=== PATIENT | male | born 1935 | race Caucasian/White ===

== ENCOUNTER 2016-08-17 05:06 | Observation (INO) | payer MEDICARE ==
[~2016-08-17] VITALS: Ht 177.8 cm; Wt 95.5 kg
[2016-08-17] VITALS (8 sets, daily range): BP systolic 146–195; BP diastolic 88–102; PULSE 71–84; RESP 15–20; TEMP 97.8–98.4; O2SAT 95–100
[~2016-08-17 05:06] MED LIST: ALPR0.5T99 PO; ASPI81 PO; ATOR40TA PO; AVOD0.5C PO; BRIM.2%O OU; IMDU60TA PO; LASI20TA PO; METO50TA PO; MINO50TA PO; PRIM50TA PO; PROT40TA PO; TAMS0.4C4 PO; TIMO0.255 OU
[2016-08-17] MEDS ORDERED: ATOR40TA16 PO (05:32)
[2016-08-17] MEDS ORDERED: ALPH0.1S EACH EYE (05:32)
[2016-08-17] MEDS ORDERED: ASPI81CH37 CHEW (05:32)
[2016-08-17] MEDS ORDERED: ALPR0.5T3 PO (05:32)
[2016-08-17] MEDS ORDERED: AVOD0.5C PO (05:32)
[2016-08-17] MEDS ORDERED: FURO1TAB62 PO (05:41)
[2016-08-17] MEDS ORDERED: METO50TA PO (05:41)
[2016-08-17] MEDS ORDERED: ISOS30TA3 PO (05:41)
[2016-08-17] MEDS ORDERED: MINO50CA PO (05:43)
[2016-08-17] MEDS ORDERED: TIMO5SOL EACH EYE (05:43)
[2016-08-17] MEDS ORDERED: PRIM250T5 PO (05:43)
[2016-08-17] MEDS ORDERED: PANT40TA3 PO (05:43)
[2016-08-17] MEDS ORDERED: SODIUM CHLORIDE 0.9% FLUSH 5 ML FLUSH IVF PRN ×2 (05:45→07:00)
--- NOTE | 2016-08-17 05:56 | PD ---
HPI Chief Complaint: Numbness/Tingling Time Seen by Provider: 05:19 Travel History International Travel<30 days: No Contact w/Intl Traveler<30days: No Traveled to known affect area: No History of Present Illness HPI Is a 81 year-old man who presents to the emergency department complaining of numbness tingling in his right side as well as lightheadedness dizziness. He reports some dizziness intermittently for the past month or so. Is especially bad today to the point that he couldn't walk without holding on the covarrubias. Yesterday evening about 5 or 6:00 he started to notice numbness tingling paresthesias in the right arm. He didn't notice any overt weakness or clumsiness in the arm. He went to bed thinking it would go away and then woke up with prominent persisting symptoms. He's never had these type of symptoms before. He notices that some of the leg as well. He called family who helped him get to the emergency department with a pretty much at a care and because of his unsteadiness and generalized weakness although no focal weakness on the right side. History Past Medical History Narrative Medical CAD, history of stents, remote CABG Glaucoma Hypertension hyperlipidemia CHF Tetanus Vaccination: Unknown Influenza Vaccination: Yes Social History Alcohol Use: No Tobacco Use: No Allergies-Medications (Allergen,Severity, Reaction): Coded Allergies: No Known Allergies (Verified , 08/17/16) Reported Meds & Prescriptions Reported Meds & Active Scripts Active Reported Timolol Opth Drops 0.25 % Soln 1 Drop EACH EYE BID Primidone 250 Mg Tab 250 Mg PO TID Pantoprazole (Pantoprazole Sodium) 40 Mg Tab 40 Mg PO DAILY Minocycline (Minocycline HCl) 50 Mg Cap 50 Mg PO BID Metoprolol Tartrate 50 Mg Tab 50 Mg PO BID Isosorbide Mononitrate ER (Isosorbide Mononitrate) 30 Mg Jackeline 30 Mg PO DAILY Lasix (Furosemide) 20 Mg Tab 20 Mg PO DAILY Avodart (Dutasteride) 0.5 Mg Cap 0.5 Mg PO DAILY Alphagan P Opth Drops (Brimonidine Tartrate) 0.1% Soln 1 Drop EACH EYE Q8HR Atorvastatin (Atorvastatin Calcium) 40 Mg Tab 40 Mg PO HS Aspirin Low Dose (Aspirin) 81 Mg Chew 81 Mg CHEW DAILY Alprazolam 0.5 Mg Tab 0.5 Mg PO Q8H PRN Review of Systems Except as stated in HPI: all other systems reviewed are Neg Physical Exam Narrative GENERAL: 81 year-old man, no acute distress. SKIN: Warm and dry. HEAD: Atraumatic. Normocephalic. EYES: Pupils equal and round. No scleral icterus. No injection or drainage. ENT: No nasal bleeding or discharge. Mucous membranes pink and moist. NECK: Trachea midline. No JVD. CARDIOVASCULAR: Regular rate and rhythm. No murmur appreciated. RESPIRATORY: No accessory muscle use. Clear to auscultation. Breath sounds equal bilaterally. GASTROINTESTINAL: Abdomen soft, non-tender, nondistended. Hepatic and splenic margins not palpable. MUSCULOSKELETAL: No obvious deformities. No clubbing. No cyanosis. No edema. NEUROLOGICAL: Awake and alert. Cranial nerves II through XII are intact. He has left beating nystagmus on leftward gaze. EOMs are otherwise intact. Normal finger to nose. Strength full and equal upper and lower extremities. Sensation to light touch intact and symmetric upper and lower extremities. PSYCHIATRIC: Appropriate mood and affect; insight and judgment normal. Data Data Last Documented VS Vital Signs Date Time Temp Pulse Resp B/P Pulse Ox O2 Delivery O2 Flow Rate FiO2 08/17/16 06:00 18 99 08/17/16 06:00 Room Air 08/17/16 05:14 98.1 84 184/91 Orders Electrocardiogram (08/17/16 05:38) Prothrombin Time / Inr (Pt) (08/17/16 05:38) Act Partial Throm Time (Ptt) (08/17/16 05:38) Complete Blood Count With Diff (08/17/16 05:38) Comprehensive Metabolic Panel (08/17/16 05:38) Urinalysis - C+S If Indicated (08/17/16 05:38) Ct Brain W/O Iv Contrast(Rout) (08/17/16 05:38) Chest, Single Ap (08/17/16 05:38) Ecg Monitoring (08/17/16 05:38) Iv Access Insert/Monitor (08/17/16 05:38) Oximetry (08/17/16 05:38) Sodium Chloride 0.9% Flush (Ns Flush) (08/17/16 05:45) Admit Order (Ed Use Only) (08/17/16 ) Labs Laboratory Tests Test 08/17/16 06:05 White Blood Count 6.4 TH/MM3 Red Blood Count 4.35 MIL/MM3 Hemoglobin 13.5 GM/DL Hematocrit 40.1 % Mean Corpuscular Volume 92.3 FL Mean Corpuscular Hemoglobin 31.1 PG Mean Corpuscular Hemoglobin 33.7 % Concent Red Cell Distribution Width 12.3 % Platelet Count 155 TH/MM3 Mean Platelet Volume 8.3 FL Neutrophils (%) (Auto) 70.9 % Lymphocytes (%) (Auto) 15.5 % Monocytes (%) (Auto) 8.8 % Eosinophils (%) (Auto) 4.4 % Basophils (%) (Auto) 0.4 % Neutrophils # (Auto) 4.5 TH/MM3 Lymphocytes # (Auto) 1.0 TH/MM3 Monocytes # (Auto) 0.6 TH/MM3 Eosinophils # (Auto) 0.3 TH/MM3 Basophils # (Auto) 0.0 TH/MM3 CBC Comment DIFF FINAL Differential Comment Prothrombin Time 10.8 SEC Prothromb Time International 1.0 RATIO Ratio Activated Partial 27.3 SEC Thromboplast Time Sodium Level 141 MEQ/L Potassium Level 4.5 MEQ/L Chloride Level 106 MEQ/L Carbon Dioxide Level 29.5 MEQ/L Anion Gap 6 MEQ/L Blood Urea Nitrogen 21 MG/DL Creatinine 1.50 MG/DL Estimat Glomerular Filtration 45 ML/MIN Rate Random Glucose 143 MG/DL Calcium Level 8.4 MG/DL Total Bilirubin 0.3 MG/DL Aspartate Amino Transf 17 U/L (AST/SGOT) Alanine Aminotransferase 28 U/L (ALT/SGPT) Alkaline Phosphatase 84 U/L Total Protein 7.2 GM/DL Albumin 3.5 GM/DL [facility] Medical Decision Making Medical Screen Exam Complete: Yes Emergency Medical Condition: Yes Interpretation(s) My review of EKG: Normal sinus rhythm at a rate of 68, normal axis, normal intervals, some lateral T-wave flattening is nonspecific. LABS: CBC is unremarkable. CMP remarkable for mildly elevated BUN and creatinine. Coags pending CT head: Mild central cortical atrophy. No acute findings. Chest x-ray: Lungs are clear. Differential Diagnosis CVA, paresthesias, radiculopathy, other Narrative Course Medical decision making INITIAL: 81-year-old male presents of right sided paresthesias and numbness. She has some dizziness as well as left beating nystagmus. No dysmetric or or focal weakness. Exam is otherwise intact. We'll check labs, x-ray, CT head, reassess. FINAL: Initial studies are unremarkable. We'll plan admission for observation, MRI, TIA/CVA workup. Admitting Information Admitting Physician Requests: Observation Chase Ventura MD Aug 17, 2016 05:56
--- NOTE | 2016-08-17 06:13 | RADHPO ---
EXAM DATE/TIME: 08/17/2016 05:46 [facility] COMPARISON: CHEST SINGLE AP, December 07, 2015, 19:09. INDICATIONS : Short of breath with dizziness. MEDICAL HISTORY : Cardiovascular disease. SURGICAL HISTORY : 6 cardiac stents. ENCOUNTER: Initial ACUITY: 1 day PAIN SCORE: 5/10 LOCATION: Right chest FINDINGS: A single view of the chest demonstrates the lungs to be symmetrically aerated without evidence of mas s, infiltrate or effusion. The cardiomediastinal contours are unremarkable. Osseous structures are intact. Prior median sternotomy. CONCLUSION: The lungs are clear. Fritz Corral MD on August 17, 2016 at 6:11 Board Certified Radiologist. This report was verified electronically.
[2016-08-17 06:22] LABS: AUTOMATED NEUTROPHIL # 4.5 TH/MM3 (1.8-7.7); BASOPHIL % 0.4 % (0.0-2.0); EOSINOPHIL # 0.3 TH/MM3 (0-0.4); EOSINOPHIL % 4.4 % (0.0-4.0); HEMATOCRIT 40.1 % (39.0-51.0); HEMO FLAGS DIFF FINAL; LYMPH % 15.5 % (9.0-44.0); MEAN CELL VOLUME 92.3 FL (80.0-100.0); MEAN CORPUSCULAR HEMOGLOBIN 31.1 PG (27.0-34.0); MEAN CORPUSCULAR HGB CONC 33.7 % (32.0-36.0); MONO % 8.8 % (0.0-8.0); NEUT % 70.9 % (16.0-70.0); PLATELET COUNT 155 TH/MM3 (150-450); RED BLOOD COUNT 4.35 MIL/MM3 (4.50-5.90); RED CELL DISTRIBUTION WIDTH 12.3 % (11.6-17.2); WHITE BLOOD COUNT 6.4 TH/MM3 (4.0-11.0)
--- NOTE | 2016-08-17 06:23 | RADHPO ---
EXAM DATE/TIME: 08/17/2016 06:12 [facility] COMPARISON: No previous studies available for comparison. INDICATIONS : Right sided facial numbness and tingling. RADIATION DOSE: 58.94 CTDIvol (mGy) MEDICAL HISTORY : Myocardial infarction. Hypertension. SURGICAL HISTORY : Coronary artery stent. ENCOUNTER: Initial ACUITY: 1 day PAIN SCALE: 0/10 LOCATION: cranial TECHNIQUE: Multiple contiguous axial images were obtained of the head. Using automated exposure control and adj ustment of the mA and/or kV according to patient size, radiation dose was kept as low as reasonably a chievable to obtain optimal diagnostic quality images. FINDINGS: CEREBRUM: The ventricles, sulci, and basal cisterns are prominent, characteristic of moderate central and corti gemma atrophy.. There is good huang/white matter differentiation. No evidence of midline shift, mass l esion, hemorrhage or acute infarction. No extra-axial fluid collections are seen. POSTERIOR FOSSA: The cerebellum and brainstem are intact. The 4th ventricle is midline. The cerebellopontine angle i s unremarkable. EXTRACRANIAL: The visualized portion of the orbits is intact. SKULL: The calvaria is intact. No evidence of skull fracture. CONCLUSION: Moderate central and cortical atrophy. No acute findings. Fritz Corral MD on August 17, 2016 at 6:20 Board Certified Radiologist. This report was verified electronically.
[2016-08-17 06:29] LABS: CHLORIDE 106 MEQ/L (98-107); POTASSIUM 4.5 MEQ/L (3.5-5.1); SODIUM (NA) 141 MEQ/L (136-145)
[2016-08-17 06:33] LABS: ANION GAP 6 MEQ/L (5-15); BICARBONATE 29.5 MEQ/L (21.0-32.0); BLOOD UREA NITROGEN 21 MG/DL (7-18)
[2016-08-17 06:36] LABS: ALT (GPT) 28 U/L (12-78); AST (GOT) 17 U/L (15-37); GLOMERULAR FILTRATION RATE 45 ML/MIN (>89)
[2016-08-17 06:38] LABS: TOTAL BILIRUBIN ADULT 0.3 MG/DL (0.2-1.0)
[2016-08-17 06:39] LABS: ALKALINE PHOSPHATASE 84 U/L (45-117)
[2016-08-17 06:54] LABS: APTT (PATIENT) 27.3 SEC (24.3-30.1); PROTHROMBIN TIME - PATIENT 10.8 SEC (9.8-11.6)
[2016-08-17] MEDS ORDERED: PANTOPRAZOLE SOD 20 MG DELAYED RELEASE TAB PO ONE ×2 (07:15→10:00)
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
[2016-08-17] MEDS ORDERED: ALPRAZolam 0.5 MG TAB PO PRN (08:45)
[2016-08-17] MEDS: ASPIRIN 325 MG TAB PO SCH (09:56)
[2016-08-17] MEDS: METOPROLOL TARTRATE 50 MG TAB PO SCH ×2 (09:56→20:01)
[2016-08-17] MEDS: TIMOLOL MALEATE 0.25% OPHT SOLN 5 ML BTL EACH EYE SCH ×2 (09:57→20:01)
[2016-08-17] MEDS: MINOCYCLINE HCL 50 MG CAP PO SCH ×2 (10:00→20:01)
[2016-08-17] MEDS: SODIUM CHLORIDE 0.9% FLUSH 5 ML FLUSH IVF SCH ×2 (10:01→20:01)
[2016-08-17] MEDS: ISOSORBIDE MONONITRATE 30 MG TAB PO SCH (10:01)
[2016-08-17] MEDS: KETOCONAZOLE 2% CREAM 15 GM TOPICAL SCH ×2 (10:08→20:01)
[2016-08-17] MEDS: PRIMIDONE 250 MG TAB PO SCH ×3 (10:08→17:12)
[2016-08-17] MEDS: FINASTERIDE 5 MG TAB PO SCH (10:08)
--- NOTE | 2016-08-17 11:13 | EC ---
Study Study Date:08/17/2016 STUDY CONCLUSIONS SUMMARY - Left ventricle: The cavity size was normal. Wall thickness was normal. Systolic function was normal. The estimated ejection fraction was in the range of 50% to 55%. Wall motion was normal; there were no regional wall motion abnormalities. Doppler parameters are consistent with abnormal left ventricular relaxation (grade 1 diastolic dysfunction). - Aortic valve: Trace regurgitation. - Pulmonic valve: Mild regurgitation. If LV function is below 40, please consider prescribing an ACEI or ARB or document rationale for non-use. PROCEDURE DATA STUDY STATUS: Elective. Procedure: Transthoracic echocardiography. Image quality was good. Scanning was performed from the parasternal, apical, and subcostal acoustic windows. Study completion: The patient tolerated the procedure well. Transthoracic echocardiography. M-mode, complete 2D, complete spectral Doppler, and color Doppler. Patient status: Inpatient. CARDIAC ANATOMY LEFT VENTRICLE: The cavity size was normal. Wall thickness was normal. Systolic function was normal. The estimated ejection fraction was in the range of 50% to 55%. Wall motion was normal; there were no regional wall motion abnormalities. Doppler parameters are consistent with abnormal left ventricular relaxation (grade 1 diastolic dysfunction). AORTIC VALVE: Trileaflet; mildly thickened, mildly calcified leaflets. Doppler: Transvalvular velocity was within the normal range. There was no stenosis. Trace regurgitation. Mean gradient: 5mm Hg (S). AORTA: Aortic root: The aortic root was normal in size. MITRAL VALVE: Structurally normal valve. Doppler: Transvalvular velocity was within the normal range. There was no evidence for stenosis. No regurgitation. LEFT ATRIUM: The atrium was normal in size. RIGHT VENTRICLE: The cavity size was normal. Wall thickness was normal. PULMONIC VALVE: Doppler: Transvalvular velocity was within the normal range. There was no evidence for stenosis. Mild regurgitation. TRICUSPID VALVE: Structurally normal valve. Doppler: Transvalvular velocity was within the normal range. No regurgitation. PULMONARY ARTERY: The main pulmonary artery was normal-sized. Systolic pressure was within the normal range. RIGHT ATRIUM: The atrium was normal in size. PERICARDIUM: There was no pericardial effusion. SYSTEMIC VEINS: Inferior vena cava: The vessel was normal in size. BASIC MEASUREMENTS ADULT Normal Left ventricle LV internal dimension, ED, chordal level, *40.7 mm 43-52 PLAX LV internal dimension, ES, chordal level, 32.2 mm 23-38 PLAX Fractional shortening, chordal level, PLAX *21 % >29 LV posterior wall thickness, ED 8.15 mm IVS/LVPW ratio, ED 1.03 <1.3 Ventricular septum Septal thickness, ED 8.41 mm Left atrium Anterior-posterior dimension 33 mm Right ventricle RV internal dimension, ED, PLAX 21.7 mm 19-38 DOPPLER MEASUREMENTS ADULT Normal Main pulmonary artery Pressure, S 13 mm Hg =30 Aortic valve Peak velocity, S 143 cm/s Mean velocity, S 100 cm/s VTI, S 35.2 cm Mean gradient, S 5 mm Hg Mitral valve Peak E-wave velocity 50.3 cm/s Peak A-wave velocity 81.9 cm/s Peak E/A ratio 0.6 Tricuspid valve Regurgitant peak velocity 144 cm/s Peak RV-RA gradient, S 8 mm Hg Maximal regurgitant velocity 144 cm/s Systemic veins Estimated CVP 5 mm Hg Right ventricle RV pressure, S 13 mm Hg <30 LEGEND: Mean values are shown as u=mean value. Asterisk (*) martinez values outside specified normal range. Prepared and signed by Jamie Devries [id number]
[2016-08-17] MEDS: LEVOTHYROXINE SODIUM 25 MCG TAB PO SCH (12:00)
[2016-08-17] MEDS: BRIMONIDINE OPTH EACH EYE SCH ×2 (12:59→20:02)
--- NOTE | 2016-08-17 14:41 | EKG ---
Date Performed: 08/17/2016 Time Performed: 05:48:14 PTAGE: 81 years EKG: Sinus rhythm . Within normal limits Compared to prior tracing no significant change PREVIOUS TRACING : 12/07/15 DOCTOR: Alvin Wynn Interpretating Date/Time 08/17/2016 14:39:23
--- NOTE | 2016-08-17 15:52 | RADHPO ---
EXAM DATE/TIME: 08/17/2016 14:35 [facility] COMPARISON: No previous studies available for comparison. INDICATIONS : Paresthesia. MEDICAL HISTORY : Myocardial infarction. Hypercholesterolemia. Gastroesophageal reflux disease. Glaucoma. Cerebrovascul ar accident. Coronary artery disease. Peripheral neuropathy. Hypertension. SURGICAL HISTORY : Coronary stent x 6. Right knee surgery. ENCOUNTER: Initial ACUITY: 1 day PAIN SCORE: 0/10 LOCATION: Bilateral neck PEAK SYSTOLIC VELOCITIES (cm/sec): ICA/CCA RATIO: Right: 1.2 Left: 0.8 ICA: Right: 77 Left: 83 CCA: Right: 63 Left: 105 ECA: Right: 76 Left: 124 VERTEBRAL: Right: 35 antegrade Left: 43 antegrade Elevated flow velocities and ICA/CCA ratios have been found to correlate with increased degrees of vessel stenosis, calculated as percentage of diameter relative to a normal segment of distal ICA/CCA FINDINGS: RIGHT CAROTID: Trace plaque of the bulb and proximal internal carotid artery. LEFT CAROTID: Trace plaque in the bulb and proximal internal carotid artery. VERTEBRAL ARTERIES: Antegrade flow is seen in both vertebral arteries. MISCELLANEOUS: None. CONCLUSION: Minimal atherosclerotic plaque of both carotid bifurcations. No hemodynamically significant narrowing . Harley Greene MD on August 17, 2016 at 15:49 Board Certified Radiologist. This report was verified electronically.
[2016-08-17] MEDS ORDERED: ATORVASTATIN 40 MG TAB PO SCH (21:00)
[2016-08-18 01:05] VITALS: BP 140/65; PULSE 65; RESP 16; TEMP 98.2; O2SAT 97
[2016-08-18 04:28] VITALS: BP 133/70; PULSE 66; RESP 18; TEMP 98; O2SAT 98
[2016-08-18 05:07] VITALS: BP 133/72; PULSE 66
[2016-08-18] MEDS: BRIMONIDINE OPTH EACH EYE SCH (05:55)
[2016-08-18] MEDS: LEVOTHYROXINE SODIUM 25 MCG TAB PO SCH (06:00)
[2016-08-18] MEDS: ISOSORBIDE MONONITRATE 30 MG TAB PO SCH (06:15)
--- NOTE | 2016-08-18 07:18 | HHI.PR ---
Subjective Remarks Feeling much better this morning. Numbness in right leg is resolved completely. He has slight numbness into his fingers on his right hand but no more numbness in right upper extremity. This has improved and he was able to walk to the restroom several times during the night without any difficulty although he did feel safer using the walker. Objective Vitals Vital Signs Date Time Temp Pulse Resp B/P Pulse Ox O2 Delivery O2 Flow Rate FiO2 08/18/16 05:07 66 133/72 08/18/16 04:28 98.0 66 18 133/70 98 08/18/16 01:05 98.2 65 16 140/65 97 08/17/16 20:23 97.8 78 20 195/88 97 08/17/16 19:49 98 21 08/17/16 16:00 98.4 74 18 153/89 98 08/17/16 12:00 97.8 78 18 146/88 95 08/17/16 08:30 97.9 71 20 176/102 100 08/17/16 08/17/16 08/18/16 15:00 23:00 07:00 Intake Total 570 ml Output Total 300 ml Balance 570 ml -300 ml Intake Oral 570 ml Output Urine Total 300 ml # Voids 2 1 GENERAL: Alert and oriented. Cooperative. No apparent distress. SKIN: Warm and dry. HEAD: Normocephalic. EYES: No scleral icterus. No injection or drainage. NECK: Supple, trachea midline. No JVD or lymphadenopathy. CARDIOVASCULAR: Regular rate and rhythm without murmurs, gallops, or rubs. RESPIRATORY: Breath sounds equal bilaterally. No accessory muscle use. GASTROINTESTINAL: Abdomen soft, non-tender, nondistended. Bowel sounds normoactive. MUSCULOSKELETAL: No cyanosis, or edema. Dupuytren's contracture noted bilaterally. BACK: Nontender without obvious deformity. No CVA tenderness. NEURO: Strength 5 out of 54 extremities. Moves all extremities to command. No gross focal neurologic deficits. Result Diagram: 08/17/1660408/17/16604 Urinary Catheter: No Vascular Central Line Catheter: No A/P Problem List: (1) Paresthesia Status: Acute Plan: Questionable etiology. No focal motor weakness on exam. Certainly has risk factors for cerebrovascular disease. I have increased his aspirin to full help dosing. May add back his previous Plavix dosing depending on workup. MRA, MRI pending. Echo and ultrasound okay. No significant abnormality noted on telemetry. (2) Vertigo Status: Acute Plan: Seems to be recurrent issue for the patient. Physical therapy has seen the patient. He reports that he feels much less dizzy today. Fall precautions urged at home. Provide walker and home health. (3) Coronary artery disease Status: Chronic Plan: Stable. Continue medications. Follow with outpatient commissioning editor. No chest pain. (4) Hypothyroidism Status: Chronic Plan: TSH above 8. Levothyroxine initiated. (5) Dyslipidemia Status: Chronic Plan: Continue medication. Check lipids. Discharge Planning Hopefully discharge home later today. Problem Qualifiers (1) Coronary artery disease: Ozzie Gil MD PhD Aug 18, 2016 07:18
--- NOTE | 2016-08-18 07:19 | HHI.FF ---
Face to Face Verification Diagnosis: (1) Paresthesia (2) Vertigo Physical Therapy Order: Evaluate and Treat, Improve ambulation, Strength and gait training Home Health Nursing Order: Signs/symptoms of disease process Nursing assessment with vital signs I have seen patient Moises CheemaJr pamela on 08/18/16. My clinical findings support the need for the requested home health care services because: Ltd mobility - disease progression High risk of falls I certify that my clinical findings support that this patient is homebound because: Unsteady gait/balance Ozzie Gil MD PhD Aug 18, 2016 07:19
[2016-08-18] MEDS ORDERED: WALKER/ADULT/FO1 MIS (07:22)
[2016-08-18 08:00] VITALS: BP 137/80; PULSE 69; RESP 16; TEMP 96.9; O2SAT 99
[2016-08-18] MEDS: MINOCYCLINE HCL 50 MG CAP PO SCH (08:00)
[2016-08-18] MEDS: FINASTERIDE 5 MG TAB PO SCH (08:01)
[2016-08-18] MEDS: METOPROLOL TARTRATE 50 MG TAB PO SCH (08:01)
[2016-08-18] MEDS: PRIMIDONE 250 MG TAB PO SCH (08:01)
[2016-08-18] MEDS: ASPIRIN 325 MG TAB PO SCH (08:02)
[2016-08-18] MEDS: TIMOLOL MALEATE 0.25% OPHT SOLN 5 ML BTL EACH EYE SCH (08:03)
[2016-08-18] MEDS: SODIUM CHLORIDE 0.9% FLUSH 5 ML FLUSH IVF SCH (08:04)
[2016-08-18] MEDS: KETOCONAZOLE 2% CREAM 15 GM TOPICAL SCH (08:06)
--- NOTE | 2016-08-18 08:52 | RADHPO ---
EXAM DATE/TIME: 08/18/2016 08:37 [facility] COMPARISON: No previous studies available for comparison. INDICATIONS : Cephalgia. Right hand numbness. MEDICAL HISTORY : Hypertension. Cardiovascular disease SURGICAL HISTORY : CABG Orthopedic. ENCOUNTER: Initial ACUITY: 2 day PAIN SCORE: 2/10 LOCATION: cranial TECHNIQUE: Multiplanar, multisequence MRI of the brain was performed without contrast. FINDINGS: CEREBRUM: The ventricles are normal for age. No evidence of midline shift, mass lesion, or hemorrhage. There i s moderate increased signal seen in the periventricular white matter. There is also focal 1 cm increa sed signal in the posterior left lateral aspect of the opal. This focal area at the opal demonstrates increased signal on the diffusion weighted images. No extraaxial fluid collections are seen. The pi tuitary gland and suprasellar cistern are normal in configuration. POSTERIOR FOSSA: The cerebellum and brainstem are intact. The 4th ventricle is midline. The cerebellopontine angle is unremarkable. The cerebellar tonsils are normal in position. DIFFUSION IMAGING: No focal areas of restricted diffusion are seen. No evidence of acute infarction. EXTRACRANIAL: The visualized portions of the orbits and paranasal sinuses are unremarkable. CONCLUSION: 1. Focal signal abnormality in the left opal on the diffusion-weighted images and flair images repres enting either a subacute area of infarction versus a prominent area of demyelination with T2 shine th rough phenomenon on the diffusion weighted images. 2. Increased signal throughout the periventricular white matter likely secondary to small vessel isch emic change. Harley Saeed MD on August 18, 2016 at 8:44 Board Certified Radiologist. This report was verified electronically.
--- NOTE | 2016-08-18 08:54 | RADHPO ---
EXAM DATE/TIME: 08/18/2016 08:37 [facility] COMPARISON: No previous studies available for comparison. INDICATIONS : Cephalgia. Right hand numbness. MEDICAL HISTORY : Hypertension. Cardiovascular disease SURGICAL HISTORY : CABG Orthopedic. ENCOUNTER: Initial ACUITY: 2 day PAIN SCORE: 2/10 LOCATION: cranial Please note a normal MRA of the brain does not entirely exclude the possibility of a small aneurysm, nor the possibility of distal intracranial vessel disease. TECHNIQUE: 3D time of flight MRA was performed. Source images, multiplanar STS MIP, and 3D volume MIP reconstru ctions were reviewed. FINDINGS: There is excellent visualization of the major intracranial arteries out to the second-order branch ve ssels. There is no evidence for aneurysm, vessel truncation or stenosis, and no evidence for vascula r malformation. The internal carotid arteries are patent bilaterally. The left internal carotid artery primarily ends as the left middle cerebral artery. The right and left anterior cerebral arteries arise from the rig ht internal carotid artery through a patent anterior communicating artery. The basilar is formed from the 2 vertebral arteries. The basilar artery is seen to normally bifurcated to the posterior cerebra l arteries. CONCLUSION: No acute disease. Normal variant anatomy as described above. Harley Saeed MD on August 18, 2016 at 8:51 Board Certified Radiologist. This report was verified electronically.
[2016-08-18] MEDS ORDERED: PANTOPRAZOLE SOD 40 MG DELAYED RELEASE TAB PO SCH (09:00)
[2016-08-18 09:59] LABS: CHLORIDE 106 MEQ/L (98-107); POTASSIUM 4.1 MEQ/L (3.5-5.1); SODIUM (NA) 141 MEQ/L (136-145)
[2016-08-18 10:03] LABS: ANION GAP 8 MEQ/L (5-15); BLOOD UREA NITROGEN 16 MG/DL (7-18)
[2016-08-18 10:06] LABS: ALT (GPT) 26 U/L (12-78); AST (GOT) 16 U/L (15-37); GLOMERULAR FILTRATION RATE 49 ML/MIN (>89)
[2016-08-18 10:08] LABS: TOTAL BILIRUBIN ADULT 0.5 MG/DL (0.2-1.0)
[2016-08-18 10:09] LABS: ALKALINE PHOSPHATASE 86 U/L (45-117)
[2016-08-18 10:30] LABS: BLOOD, URINE NEG (NEG); GLUCOSE,URINE NEG (NEG); KETONE, URINE NEG (NEG); NITRITE,URINE NEG (NEG)
[2016-08-18 10:35] LABS: METHOD OF COLLECTION CATH
[2016-08-18 10:36] LABS: COMMENT (UR) CULT NOT INDICATED; CULTURE IF INDICATED CULT NOT INDICATED; URINE COLOR YELLOW (YELLW/STRAW); WBC, URINE 0-2 /hpf (0-5)
[2016-08-18 10:53] LABS: HDL CHOLESTEROL 37.6 MG/DL (40.0-60.0)
[2016-08-18 12:00] VITALS: BP 127/71; PULSE 70; RESP 16; TEMP 97.1; O2SAT 98
[2016-08-18] MEDS ORDERED: ATOR1TAB18 PO (12:30)
[2016-08-18] MEDS ORDERED: CLOP75TA PO (12:30)
[2016-11-20] MEDS ORDERED: TIMO1SOL6 EACH EYE (09:59)
[2016-11-20] MEDS ORDERED: PRIM250 PO (09:59)
== END 2016-08-18 14:20 | disposition home health service (06) ==
LOC: PHED 05:06 → PHEDA 06:44 → PH3A 08:30
PROVIDERS: ADMIT Family Medicine; ATTEND Family Medicine
DX: R20.9 Unspecified disturbances of skin sensation (principal); R42 Dizziness and giddiness; I25.10 Atherosclerotic heart disease of native coronary artery without angina pectoris; H40.9 Unspecified glaucoma; I11.0 Hypertensive heart disease with heart failure; E03.9 Hypothyroidism, unspecified; E78.5 Hyperlipidemia, unspecified; K21.9 Gastro-esophageal reflux disease without esophagitis; Z95.5 Presence of coronary angioplasty implant and graft; Z95.1 Presence of aortocoronary bypass graft; Z79.82 Long term (current) use of aspirin
CPT/HCPCS: 70450; 70544; 70551; 71010; 80053; 80061; 81001; 82607; 84443; 85025; 85610; 85730; 92610; 93005; 93306; 93880; 97162; 97166; 99285; G0378; G8987; G8988; G8989; G8996; G8997; G8998

== ENCOUNTER 2016-11-20 09:21 | Emergency (ER) | payer MEDICARE ==
[~2016-11-20 09:21] MED LIST changes: +ALPH0.1S EACH EYE; +ALPR0.5T3 PO; -ALPR0.5T99 PO; -ASPI81 PO; +ASPI81CH37 CHEW; +ATOR1TAB18 PO; -ATOR40TA PO; +ATOR40TA16 PO; -BRIM.2%O OU; +CLOP75TA PO; +FURO1TAB62 PO; -IMDU60TA PO; +ISOS30TA3 PO; -LASI20TA PO; +MINO50CA PO; -MINO50TA PO; +PANT40TA3 PO; +PRIM250T5 PO; -PRIM50TA PO; -PROT40TA PO; -TAMS0.4C4 PO; -TIMO0.255 OU; +TIMO5SOL EACH EYE; +WALKER/ADULT/FO1 MIS
[2016-11-20 09:25] VITALS: BP 139/84; PULSE 96; RESP 20; TEMP 98.8; O2SAT 99
[2016-11-20 09:42] VITALS: O2SAT 97
--- NOTE | 2016-11-20 09:42 | PD ---
HPI Chief Complaint: Numbness/Tingling Time Seen by Provider: 09:35 Travel History International Travel<30 days: No Contact w/Intl Traveler<30days: No Traveled to known affect area: No History of Present Illness HPI 81-year-old male with history of stroke with a right sided weakness 3 months ago , presents to the ER today because he states that he has noticed that over the last month, he has had increased weakness in the right arm, difficulty controlling the right arm, having intermittent spasming of the right arm. He states that it is intermittent and then goes away. He denies any difficulty talking, walking, or any other new neurological processes. Modifying Factors: None Associated Signs & Symptoms: Right arm spasming, weakness Risk Factors: History of a stroke with a right sided weakness PFSH Past Medical History Asthma: No Autoimmune Disease: No Blood Disorders: No Anxiety: Yes Depression: Yes (CURRENTLY ON XANAX) Heart Rhythm Problems: No Cancer: No Cardiovascular Problems: Yes (TRIPLE CARDIAC BYPASS 15 YRSAGO, STENTS) High Cholesterol: Yes Chest Pain: No Congestive Heart Failure: No COPD: No Cerebrovascular Accident: Yes (05/03/09) Coronary Artery Disease: Yes Diabetes: No Diminished Hearing: No Endocrine: No GERD: Yes Glaucoma: Yes Genitourinary: No Hepatitis: No Hiatal Hernia: No Hypertension: Yes Immune Disorder: No Kidney Stones: No Musculoskeletal: Yes (LEFT HUMERUS FX, RIGHT WRIST FX) Neurologic: Yes (TREMORS) Psychiatric: Yes Reproductive: No Respiratory: No Immunizations Current: Yes Migraines: No Myocardial Infarction: Yes (1986) Renal Failure: No Seizures: No Sickle Cell Disease: No Sleep Apnea: No Ulcer: No Past Surgical History Abdominal Surgery: Yes (APPY AROUND 1957) Appendectomy: Yes Arteriovenous Shunt: No Cardiac Surgery: Yes (TRIPLE BYPASS 1995) Coronary Stent: Yes (X6 2005) Ear Surgery: No Endocrine Surgery: No Eye Surgery: Yes (CATARACT BILAT) Genitourinary Surgery: No Gynecologic Surgery: No Insulin Pump: No Joint Replacement: Yes (RIGHT KNEE REPLACEMENT) Oral Surgery: No Pacemaker: No Thoracic Surgery: No Other Surgery: Yes Social History Alcohol Use: No Tobacco Use: No Substance Use: No Allergies-Medications (Allergen,Severity, Reaction): Coded Allergies: No Known Allergies (Verified , 11/20/16) Reported Meds & Prescriptions Reported Meds & Active Scripts Active Clopidogrel (Clopidogrel Bisulfate) 75 Mg Tab 75 Mg PO DAILY Walker/Adult/Folding (Device) 1 Mis Mis 1 Ea .ROUTE DIRECTED Reported Betimol Opth Drops (Timolol Opth Drops) 0.25 % Soln 1 Drop EACH EYE BID Mysoline (Primidone) 250 Mg Tab 250 Mg PO TID Pantoprazole (Pantoprazole Sodium) 40 Mg Tab 40 Mg PO DAILY Minocycline (Minocycline HCl) 50 Mg Cap 50 Mg PO BID Metoprolol Tartrate 50 Mg Tab 50 Mg PO BID Isosorbide Mononitrate ER (Isosorbide Mononitrate) 30 Mg Jackeline 30 Mg PO DAILY Lasix (Furosemide) 20 Mg Tab 20 Mg PO DAILY Alphagan P Opth Drops (Brimonidine Tartrate) 0.1% Soln 1 Drop EACH EYE Q8HR Atorvastatin (Atorvastatin Calcium) 40 Mg Tab 40 Mg PO HS Aspirin Low Dose (Aspirin) 81 Mg Chew 81 Mg CHEW DAILY Alprazolam 0.5 Mg Tab 0.5 Mg PO Q8H PRN Review of Systems Except as stated in HPI: all other systems reviewed are Neg Physical Exam Narrative GENERAL: Well-developed elderly white male patient currently in mild distress. Awake and oriented 3. SKIN: Focused skin assessment warm/dry. HEAD: Atraumatic. Normocephalic. EYES: Pupils equal and round. No scleral icterus. No injection or drainage. ENT: No nasal bleeding or discharge. Mucous membranes pink and moist. NECK: Trachea midline. No JVD. CARDIOVASCULAR: Regular rate and rhythm. No murmur appreciated. RESPIRATORY: No accessory muscle use. Clear to auscultation. Breath sounds equal bilaterally. GASTROINTESTINAL: Abdomen soft, non-tender, nondistended. Hepatic and splenic margins not palpable. MUSCULOSKELETAL: No obvious deformities. No clubbing. No cyanosis. No edema. NEUROLOGICAL: Awake and alert. No obvious cranial nerve deficits. Normal speech. There is notable right arm pronator drift, weakness, and right wrist drop. He has notable increased tremor in the right arm. PSYCHIATRIC: Appropriate mood and affect; insight and judgment normal. Data Data Last Documented VS Vital Signs Date Time Temp Pulse Resp B/P Pulse Ox O2 Delivery O2 Flow Rate FiO2 11/20/16 09:42 97 Room Air 11/20/16 09:25 98.8 96 20 139/84 Orders Electrocardiogram (11/20/16 09:35) Prothrombin Time / Inr (Pt) (11/20/16 09:35) Act Partial Throm Time (Ptt) (11/20/16 09:35) Complete Blood Count With Diff (11/20/16 09:35) Comprehensive Metabolic Panel (11/20/16 09:35) Ct Brain W/O Iv Contrast(Rout) (11/20/16 09:35) Ecg Monitoring (11/20/16 09:35) Iv Access Insert/Monitor (11/20/16 09:35) Oximetry (11/20/16 09:35) Sodium Chloride 0.9% Flush (Ns Flush) (11/20/16 09:45) Labs Laboratory Tests Test 11/20/16 10:01 White Blood Count 6.0 TH/MM3 Red Blood Count 4.27 MIL/MM3 Hemoglobin 13.5 GM/DL Hematocrit 39.2 % Mean Corpuscular Volume 91.9 FL Mean Corpuscular Hemoglobin 31.6 PG Mean Corpuscular Hemoglobin 34.4 % Concent Red Cell Distribution Width 12.2 % Platelet Count 126 TH/MM3 Mean Platelet Volume 10.4 FL Neutrophils (%) (Auto) 75.5 % Lymphocytes (%) (Auto) 13.1 % Monocytes (%) (Auto) 8.1 % Eosinophils (%) (Auto) 3.0 % Basophils (%) (Auto) 0.3 % Neutrophils # (Auto) 4.5 TH/MM3 Lymphocytes # (Auto) 0.8 TH/MM3 Monocytes # (Auto) 0.5 TH/MM3 Eosinophils # (Auto) 0.2 TH/MM3 Basophils # (Auto) 0.0 TH/MM3 CBC Comment DIFF FINAL Differential Comment Prothrombin Time 11.1 SEC Prothromb Time International 1.0 RATIO Ratio Activated Partial 24.7 SEC Thromboplast Time Sodium Level 138 MEQ/L Potassium Level 4.9 MEQ/L Chloride Level 101 MEQ/L Carbon Dioxide Level 26.8 MEQ/L Anion Gap 10 MEQ/L Blood Urea Nitrogen 19 MG/DL Creatinine 1.70 MG/DL Estimat Glomerular Filtration 39 ML/MIN Rate Random Glucose 380 MG/DL Calcium Level 8.8 MG/DL Total Bilirubin 0.5 MG/DL Aspartate Amino Transf 13 U/L (AST/SGOT) Alanine Aminotransferase 24 U/L (ALT/SGPT) Alkaline Phosphatase 120 U/L Total Protein 7.6 GM/DL Albumin 3.6 GM/DL MDM Medical Decision Making Medical Screen Exam Complete: Yes Emergency Medical Condition: Yes Medical Record Reviewed: Yes Interpretation(s) Laboratory Tests Test 11/20/16 10:01 Red Blood Count 4.27 MIL/MM3 (4.50-5.90) Platelet Count 126 TH/MM3 (150-450) Neutrophils (%) (Auto) 75.5 % (16.0-70.0) Monocytes (%) (Auto) 8.1 % (0.0-8.0) Lymphocytes # (Auto) 0.8 TH/MM3 (1.0-4.8) Blood Urea Nitrogen 19 MG/DL (7-18) Creatinine 1.70 MG/DL (0.60-1.30) Estimat Glomerular Filtration 39 ML/MIN (>89) Rate Random Glucose 380 MG/DL (74-106) Aspartate Amino Transf 13 U/L (15-37) (AST/SGOT) Alkaline Phosphatase 120 U/L (45-117) Last [address] 11/20/16 0935 Signed Impressions: Service Date/Time: Friday, November 20, 2016 10:11 - CONCLUSION: Negative for acute process. Avtar Freed MD FACR Differential Diagnosis Right arm spasming and weaknessmuscle spasms versus acute CVA versus metabolic issues Narrative Course CAT scan did not show any signs of acute processes. Lab work did not show significant metabolic issues. At this point, this appears to be in the areas involved in previous stroke and I do not see any signs that there is an acute issue at this point. My plan would be to have him follow-up with primary care physician regarding this issue. We will give him symptomatic relief for muscle spasms. Return for any worsening in symptoms as needed. The plan has been discussed with him and he states understanding. Patient also states that he had seen Dr. Tomlin who did not state anything to him. At this point, he should follow-up further with primary care physician and neurology. Diagnosis Primary Impression: Muscle spasm Med/Other Pt SpecificInfo: Prescription(s) given Scripts Cyclobenzaprine (Flexeril)10 Mg Tab10 Mg PO TID #15 TAB Ref 0 Prov:Vaughn Skinner MD 11/20/16 Disposition: 01 DISCHARGE HOME Condition: Stable Vaughn Skinner MD Nov 20, 2016 09:41
[2016-11-20] MEDS ORDERED: SODIUM CHLORIDE 0.9% FLUSH 10 ML FLUSH IVF PRN (09:45)
[2016-11-20] MEDS ORDERED: TIMO1SOL6 EACH EYE ×2 (09:59)
[2016-11-20] MEDS ORDERED: PRIM250 PO ×2 (09:59)
[2016-11-20 10:20] LABS: CHLORIDE 101 MEQ/L (98-107); POTASSIUM 4.9 MEQ/L (3.5-5.1); SODIUM (NA) 138 MEQ/L (136-145)
[2016-11-20 10:24] LABS: ANION GAP 10 MEQ/L (5-15); BICARBONATE 26.8 MEQ/L (21.0-32.0); BLOOD UREA NITROGEN 19 MG/DL (7-18)
[2016-11-20 10:27] LABS: ALT (GPT) 24 U/L (12-78); AST (GOT) 13 U/L (15-37); GLOMERULAR FILTRATION RATE 39 ML/MIN (>89)
[2016-11-20 10:28] LABS: TOTAL BILIRUBIN ADULT 0.5 MG/DL (0.2-1.0)
[2016-11-20 10:30] LABS: ALKALINE PHOSPHATASE 120 U/L (45-117)
[2016-11-20 10:31] LABS: AUTOMATED NEUTROPHIL # 4.5 TH/MM3 (1.8-7.7); BASOPHIL % 0.3 % (0.0-2.0); EOSINOPHIL # 0.2 TH/MM3 (0-0.4); HEMATOCRIT 39.2 % (39.0-51.0); HEMO FLAGS DIFF FINAL; LYMPH % 13.1 % (9.0-44.0); LYMPHOCYTE # 0.8 TH/MM3 (1.0-4.8); MEAN CELL VOLUME 91.9 FL (80.0-100.0); MEAN CORPUSCULAR HEMOGLOBIN 31.6 PG (27.0-34.0); MEAN CORPUSCULAR HGB CONC 34.4 % (32.0-36.0); MONO % 8.1 % (0.0-8.0); NEUT % 75.5 % (16.0-70.0); PLATELET COUNT 126 TH/MM3 (150-450); RED BLOOD COUNT 4.27 MIL/MM3 (4.50-5.90); RED CELL DISTRIBUTION WIDTH 12.2 % (11.6-17.2)
--- NOTE | 2016-11-20 10:37 | RADHPO ---
EXAM DATE/TIME: 11/20/2016 10:11 [facility] COMPARISON: CT BRAIN W/O CONTRAST, August 17, 2016, 6:12. INDICATIONS : Right upper extremity weakness and uncontrollable movements. RADIATION DOSE: 63.39 CTDIvol (mGy) MEDICAL HISTORY : Cerebrovascular disease. Seizures. Myocardial infarction.Hypertension. SURGICAL HISTORY : Appendectomy. ENCOUNTER: Initial ACUITY: 3 weeks PAIN SCALE: 0/10 LOCATION: cranial TECHNIQUE: Multiple contiguous axial images were obtained of the head. Using automated exposure control and adjustment of the mA and/or kV according to patient size, radiation dose was kept as low as reasonably achievable to obtain optimal diagnostic quality images. FINDINGS: CEREBRUM: The ventricles are normal for age. No evidence of midline shift, mass lesion, hemorrha ge or acute infarction. No extra-axial fluid collections are seen. POSTERIOR FOSSA: The cerebellum and brainstem are intact. The 4th ventricle is midline. The cer ebellopontine angle is unremarkable. EXTRACRANIAL: The visualized portion of the orbits is intact. SKULL: The calvaria is intact. No evidence of skull fracture. CONCLUSION: Negative for acute process. Avtar Freed MD FACR on November 20, 2016 at 10:34 Board Certified Radiologist. This report was verified electronically.
[2016-11-20 10:41] LABS: APTT (PATIENT) 24.7 SEC (24.3-30.1); PROTHROMBIN TIME - PATIENT 11.1 SEC (9.8-11.6)
[2016-11-20] MEDS ORDERED: CYCL1TAB29 PO (11:27)
[2016-11-20 11:41] VITALS: BP 139/81; PULSE 84; RESP 16; O2SAT 100
[2016-11-20] MEDS ORDERED: CYCLOBENZAPRINE HCL 10 MG TAB PO ONE (11:45)
--- NOTE | 2016-11-20 14:19 | EKG ---
Date Performed: 11/20/2016 Time Performed: 09:45:24 PTAGE: 81 years EKG: Sinus rhythm Nonspecific ST-T wave changes COMPARED TO PRIOR ELECTROCARDIOGRAM, ST-T wave changes are present. PREVIOUS TRACING : 08/17/2016 05.48 DOCTOR: Mason Mckenzie Interpretating Date/Time 11/20/2016 14:18:44
== END 2016-11-20 11:57 | disposition home or self-care (01) ==
LOC: PHED 09:21
DX: M62.838 Other muscle spasm (principal); E78.00 Pure hypercholesterolemia, unspecified; I25.10 Atherosclerotic heart disease of native coronary artery without angina pectoris; K21.9 Gastro-esophageal reflux disease without esophagitis; I10 Essential (primary) hypertension; I25.2 Old myocardial infarction; G81.90 Hemiplegia, unspecified affecting unspecified side
CPT/HCPCS: 70450; 80053; 85025; 85610; 85730; 93005; 99285

== ENCOUNTER 2016-11-22 13:41 | Inpatient (IN) | payer MEDICARE ==
[~2016-11-22] VITALS: Ht 177.8 cm; Wt 91.9 kg
[~2016-11-22 13:41] MED LIST changes: +CYCL1TAB29 PO; +PRIM250 PO; +TIMO1SOL6 EACH EYE
[2016-11-22 13:57] VITALS: BP 187/93; PULSE 104; RESP 16; TEMP 98.8; O2SAT 97
[2016-11-22] MEDS ORDERED: SODIUM CHLORID 0.9% 500 ML INJ 500 ML IV ONE (14:00)
[2016-11-22] MEDS ORDERED: SODIUM CHLORIDE 0.9% FLUSH 10 ML FLUSH IVF PRN (14:00)
--- NOTE | 2016-11-22 14:47 | PD ---
HPI Chief Complaint: Fall Time Seen by Provider: 13:47 Travel History International Travel<30 days: No Contact w/Intl Traveler<30days: No Traveled to known affect area: No History of Present Illness HPI 81-year-old male came to the emergency room with history of fall last night at 8 PM. Patient was unable to get up from the floor after the fall. This morning his family found him and called EMS. As per EMS as they were pulling in they noticed that he started going into a generalized tonic-clonic seizure that started on his right upper extremity. Family did mention to the paramedics that he was seen at [facility] emergency room yesterday for his right arm "twitching". His blood sugar was high and he was eventually discharged. His blood sugar on route was 285 as per the paramedics. Currently patient is awake and talking. He has had previous stroke couple months ago. However no past history of seizures. He was tachycardic upon arrival. Patient is denying of some neck and upper back pain. He was put in a c-collar by the paramedics. [facility] Past Medical History Narrative Medical List of his past medical, surgical, social and family history as reviewed from the nursing note. Asthma: No Autoimmune Disease: No Blood Disorders: No Anxiety: Yes Depression: Yes (CURRENTLY ON XANAX) Heart Rhythm Problems: No Cancer: No Cardiovascular Problems: Yes (TRIPLE CARDIAC BYPASS 15 YRS, STENTS) High Cholesterol: Yes Chest Pain: No Congestive Heart Failure: No COPD: No Cerebrovascular Accident: Yes (RIGHT SIDED DEFICETS AND BLURRED VISION) Coronary Artery Disease: Yes Diabetes: No Diminished Hearing: No Endocrine: No Gastrointestinal Disorders: Yes (CHRONIC CONSTIPATION, TAKES PROTONICS) GERD: Yes Glaucoma: Yes Genitourinary: No Hepatitis: No Hiatal Hernia: No Hypertension: Yes Immune Disorder: No Kidney Stones: No Musculoskeletal: Yes (LEFT HUMERUS FX, RIGHT WRIST FX) Neurologic: Yes (TREMORS) Psychiatric: Yes Reproductive: No Respiratory: No Immunizations Current: Yes Migraines: No Myocardial Infarction: Yes (1986) Renal Failure: No Seizures: Yes Sickle Cell Disease: No Sleep Apnea: No Thyroid Disease: Yes Ulcer: No ?: Not Past Surgical History Abdominal Surgery: Yes (APPY AROUND 1957) Appendectomy: Yes Arteriovenous Shunt: No Cardiac Surgery: Yes (TRIPLE BYPASS 1995) Coronary Stent: Yes (2005) Ear Surgery: No Endocrine Surgery: No Eye Surgery: Yes (CATARACT BILAT) Genitourinary Surgery: No Gynecologic Surgery: No Insulin Pump: No Joint Replacement: Yes (RIGHT KNEE REPLACEMENT) Oral Surgery: No Pacemaker: No Thoracic Surgery: No Other Surgery: Yes Social History Alcohol Use: No Tobacco Use: No (QUIT 1974) Substance Use: No Allergies-Medications (Allergen,Severity, Reaction): Coded Allergies: No Known Allergies (Verified , 11/22/16) Comments No known drug allergies. Reported Meds & Prescriptions Reported Meds & Active Scripts Active Flexeril (Cyclobenzaprine HCl) 10 Mg Tab 10 Mg PO TID Clopidogrel (Clopidogrel Bisulfate) 75 Mg Tab 75 Mg PO DAILY Walker/Adult/Folding (Device) 1 Mis Mis 1 Ea .ROUTE DIRECTED Reported Betimol Opth Drops (Timolol Opth Drops) 0.25 % Soln 1 Drop EACH EYE BID Mysoline (Primidone) 250 Mg Tab 250 Mg PO TID Pantoprazole (Pantoprazole Sodium) 40 Mg Tab 40 Mg PO DAILY Minocycline (Minocycline HCl) 50 Mg Cap 50 Mg PO BID Metoprolol Tartrate 50 Mg Tab 50 Mg PO BID Isosorbide Mononitrate ER (Isosorbide Mononitrate) 30 Mg Jackeline 30 Mg PO DAILY Lasix (Furosemide) 20 Mg Tab 20 Mg PO DAILY Alphagan P Opth Drops (Brimonidine Tartrate) 0.1% Soln 1 Drop EACH EYE Q8HR Atorvastatin (Atorvastatin Calcium) 40 Mg Tab 40 Mg PO HS Aspirin Low Dose (Aspirin) 81 Mg Chew 81 Mg CHEW DAILY Alprazolam 0.5 Mg Tab 0.5 Mg PO Q8H PRN Narrative Medication List of his home medications reviewed from the nursing note. Review of Systems Except as stated in HPI: all other systems reviewed are Neg Physical Exam Narrative GENERAL: Awake, alert, elderly, moderate distress, disheveled SKIN: Focused skin assessment warm/dry. HEAD: Atraumatic. Normocephalic. EYES: Pupils equal and round. No scleral icterus. No injection or drainage. ENT: No nasal bleeding or discharge. Mucous membranes pink and moist. NECK: Trachea midline. No JVD. C-collar on CARDIOVASCULAR: Regular rate and rhythm. No murmur appreciated. RESPIRATORY: No accessory muscle use. Clear to auscultation. Breath sounds equal bilaterally. GASTROINTESTINAL: Abdomen soft, non-tender, nondistended. Hepatic and splenic margins not palpable. MUSCULOSKELETAL: No obvious deformities. No clubbing. No cyanosis. No edema. Tender over T4-T5 NEUROLOGICAL: Awake and alert. No obvious cranial nerve deficits. Motor grossly within normal limits. Normal speech. PSYCHIATRIC: Appropriate mood and affect; insight and judgment normal. Data Data Last Documented VS Vital Signs Date Time Temp Pulse Resp B/P Pulse Ox O2 Delivery O2 Flow Rate FiO2 11/22/16 17:00 90 20 182/84 97 Room Air 11/22/16 13:57 98.8 Orders Electrocardiogram (11/22/16 13:47) Prothrombin Time / Inr (Pt) (11/22/16 13:47) Complete Blood Count With Diff (11/22/16 13:47) Comprehensive Metabolic Panel (11/22/16 13:47) Creatine Kinase (Cpk) (11/22/16 13:47) Troponin I (11/22/16 13:47) Urinalysis - C+S If Indicated (11/22/16 13:47) Ct Brain W/O Iv Contrast(Rout) (11/22/16 13:47) Chest, Single Ap (11/22/16 13:47) Ecg Monitoring (11/22/16 13:47) Iv Access Insert/Monitor (11/22/16 13:47) Oximetry (11/22/16 13:47) Sodium Chloride 0.9% Flush (Ns Flush) (11/22/16 14:00) Sodium Chlorid 0.9% 500 Ml Inj (Ns 500 M (11/22/16 14:00) Ct Cerv Spine W/O Contrast (11/22/16 ) Ct Thor Spine W/O Contrast (11/22/16 ) Ct Lumb Spine W/O Contrast (11/22/16 ) Lorazepam Inj (Ativan Inj) (11/22/16 16:19) Levetiracetam 1000 Mg Inj (Keppra 1000 M (11/22/16 17:00) Admit Order (Ed Use Only) (11/22/16 17:10) CKMB (11/22/16 17:25) CKMB% (11/22/16 17:25) Labs Laboratory Tests Test 11/22/16 14:00 Prothrombin Time 11.4 SEC Prothromb Time International 1.0 RATIO Ratio MDM Medical Decision Making Medical Screen Exam Complete: Yes Emergency Medical Condition: Yes Medical Record Reviewed: Yes Interpretation(s) Twelve-lead EKG was reviewed by me. Normal sinus rhythm, normal axis, lateral T wave inversions, tachycardia. Heart rate of 107 bpm. Differential Diagnosis Rhabdomyolysis, thoracic spine fracture, cervical spine fracture, electrolyte abnormality, intracranial bleed Narrative Course 2:47 PM awaiting for the CAT scan's to be done and resulted. Awaiting for the blood test results. 4:56 PM awaiting for the blood test results. I was told by the nurse that patient had another episode of seizure where she had given 0.5 mg of IV Ativan. I was in a code at that point. CT head is within normal limit. I started him on a gram of Keppra. Patient has multiple rib fractures. No history of pneumothorax. However given his history and the new onset recurrent seizures I would prefer to admit him to the ICU. Awaiting for the mounter automatic to call back. He was also loaded with 1 g of Keppra. Critical Care Narrative Aggregate critical care time was 45 minutes. Time to perform other separately billable procedures was not included in the critical care time. My time did not include minutes spent treating any other patients simultaneously or on activities that did not directly contribute to the patient's treatment. The services I provided to this patient were to treat and/or prevent clinically significant deterioration that could result in: New-onset multiple seizures, altered mental status I provided critical care services requiring my management, as noted below: Chart data review, documentation time, medication orders and management, vital sign assessments/reviewing monitor data, ordering and reviewing lab tests, ordering and interpreting/reviewing x-rays and diagnostic studies, care of the patient and discussion of the patient with the admitting physicians. Procedures EKG Prior to Arrival: Yes Diagnosis Primary Impression: Altered mental status Qualified Code: R41.0 - Disorientation Additional Impressions: New onset seizure Hyperglycemia Metabolic acidosis Admitting Information Admitting Physician Requests: Mireille Alfonso MD Nov 22, 2016 14:47
[2016-11-22 15:12] LABS: PROTHROMBIN TIME - PATIENT 11.4 SEC (9.8-11.6)
--- NOTE | 2016-11-22 15:25 | RADRPT ---
EXAM DATE/TIME: 11/22/2016 15:02 [facility] COMPARISON: CT BRAIN W/O CONTRAST, November 20, 2016, 10:11. INDICATIONS : Trauma, fall. Seizures. RADIATION DOSE: 67.19 CTDIvol (mGy) MEDICAL HISTORY : Seizures. Cardiovascular disease Cerebrovascular disease. SURGICAL HISTORY : None. ENCOUNTER: Initial ACUITY: 1 day PAIN SCALE: 0/10 LOCATION: cranial TECHNIQUE: Multiple contiguous axial images were obtained of the head. Using automated exposure control and adj ustment of the mA and/or kV according to patient size, radiation dose was kept as low as reasonably a chievable to obtain optimal diagnostic quality images. FINDINGS: CEREBRUM: Mild cerebral atrophy is noted. No evidence of midline shift, mass lesion, hemorrhage or acute infarc tion. No extra-axial fluid collections are seen. Mild periventricular and subcortical white matter s mall vessel ischemic changes are noted bilaterally. POSTERIOR FOSSA: The cerebellum and brainstem are intact. The 4th ventricle is midline. The cerebellopontine angle i s unremarkable. EXTRACRANIAL: The visualized portion of the orbits is intact. SKULL: The calvaria is intact. No evidence of skull fracture. CONCLUSION: 1. Mild cerebral atrophy and periventricular/subcortical white matter small vessel ischemic changes b ilaterally. 2. No acute infarct, acute hemorrhage, mass effect or extra-axial fluid collections. Rojelio Smith MD on November 22, 2016 at 15:22 Board Certified Radiologist. This report was verified electronically.
--- NOTE | 2016-11-22 15:56 | RADRPT ---
EXAM DATE/TIME: 11/22/2016 14:35 CORRECTION Corrected on: November 22, 2016; [facility] COMPARISON: CHEST SINGLE AP, August 17, 2016, 5:46. INDICATIONS : Shortness of breath. MEDICAL HISTORY : Hypertension. Cardiovascular disease. SURGICAL HISTORY : Coronary artery stent. CABG. ENCOUNTER: Initial ACUITY: 1 day PAIN SCORE: 0/10 LOCATION: Bilateral chest FINDINGS: Post surgical features of prior median sternotomy. Low lung volumes with bibasilar airspace disease, likely atelectasis. Multiple right-sided minimally displaced posterior rib fractures involving the fi fth sixth and seventh ribs. No pneumothorax. Cardiomediastinal contours are stable. Remainder of exam is unchanged. CONCLUSION: 1. Multiple minimally displaced right-sided rib fractures without pneumothorax. Royal Martinez MD on November 22, 2016 at 16:38 Board Certified Radiologist. This report was verified electronically.
--- NOTE | 2016-11-22 16:06 | RADRPT ---
EXAM DATE/TIME: 11/22/2016 15:04 [facility] COMPARISON: No previous studies available for comparison. INDICATIONS : Seizures, fall. RADIATION DOSE: 42.04 CTDIvol (mGy) MEDICAL HISTORY : Seizures. Cardiovascular disease Cerebrovascular disease. SURGICAL HISTORY : None. ENCOUNTER: Initial ACUITY: 1 day PAIN SCALE: 0/10 LOCATION: Neck TECHNIQUE: Volumetric scanning of the cervical spine was performed. Multiplanar reconstructions i n the sagittal, coronal and oblique axial planes were performed. Using automated exposure control a nd adjustment of the mA and/or kV according to patient size, radiation dose was kept as low as reason ably achievable to obtain optimal diagnostic quality images. FINDINGS: There are degenerative changes present in the cervical spine. There is some ossificati on in the posterior spinous ligaments. C1 and C2 are intact. C2-C3: The bony spinal canal is normal in size. No evidence of disc bulge or herniation. The neura l foramina are bilaterally patent. C3-C4: There is uncinate ridging present with moderate bilateral neural foraminal encroachment. C4-C5: There is uncinate ridging present with moderate left-sided neural foraminal encroachment. C5-C6: The bony spinal canal is normal in size. No evidence of disc bulge or herniation. The neura l foramina are bilaterally patent. C6-C7: The bony spinal canal is normal in size. No evidence of disc bulge or herniation. The neura l foramina are bilaterally patent. C7-T1: The bony spinal canal is normal in size. No evidence of disc bulge or herniation. The neura l foramina are bilaterally patent. CONCLUSION: Degenerative changes, otherwise negative. Avtar Freed MD FACR on November 22, 2016 at 15:57 Board Certified Radiologist. This report was verified electronically.
[2016-11-22] MEDS ORDERED: LORazepam 2 MG/ML VIAL ONE (16:19)
--- NOTE | 2016-11-22 16:38 | RADRPT ---
EXAM DATE/TIME: 11/22/2016 15:09 [facility] COMPARISON: CT CERVICAL SPINE W/O CONTRAST, November 22, 2016, 15:04. INDICATIONS : Evaluate for fall due to seizures. RADIATION DOSE: CTDIvol (mGy) ; Reconstructed from previous dataset MEDICAL HISTORY : Seizures. Cardiovascular disease SURGICAL HISTORY : Appendectomy. Total knee replacement, right.[place] bypass ENCOUNTER: Initial ACUITY: 1 day PAIN SCALE: 3/10 LOCATION: Bilateral lower back. TECHNIQUE: Volumetric scanning of the lumbar spine was performed. Multiplanar reconstructions in the sagittal, coronal and oblique axial planes were performed. Using automated exposure control and adjustment of the mA and/or kV according to patient size, radiation dose was kept as low as reasonably achievable t o obtain optimal diagnostic quality images. FINDINGS: VERTEBRAE: Normal vertebral body height. ALIGNMENT: No evidence of subluxation. T12-L1: The thecal sac has a normal diameter. No evidence of disc bulge or protrusion. The neural foramina are patent bilaterally. L1-L2: The thecal sac has a normal diameter. No evidence of disc bulge or protrusion. The neural foramina are patent bilaterally. L2-L3: There is a small broad-based disc bulge. The thecal space and neural foramina are adequate. There is mild facet arthritis bilaterally. L3-L4: There is a degenerated disc with a broad-based disc bulge. This effaces the ventral thecal sac. The r esidual thecal space is adequate. There is moderate facet arthritis bilaterally. L4-L5: There is a degenerated disc. There is broad-based disc bulge. There is moderate facet arthritis with degenerative facet ligamentous hypertrophy. These combine and result in moderate to severe spinal hoa nosis and bilateral foraminal narrowing at this level. L5-S1: There is a degenerated disc with a small broad-based disc bulge. There is mild facet arthritis bilate rally. The thecal space and foramina are adequate. The infrarenal aorta is at the upper limits of normal in size measuring 3 cm. CONCLUSION: 1. Moderate to severe spinal stenosis at L4-5. 2. There are degenerative changes throughout the remainder of the lumbar spine. 3. The infrarenal aorta is at the upper limits of normal in size at 3 cm. 4. No acute fracture identified. Urbano Freed MD on November 22, 2016 at 16:33 Board Certified Radiologist. This report was verified electronically.
--- NOTE | 2016-11-22 16:39 | RADRPT ---
EXAM DATE/TIME: 11/22/2016 15:09 [facility] COMPARISON: CHEST SINGLE AP, November 22, 2016, 14:35. INDICATIONS : Evaluate for mid back pain due to fall. RADIATION DOSE: CTDIvol (mGy) ; Reconstructed from previous dataset MEDICAL HISTORY : Seizures. Cardiovascular disease SURGICAL HISTORY : Appendectomy. Total knee replacement, right. ENCOUNTER: Initial ACUITY: 1 day PAIN SCALE: 3/10 LOCATION: Bilateral mid back region. TECHNIQUE: Volumetric scanning of the thoracic spine was performed. Multiplanar reconstructions in the sagittal , coronal and oblique axial planes were performed. Using automated exposure control and adjustment o f the mA and/or kV according to patient size, radiation dose was kept as low as reasonably achievable to obtain optimal diagnostic quality images. FINDINGS: There are multiple posterior right-sided mildly displaced rib fractures. These include the right post erior fifth, sixth, eighth, and ninth ribs. Vertebral body heights are maintained. The remaining visu alized osseous structures are intact without evidence for acute bony fracture. Sagittal alignment is maintained There is mild multilevel degenerative spondylosis most prominently at the T3-4, T4-5, and T8-9 with disc space loss and primarily anterior osteophyte formation. The bony central canal is jaimes nt. Mild dependent posterior lower lobe airspace disease and subtle hemothorax. CONCLUSION: 1. Mildly displaced posterior right fifth, sixth, eighth, and ninth rib fractures. No definitive pneu mothorax an individual is portions of lung. Very subtle right-sided hemothorax. 2. No evidence for vertebral compression fracture or subluxation. Royal Martinez MD on November 22, 2016 at 16:10 Board Certified Radiologist. This report was verified electronically.
[2016-11-22 17:00] VITALS: BP 182/84; PULSE 90; RESP 20; O2SAT 97
[2016-11-22] MEDS ORDERED: levETIRAcetam 1000 MG INJ 100 ML IV ONE (17:00)
[2016-11-22 18:07] LABS: AUTOMATED NEUTROPHIL # 8.6 TH/MM3 (1.8-7.7); BASOPHIL % 0.2 % (0.0-2.0); HEMATOCRIT 41.5 % (39.0-51.0); HEMO FLAGS DIFF FINAL; LYMPH % 4.9 % (9.0-44.0); LYMPHOCYTE # 0.5 TH/MM3 (1.0-4.8); MEAN CELL VOLUME 94.7 FL (80.0-100.0); MEAN CORPUSCULAR HEMOGLOBIN 31.2 PG (27.0-34.0); MONO % 8.6 % (0.0-8.0); NEUT % 86.3 % (16.0-70.0); PLATELET COUNT 125 TH/MM3 (150-450); RED BLOOD COUNT 4.38 MIL/MM3 (4.50-5.90); RED CELL DISTRIBUTION WIDTH 13.2 % (11.6-17.2)
[2016-11-22 18:27] LABS: ANION GAP 17 MEQ/L (5-15); AST (GOT) 33 U/L (15-37); BLOOD UREA NITROGEN 18 MG/DL (7-18); CHLORIDE 103 MEQ/L (98-107); GLOMERULAR FILTRATION RATE 43 ML/MIN (>89); POTASSIUM 4.5 MEQ/L (3.5-5.1); SODIUM (NA) 137 MEQ/L (136-145)
[2016-11-22 18:28] LABS: ALT (GPT) 32 U/L (12-78)
[2016-11-22 18:33] LABS: ALKALINE PHOSPHATASE 115 U/L (45-117); CREATINE KINASE 541 U/L (39-308); TOTAL BILIRUBIN ADULT 0.6 MG/DL (0.2-1.0)
[2016-11-22 18:39] VITALS: O2SAT 98
[2016-11-22 18:45] LABS: CKMB 8.3 NG/ML (0.5-3.6)
[2016-11-22 19:04] LABS: BLOOD, URINE SMALL (NEG); GLUCOSE,URINE 1000 mg/dL (NEG); KETONE, URINE 150 mg/dL (NEG); NITRITE,URINE NEG (NEG); PH, URINE 5.5 (5.0-8.5); URINE COLOR YELLOW (YELLW/STRAW)
[2016-11-22 19:05] VITALS: BP 162/77; PULSE 95; RESP 18; O2SAT 99
[2016-11-22 19:11] LABS: COMMENT (UR) CATH-CULT NOT IND; CULTURE IF INDICATED CATH CULTURE NOT IND
[2016-11-22] MEDS ORDERED: MISCELLANEOUS NURSING INFORMATION XX SCH (20:00)
[2016-11-22] MEDS ORDERED: LACTULOSE SYRUP 20 GM/30 ML CUP PO PRN (20:00)
[2016-11-22] MEDS ORDERED: SENNOSIDES 8.6 MG TAB PO PRN (20:00)
[2016-11-22] MEDS ORDERED: SODIUM CHLORIDE 0.9% FLUSH 10 ML FLUSH IV FLUSH PRN (20:00)
[2016-11-22] MEDS ORDERED: MAGNESIUM HYDROXIDE SUSP 30 ML CUP PO PRN (20:00)
[2016-11-22] MEDS ORDERED: CHLORHEXIDINE GLUCONATE 2 % 1 PACK (2 CLOTHS) TOP PRN (20:00)
--- NOTE | 2016-11-22 22:14 | HHI.HP ---
[facility] Service Critical Care Medicine Primary Care Physician Cayden Tavarez M.D. Admission Diagnosis new onset seizure, fall, dehydration Diagnosis: Travel History International Travel<30 Days: No Contact w/Intl Traveler <30 Da: No Traveled to Known Affected Are: No History of Present Illness 81-year-old male presents with history of fall last night at 8 PM. Patient was unable to get up from the floor after the fall. This morning his family found him and called EMS. As per EMS as they were pulling in they noticed that he started going into a generalized tonic-clonic seizure that started on his right upper extremity. Family did mention to the paramedics that he was seen at [facility] emergency room yesterday for his right arm "twitching". His blood sugar was high and he was eventually discharged. His blood sugar on route was 285 as per the paramedics. Currently patient is awake and talking. He has had previous stroke couple months ago. He was tachycardic upon arrival. Review of Systems Constitutional: DENIES: Diaphoretic episodes, Fatigue, Fever, Weight gain, Weight loss, Chills, Dizziness, Change in appetite, Night Sweats Endocrine: DENIES: Heat/cold intolerance, Polydipsia, Polyuria, Polyphagia Eyes: DENIES: Blurred vision, Diplopia, Eye inflammation, Eye pain, Vision loss , Photosensitivity, Double Vision Ears, nose, mouth, throat: DENIES: Tinnitus, Hearing loss, Vertigo, Nasal discharge, Oral lesions, Throat pain, Hoarseness, Ear Pain, Running Nose, Epistaxis, Sinus Pain, Toothache, Odynophagia Respiratory: DENIES: Apneas, Cough, Snoring, Wheezing, Hemoptysis, Sputum production, Shortness of breath Cardiovascular: DENIES: Chest pain, Palpitations, Syncope, Dyspnea on Exertion , PND, Lower Extremity Edema, Orthopnea, Claudication Gastrointestinal: DENIES: Abdominal pain, Black stools, Bloody stools, Constipation, Diarrhea, Nausea, Vomiting, Difficulty Swallowing, Anorexia Genitourinary: DENIES: Sexual dysfunction, Urinary frequency, Urinary incontinence, Urgency, Hematuria, Dysuria, Nocturia, Penile Discharge, Testicular Pain, Testicular Swelling Musculoskeletal: DENIES: Joint pain, Muscle aches, Stiffness, Joint Swelling, Back pain, Neck pain Integumentary: DENIES: Abnormal pigmentation, Nail changes, Pruritus, Rash Past Family Social History Allergies: Coded Allergies: No Known Allergies (Verified , 11/22/16) Past Medical History Familial essential tremor Glaucoma 9 prosthetic V Coronary artery disease status post CABG and 6 stents per patient Hypothyroidism Dyslipidemia GERD Hypertension Questionable history of prior CVA in March 2009 per chart review however patient denies ever having a stroke or CVA or TIA. Past Surgical History Coronary artery bypass graft 3 vessels in 1995 Multiple stents Appendectomy Right cataract surgery Left humerus fracture repair Reported Medications Reported Meds & Active Scripts Active Flexeril (Cyclobenzaprine HCl) 10 Mg Tab 10 Mg PO TID Clopidogrel (Clopidogrel Bisulfate) 75 Mg Tab 75 Mg PO DAILY Walker/Adult/Folding (Device) 1 Mis Mis 1 Ea .ROUTE DIRECTED Reported Betimol Opth Drops (Timolol Opth Drops) 0.25 % Soln 1 Drop EACH EYE BID Mysoline (Primidone) 250 Mg Tab 250 Mg PO TID Pantoprazole (Pantoprazole Sodium) 40 Mg Tab 40 Mg PO DAILY Minocycline (Minocycline HCl) 50 Mg Cap 50 Mg PO BID Metoprolol Tartrate 50 Mg Tab 50 Mg PO BID Isosorbide Mononitrate ER (Isosorbide Mononitrate) 30 Mg Jackeline 30 Mg PO DAILY Lasix (Furosemide) 20 Mg Tab 20 Mg PO DAILY Alphagan P Opth Drops (Brimonidine Tartrate) 0.1% Soln 1 Drop EACH EYE Q8HR Atorvastatin (Atorvastatin Calcium) 40 Mg Tab 40 Mg PO HS Aspirin Low Dose (Aspirin) 81 Mg Chew 81 Mg CHEW DAILY Alprazolam 0.5 Mg Tab 0.5 Mg PO Q8H PRN Active Ordered Medications Reported Meds & Active Scripts Active Flexeril (Cyclobenzaprine HCl) 10 Mg Tab 10 Mg PO TID Clopidogrel (Clopidogrel Bisulfate) 75 Mg Tab 75 Mg PO DAILY Walker/Adult/Folding (Device) 1 Mis Mis 1 Ea .ROUTE DIRECTED Reported Betimol Opth Drops (Timolol Opth Drops) 0.25 % Soln 1 Drop EACH EYE BID Mysoline (Primidone) 250 Mg Tab 250 Mg PO TID Pantoprazole (Pantoprazole Sodium) 40 Mg Tab 40 Mg PO DAILY Minocycline (Minocycline HCl) 50 Mg Cap 50 Mg PO BID Metoprolol Tartrate 50 Mg Tab 50 Mg PO BID Isosorbide Mononitrate ER (Isosorbide Mononitrate) 30 Mg Jackeline 30 Mg PO DAILY Lasix (Furosemide) 20 Mg Tab 20 Mg PO DAILY Alphagan P Opth Drops (Brimonidine Tartrate) 0.1% Soln 1 Drop EACH EYE Q8HR Atorvastatin (Atorvastatin Calcium) 40 Mg Tab 40 Mg PO HS Aspirin Low Dose (Aspirin) 81 Mg Chew 81 Mg CHEW DAILY Alprazolam 0.5 Mg Tab 0.5 Mg PO Q8H PRN Family History Noncontributory Social History Negative for tobacco alcohol or illicit drug abuse Physical Exam Vital Signs Vital Signs Date Time Temp Pulse Resp B/P Pulse Ox O2 Delivery O2 Flow Rate FiO2 11/22/16 19:05 95 18 162/77 99 Room Air 11/22/16 18:39 98 Room Air 11/22/16 17:00 90 20 182/84 97 Room Air 11/22/16 14:03 104 20 97 Room Air 11/22/16 13:57 98.8 104 16 187/93 97 Physical Exam GENERAL: Well-nourished, well-developed patient. SKIN: Warm and dry. HEAD: Normocephalic. EYES: No scleral icterus. No injection or drainage. NECK: Supple, trachea midline. No JVD or lymphadenopathy. CARDIOVASCULAR: Regular rate and rhythm without murmurs, gallops, or rubs. RESPIRATORY: Breath sounds equal bilaterally. No accessory muscle use. GASTROINTESTINAL: Abdomen soft, non-tender, nondistended. MUSCULOSKELETAL: No cyanosis, or edema. BACK: Nontender without obvious deformity. No CVA tenderness. EXTREMITIES: No clubbing, cyanosis Laboratory Laboratory Tests Test 11/22/16 11/22/16 11/22/16 11/22/16 14:00 17:25 17:26 18:00 Prothrombin Time 11.4 Prothromb Time International 1.0 Ratio Sodium Level 137 Potassium Level 4.5 Chloride Level 103 Carbon Dioxide Level 17.0 Anion Gap 17 Blood Urea Nitrogen 18 Creatinine 1.58 Estimat Glomerular Filtration 43 Rate Random Glucose 321 Calcium Level 8.8 Total Bilirubin 0.6 Aspartate Amino Transf 33 (AST/SGOT) Alanine Aminotransferase 32 (ALT/SGPT) Alkaline Phosphatase 115 Total Creatine Kinase 541 Creatine Kinase MB 8.3 Creatine Kinase MB % 1.5 Troponin I 0.04 Total Protein 7.6 Albumin 3.5 White Blood Count 10.0 Red Blood Count 4.38 Hemoglobin 13.7 Hematocrit 41.5 Mean Corpuscular Volume 94.7 Mean Corpuscular Hemoglobin 31.2 Mean Corpuscular Hemoglobin 33.0 Concent Red Cell Distribution Width 13.2 Platelet Count 125 Mean Platelet Volume 10.0 Neutrophils (%) (Auto) 86.3 Lymphocytes (%) (Auto) 4.9 Monocytes (%) (Auto) 8.6 Eosinophils (%) (Auto) 0.0 Basophils (%) (Auto) 0.2 Neutrophils # (Auto) 8.6 Lymphocytes # (Auto) 0.5 Monocytes # (Auto) 0.9 Eosinophils # (Auto) 0.0 Basophils # (Auto) 0.0 CBC Comment DIFF FINAL Differential Comment Urine Color YELLOW Urine Turbidity CLEAR Urine pH 5.5 Urine Specific [place] 1.030 Urine Protein 30 Urine Glucose (UA) 1000 Urine Ketones 150 Urine Occult Blood SMALL Urine Nitrite NEG Urine Bilirubin NEG Urine Urobilinogen LESS THAN 2.0 Urine Leukocyte Esterase NEG Urine RBC 1 Urine WBC LESS THAN 1 Urine Amorphous Sediment RARE Microscopic Urinalysis Comment CATH-CULT NOT IND Result Diagram: 11/22/16 1726 11/22/16 1725 Assessment and Plan Assessment and Plan Seizure disorder - Most likely due to old stroke - She - Neurology, - MRI Coronary artery disease - status post CABG and 6 stents - No acute event - Supportive care - Aspirin Plavix statin beta john Hypothyroidism - Levothyroxine Dyslipidemia - Atorvastatin GERD - Pantoprazole Hypertension - Metoprolol - Isosorbide DVT GI prophylaxis - Teds SCDs subcutaneous heparin and, pantoprazole Critical Care: The total critical care time was 35 minutes. Time to perform other separately billable procedures was not included in the critical care time. Jong Lockett MD Nov 22, 2016 22:14
[2016-11-22 23:00] VITALS: BP 136/73; PULSE 98; RESP 24; TEMP 98.9; O2SAT 91
[2016-11-22] MEDS: METOPROLOL TARTRATE 50 MG TAB PO SCH (23:01)
[2016-11-22] MEDS: ATORVASTATIN 40 MG TAB PO SCH (23:01)
[2016-11-22] MEDS: DOCUSATE SODIUM 50 MG/SENNA 8.6 MG TAB PO SCH (23:01)
[2016-11-22] MEDS: ALPRAZolam 0.5 MG TAB PO PRN (23:01)
[2016-11-22] MEDS: SODIUM CHLORIDE 0.9% FLUSH 10 ML FLUSH IV FLUSH SCH (23:02)
[2016-11-22] MEDS: TIMOLOL MALEATE 0.25% OPHT SOLN 5 ML BTL EACH EYE SCH (23:30)
[2016-11-22] MEDS: BRIMONIDINE TARTRATE 0.15% OPHT SOLN 5 ML BTL EACH EYE SCH (23:30)
[2016-11-22] MEDS: CHLORHEXIDINE GLUCONATE 2 % 1 PACK (2 CLOTHS) TOP SCH (23:31)
[2016-11-22] MEDS: MINOCYCLINE HCL 50 MG CAP PO SCH (23:31)
[2016-11-23] VITALS (23 sets, daily range): BP systolic 98–149; BP diastolic 53–72; PULSE 70–98; RESP 20–27; TEMP 98.2–99.1; O2SAT 94–100
[2016-11-23] MEDS: PANTOPRAZOLE SOD 40 MG DELAYED RELEASE TAB PO SCH (05:07)
[2016-11-23] MEDS: BRIMONIDINE TARTRATE 0.15% OPHT SOLN 5 ML BTL EACH EYE SCH ×3 (05:07→20:51)
[2016-11-23] MEDS: CYCLOBENZAPRINE HCL 10 MG TAB PO SCH ×3 (08:03→18:00)
[2016-11-23] MEDS: CLOPIDOGREL 75 MG TAB PO SCH (08:03)
[2016-11-23] MEDS: MINOCYCLINE HCL 50 MG CAP PO SCH ×2 (08:03→20:50)
[2016-11-23] MEDS: ISOSORBIDE MONONITRATE 30 MG TAB PO SCH (08:03)
[2016-11-23] MEDS: PRIMIDONE 250 MG TAB PO SCH ×3 (08:03→18:00)
[2016-11-23] MEDS: DOCUSATE SODIUM 50 MG/SENNA 8.6 MG TAB PO SCH ×2 (08:03→20:50)
[2016-11-23] MEDS: METOPROLOL TARTRATE 50 MG TAB PO SCH ×2 (08:04→20:50)
[2016-11-23] MEDS: ALPRAZolam 0.5 MG TAB PO PRN (08:04)
[2016-11-23] MEDS: ASPIRIN 81 MG CHEW TAB CHEW SCH (08:04)
[2016-11-23] MEDS: TIMOLOL MALEATE 0.25% OPHT SOLN 5 ML BTL EACH EYE SCH ×2 (08:05→21:03)
[2016-11-23] MEDS: SODIUM CHLORIDE 0.9% FLUSH 10 ML FLUSH IV FLUSH SCH ×2 (08:05→20:51)
[2016-11-23] MEDS ORDERED: GLUCAGON 1 MG/ML VIAL IM PRN (08:45)
[2016-11-23] MEDS ORDERED: GLUCAGON 1 MG/ML VIAL OTHER PRN (08:45)
[2016-11-23] MEDS ORDERED: DEXTROSE 50% IN WATER 50 ML VIAL(D50) IV PRN (08:45)
--- NOTE | 2016-11-23 09:46 | HHI.CCPN ---
Subjective Remarks/Hospital Course 81-year-old male presents with history of fall last night at 8 PM. Patient was unable to get up from the floor after the fall. This morning his family found him and called EMS. As per EMS as they were pulling in they noticed that he started going into a generalized tonic-clonic seizure that started on his right upper extremity. Family did mention to the paramedics that he was seen at [place] emergency room yesterday for his right arm "twitching". His blood sugar was high and he was eventually discharged. His blood sugar on route was 285 as per the paramedics. Currently patient is awake and talking. He has had previous stroke couple months ago. He was tachycardic upon arrival. Subjective: 11/23: No seizure activity overnight. The patient is noted to be hyperglycemic , moderate dose sliding scale insulin instituted. Patient tolerating diet with difficulty secondary to not having his dentures will change to mechanical soft diet. Patient's pain scale described as 6/10 secondary to rib fractures. Incentive spirometry planned while awake. Objective Vital Signs Date Time Temp Pulse Resp B/P Pulse Ox O2 Delivery O2 Flow Rate FiO2 11/23/16 07:57 99.1 11/23/16 06:00 70 11/23/16 04:00 20 141/67 99 11/22/16 19:05 Room Air Result Diagram: 11/22/16 1726 11/22/16 1725 Objective Remarks GENERAL: Well-nourished, well-developed patient. SKIN: Warm and dry. HEAD: Normocephalic. EYES: No scleral icterus. No injection or drainage. NECK: Supple, trachea midline. No JVD or lymphadenopathy. CARDIOVASCULAR: Regular rate and rhythm without murmurs, gallops, or rubs. RESPIRATORY: Breath sounds equal bilaterally. No accessory muscle use. GASTROINTESTINAL: Abdomen soft, non-tender, nondistended. MUSCULOSKELETAL: No cyanosis, or edema. BACK: Nontender without obvious deformity. No CVA tenderness. Tenderness noted left posterior region, in the area rib fractures. EXTREMITIES: No clubbing, cyanosis Urinary Catheter: Yes [place] insert reason: Measure Accurate Output Date of Insertion: Nov 22, 2016 A/P Assessment and Plan Seizure disorder - Most likely due to old stroke - Keppra x 1 dose - Neurology consulted, follow-up recommendations - [id number] result - CT brain acute infarct mild cerebral atrophy Coronary artery disease - status post CABG and 6 stents - No acute event - Supportive care - Continue Aspirin, Plavix, atorvastatin and beta john Hypothyroidism - Levothyroxine continue Dyslipidemia - Atorvastatin GERD - Pantoprazole Hypertension - Metoprolol - Isosorbide DVT GI prophylaxis - Teds SCDs subcutaneous heparin and, pantoprazole Critical Care: Level 3 Discussed with SOLE MOLDER and patient at bedside. Physician Elise Brambila MD Nov 23, 2016 09:46
[2016-11-23] MEDS ORDERED: INSULIN NovoLIN REGULAR SUPPLEMENTAL SCALE SQ SCH ×2 (11:00)
[2016-11-23 11:50] LABS: CREATINE KINASE 272 U/L (39-308)
--- NOTE | 2016-11-23 13:32 | EKG ---
Date Performed: 11/22/2016 Time Performed: 14:10:40 PTAGE: 81 years EKG: SINUS TACHYCARDIA ST DEVIATION AND MODERATE T-WAVE ABNORMALITY, CONSIDER ANTEROLATERAL ISCH EMIA ABNORMAL ECG PREVIOUS TRACING : 11/20/2016 09.45 COMPARED TO PREVIOUS EKG SINUS TACHYCARDIA IS NEW DOCTOR: Ravin Knox Interpretating Date/Time 11/23/2016 13:30:17
--- NOTE | 2016-11-23 16:07 | MB ---
cc: KRISHNA RUSHING M.D. DATE OF CONSULTATION: 11/23/2016. REASON FOR CONSULTATION: Possible seizure. HISTORY OF PRESENT ILLNESS: The patient is a pleasant 81-year-old man who has a history of what looks like a left pontine stroke back in August who comes in to the hospital for what is described as flailing and twitching of the right arm. His daughter tried stopping the arm and the muscles become very tight and spastic. He was seen in [place] as well for the same issue and found to have at that point a high glucose level. En route here, he was 285 glucose-carbajal. The patient states that he is awake during these events and his arms just start shaking and moving and flailing and he cannot stop it. It does not occur in the legs. He has no loss of awareness as far as we can tell. He has fallen and that is how his daughter found him one time. PAST MEDICAL HISTORY: He has a significant history of: 1. Stroke as stated. 2. bypass surgery with six stents 15 years ago. 3. Essential tremor. 4. Glaucoma. 5. Hypothyroidism. 6. Hyperlipidemia. 7. Reflux. 8. Hypertension. 9. Stents. 10. Cataract surgery. MEDICATIONS: His medicines at home are: 1. Primidone 250 milligrams three times a day. 2. Flexeril was given in the emergency department. 3. Plavix 75 milligrams a day. 4. Timolol. 5. Pantoprazole. 6. Minocycline. 7. Metoprolol. 8. Imdur. 9. Lasix. 10. Alphagan. 11. Atorvastatin. 12. A baby aspirin. 13. Alprazolam PRN. SOCIAL HISTORY: Quit smoking in 1974. Lives alone. No tobacco. No substance abuse. PHYSICAL EXAMINATION: VITAL SIGNS: Temperature 99.1, pulse 70, respiratory rate 20, blood pressure 141/67. NECK: His neck is supple. No bruits. HEART: Regular. NEUROLOGICAL EXAMINATION: He is awake, alert. He is oriented. His speech is normal. Pupils reactive. Face symmetrical. Tongue is midline. Motor-carbajal, he does exhibit contractures of the fifth digits bilaterally. There maybe somewhat of a Dupuytren's contracture on the right. He does not complain of any pain in the antecubital region. His tone is otherwise normal at the elbows and wrists. There is no cogwheeling. No rigidity. No spasticity. He does not exhibit a drift or leg lag but on [id number], there is some mild incoordination but not an essential type tremor. Left ofikqc-orsc-huwhfi is normal. Gait is withheld at this time. DTRs are 1+. LABORATORY DATA: His CBC is reviewed. His platelet count is 125,000. Coagulation panel is normal. Chemistries: BUN 18 yesterday. Creatinine 1.58. GFR 43. Glucose 309 today. CK 541 down to 272. CK 2 is 8.3. Percentage 1.5. Urinalysis with 1000 glucose, 150 ketones, small blood, 30 protein. IMAGING STUDIES: Chest x-ray: Multiple displays of right-sided rib fractures without pneumothorax minimally displaced. CT head shows mild cerebral atrophy, white matter changes, no acute infarct. Did go back to his MRI from August of 2016 that shows a left pontine DWI abnormality subacute infarct. His MRA was unremarkable. His carotid ultrasound at the same time showed minimal plaquing. His 2-D echocardiogram at that time shows an ejection fraction of 50% to 55%, grade 1 diastolic dysfunction, trace aortic regurgitation and mild pulmonic valve regurgitation. IMPRESSION: 81-year-old man with what sounds like a seizure-like event likely due to his stroke. He already is on high-dose Mysoline, which is also an antiepileptic. Keppra was started. We can certainly continue it at 500 milligrams twice a day. I will get an MRI and an EEG. Maintain seizure precautions. His sugar is probably elevated as he states he has been drinking three Boost daily for increasing his muscle mass and I think that maybe a consult to dietary with a taping foreman if possible should be initiated. Continue his other medications, his aspirin and Plavix and will make further recommendations accordingly. MD JESUS Cortes/JADA /1:29 PM /3:51 PM
--- NOTE | 2016-11-23 16:15 | RADRPT ---
EXAM DATE/TIME: 11/23/2016 15:07 [facility] COMPARISON: CT BRAIN W/O CONTRAST, November 22, 2016, 15:02. MRI BRAIN W/O CONTRAST, August 18, 2016, 8:37. INDICATIONS : Seizures. MEDICAL HISTORY : Cardiovascular disease Hypertension. SURGICAL HISTORY : CABG Coronary artery stent. ENCOUNTER: Initial ACUITY: 1 day PAIN SCORE: 0/10 LOCATION: cranial TECHNIQUE: Multiplanar, multisequence MRI of the brain was performed without contrast. FINDINGS: CEREBRUM: The ventricles are normal for age. No evidence of midline shift, mass lesion, hemorrhage or acute in farction. No extraaxial fluid collections are seen. The pituitary gland and suprasellar cistern are normal in configuration. Scattered small foci of old hemosiderin deposition seen, especially the sub cortical regions of the right parietal, temporal and occipital lobes. WHITE MATTER: Mild chronic flair signal abnormality seen in the periventricular white matter of both cerebral hemis pheres. POSTERIOR FOSSA: The cerebellum and brainstem are intact. The 4th ventricle is midline. The cerebellopontine angle is unremarkable. The cerebellar tonsils are normal in position. DIFFUSION IMAGING: No focal areas of restricted diffusion are seen. No evidence of acute infarction. EXTRACRANIAL: The visualized portions of the orbits and paranasal sinuses are unremarkable. CONCLUSION: 1. No acute infarct or other acute intracranial abnormality. 2. Chronic white matter changes. 3. Numerous small scattered foci of old hemosiderin deposition as above, could be related to remote t rauma or chronic microvascular hemorrhage. Harley Greene MD on November 23, 2016 at 16:08 Board Certified Radiologist. This report was verified electronically.
[2016-11-23] MEDS ORDERED: INSULIN REGULAR (IV INFUSION) 100 UNITS in SODIUM CHLORIDE 0.9% INJ 99 ML IV SCH (18:00)
[2016-11-23] MEDS: ACETAMINOPHEN 1000 MG/100 ML VIAL IV SCH (18:00)
[2016-11-23] MEDS ORDERED: MISC INFORMATION OTHER ONE (18:00)
[2016-11-23] MEDS ORDERED: DEXTROSE 50% IN WATER 50 ML VIAL(D50) IV PUSH PRN (18:00)
[2016-11-23] MEDS: levETIRAcetam 500 MG TAB PO SCH (20:50)
[2016-11-23] MEDS: ATORVASTATIN 40 MG TAB PO SCH (20:50)
[2016-11-24] VITALS (16 sets, daily range): BP systolic 103–150; BP diastolic 58–79; PULSE 62–92; RESP 14–27; TEMP 98.2–98.7; O2SAT 93–100
[2016-11-24] MEDS: ACETAMINOPHEN 1000 MG/100 ML VIAL IV SCH ×5 (02:19→23:32)
[2016-11-24] MEDS: SODIUM CHLOR 0.9% 1000 ML INJ 1,000 ML IV SCH ×4 (03:41→20:49)
[2016-11-24] MEDS ORDERED: SODIUM CHLOR 0.9% 1000 ML INJ 1,000 ML IV SCH (03:41)
[2016-11-24] MEDS ORDERED: CHLORHEXIDINE GLUCONATE 2 % 1 PACK (2 CLOTHS) TOP PRN (03:45)
[2016-11-24] MEDS ORDERED: MISCELLANEOUS NURSING INFORMATION XX SCH (03:45)
[2016-11-24] MEDS ORDERED: SODIUM PHOSPHATE INJ 15 MMOL in SODIUM CHLORIDE 0.9% INJ 100 ML IV PRN (03:45)
[2016-11-24] MEDS ORDERED: INSULIN REGULAR (IV INFUSION) 100 UNITS in SODIUM CHLORIDE 0.9% INJ 99 ML IV SCH (03:45)
[2016-11-24] MEDS ORDERED: POTASSIUM CHLOR 40 MEQ PREMIX 100 ML IV PRN ×2 (03:45)
[2016-11-24] MEDS ORDERED: SODIUM BICARBONATE 8.4% SOLN 50 MEQ/50 ML VIAL IV PRN ×2 (03:45)
[2016-11-24] MEDS ORDERED: POTASSIUM CHLOR 20 MEQ PREMIX 100 ML IV PRN ×6 (03:45)
[2016-11-24] MEDS: CHLORHEXIDINE GLUCONATE 2 % 1 PACK (2 CLOTHS) TOP SCH ×2 (04:00)
[2016-11-24 04:13] LABS: BASOPHIL % 0.5 % (0.0-2.0); EOSINOPHIL # 0.2 TH/MM3 (0-0.4); HEMATOCRIT 35.7 % (39.0-51.0); HEMO FLAGS DIFF FINAL; LYMPH % 10.5 % (9.0-44.0); LYMPHOCYTE # 0.8 TH/MM3 (1.0-4.8); MEAN CELL VOLUME 91.7 FL (80.0-100.0); MEAN CORPUSCULAR HEMOGLOBIN 31.9 PG (27.0-34.0); MEAN CORPUSCULAR HGB CONC 34.8 % (32.0-36.0); MONO % 10.6 % (0.0-8.0); NEUT % 76.4 % (16.0-70.0); PLATELET COUNT 119 TH/MM3 (150-450); RED BLOOD COUNT 3.89 MIL/MM3 (4.50-5.90); RED CELL DISTRIBUTION WIDTH 12.9 % (11.6-17.2); WHITE BLOOD COUNT 7.8 TH/MM3 (4.0-11.0)
[2016-11-24] MEDS: DEXT 5%-NACL 0.9% 1000 ML INJ 1,000 ML IV SCH ×2 (04:15→09:26)
[2016-11-24] MEDS: BRIMONIDINE TARTRATE 0.15% OPHT SOLN 5 ML BTL EACH EYE SCH ×3 (04:16→20:58)
[2016-11-24 04:39] LABS: ALT (GPT) 27 U/L (12-78); ANION GAP 8 MEQ/L (5-15); AST (GOT) 19 U/L (15-37); BICARBONATE 24.7 MEQ/L (21.0-32.0); BLOOD UREA NITROGEN 34 MG/DL (7-18); CHLORIDE 106 MEQ/L (98-107); GLOMERULAR FILTRATION RATE 40 ML/MIN (>89); MAGNESIUM 2.2 MG/DL (1.5-2.5); POTASSIUM 3.5 MEQ/L (3.5-5.1); SODIUM (NA) 139 MEQ/L (136-145)
[2016-11-24 04:42] LABS: ALKALINE PHOSPHATASE 87 U/L (45-117); BETA-HYDROXYBUTYRATE 0.59 MMOL/L (0.00-0.39); TOTAL BILIRUBIN ADULT 0.5 MG/DL (0.2-1.0)
--- NOTE | 2016-11-24 04:45 | RADRPT ---
EXAM DATE/TIME: 11/24/2016 02:46 [facility] COMPARISON: CHEST SINGLE AP, November 22, 2016, 14:35. INDICATIONS : Evaluate right side rib fractures. MEDICAL HISTORY : Hypertension. Cardiovascular disease. SURGICAL HISTORY : CABG. Coronary artery stent ENCOUNTER: Subsequent ACUITY: 3 days PAIN SCORE: 7/10 LOCATION: Bilateral chest INDINGS: Single AP view of the chest. Median sternotomy wires again seen. Decrease in left lung base opacity. Cardiomediastinal silhouette within normal limits. No evidence of pleural effusion or pneumothorax. CONCLUSION: Decreased left lung base atelectasis. No other acute cardiopulmonary disease iden tified. Miguel Angel Arizmendi MD on November 24, 2016 at 4:41 Board Certified Radiologist. This report was verified electronically.
[2016-11-24] MEDS: SODIUM CHLORIDE 0.9% FLUSH 10 ML FLUSH IV FLUSH SCH ×2 (09:00→20:49)
[2016-11-24] MEDS: ASPIRIN 81 MG CHEW TAB CHEW SCH (09:00)
[2016-11-24] MEDS: CYCLOBENZAPRINE HCL 10 MG TAB PO SCH ×3 (09:15→18:00)
[2016-11-24] MEDS: ISOSORBIDE MONONITRATE 30 MG TAB PO SCH (09:15)
[2016-11-24] MEDS: levETIRAcetam 500 MG TAB PO SCH ×2 (09:15→20:48)
[2016-11-24] MEDS: MINOCYCLINE HCL 50 MG CAP PO SCH ×2 (09:15→20:45)
[2016-11-24] MEDS: DOCUSATE SODIUM 50 MG/SENNA 8.6 MG TAB PO SCH ×2 (09:15→20:45)
[2016-11-24] MEDS: METOPROLOL TARTRATE 50 MG TAB PO SCH ×2 (09:16→20:45)
[2016-11-24] MEDS: PRIMIDONE 250 MG TAB PO SCH ×3 (09:16→18:00)
[2016-11-24] MEDS: PANTOPRAZOLE SOD 40 MG DELAYED RELEASE TAB PO SCH (09:16)
[2016-11-24] MEDS: CLOPIDOGREL 75 MG TAB PO SCH (09:16)
[2016-11-24] MEDS: TIMOLOL MALEATE 0.25% OPHT SOLN 5 ML BTL EACH EYE SCH ×2 (09:17→20:58)
[2016-11-24] MEDS ORDERED: GLUCAGON 1 MG/ML VIAL OTHER PRN (10:45)
[2016-11-24] MEDS ORDERED: DC previous DKA orders (HMC 1917) ONE (10:45)
[2016-11-24] MEDS ORDERED: DEXTROSE 50% IN WATER 50 ML VIAL(D50) IV PRN (10:45)
[2016-11-24] MEDS ORDERED: DC Insulin drip 2 hrs post basal insulin dose ONE (10:45)
--- NOTE | 2016-11-24 11:00 | HHI.CCPN ---
Subjective Remarks/Hospital Course 81-year-old male presents with history of fall last night at 8 PM. Patient was unable to get up from the floor after the fall. This morning his family found him and called EMS. As per EMS as they were pulling in they noticed that he started going into a generalized tonic-clonic seizure that started on his right upper extremity. Family did mention to the paramedics that he was seen at [facility] emergency room yesterday for his right arm "twitching". His blood sugar was high and he was eventually discharged. His blood sugar on route was 285 as per the paramedics. Currently patient is awake and talking. He has had previous stroke couple months ago. He was tachycardic upon arrival. Subjective: 11/23: No seizure activity overnight. The patient is noted to be hyperglycemic , moderate dose sliding scale insulin instituted. Patient tolerating diet with difficulty secondary to not having his dentures will change to mechanical soft diet. Patient's pain scale described as 6/10 secondary to rib fractures. Incentive spirometry planned while awake. 11/24: Patient was placed on insulin infusion yesterday secondary to persistent hyperglycemia. Anion gap close this morning, patient transitioned to subcutaneous Levemir. supervisor fine grading consultation initiated. Objective Vital Signs Date Time Temp Pulse Resp B/P Pulse Ox O2 Delivery O2 Flow Rate FiO2 11/24/16 06:00 69 11/24/16 04:00 98.2 19 121/65 94 11/22/16 19:05 Room Air Intake and Output 11/23/16 11/23/16 11/24/16 08:00 16:00 00:00 Intake Total 300 ml 240 ml 100 ml Output Total 200 ml 300 ml 250 ml Balance 100 ml -60 ml -150 ml Result Diagram: 11/24/16 0402 11/24/16 0402 Objective Remarks GENERAL: Well-nourished, well-developed patient. SKIN: Warm and dry. HEAD: Normocephalic. EYES: No scleral icterus. No injection or drainage. NECK: Supple, trachea midline. No JVD or lymphadenopathy. CARDIOVASCULAR: Regular rate and rhythm without murmurs, gallops, or rubs. RESPIRATORY: Breath sounds equal bilaterally. No accessory muscle use. GASTROINTESTINAL: Abdomen soft, non-tender, nondistended. MUSCULOSKELETAL: No cyanosis, or edema. BACK: Nontender without obvious deformity. No CVA tenderness. Tenderness noted left posterior region, in the area rib fractures. EXTREMITIES: No clubbing, cyanosis Date of Insertion: Nov 22, 2016 A/P Assessment and Plan Seizure disorder - Most likely due to old stroke - Keppra x 1 dose - Neurology consulted, follow-up recommendations - [id number] result - 11/22 CT brain acute infarct mild cerebral atrophy Coronary artery disease - status post CABG and 6 stents - No acute event - Supportive care - Continue Aspirin, Plavix, atorvastatin and beta john Hypothyroidism - Levothyroxine continue Dyslipidemia - Atorvastatin Diabetes mellitus -Discontinue insulin infusion, begin subcutaneous Levemir -Glucose monitoring per unit protocol GERD - Pantoprazole Hypertension - Metoprolol - Isosorbide DVT GI prophylaxis - Teds SCDs subcutaneous heparin and, pantoprazole Critical Care: Level 2 Discussed with SENIOR WEB DESIGNER and patient at bedside. Plan transfer to [facility] in a.m.. Physician Elise Brambila MD Nov 24, 2016 11:00
[2016-11-24 11:24] LABS: MEAN CELL VOLUME 92.6 FL (80.0-100.0); MEAN CORPUSCULAR HEMOGLOBIN 31.4 PG (27.0-34.0); MEAN CORPUSCULAR HGB CONC 33.9 % (32.0-36.0); PLATELET COUNT 117 TH/MM3 (150-450); RED BLOOD COUNT 3.89 MIL/MM3 (4.50-5.90); RED CELL DISTRIBUTION WIDTH 13.2 % (11.6-17.2); REVIEW FLAG FINAL; WHITE BLOOD COUNT 5.9 TH/MM3 (4.0-11.0)
[2016-11-24 11:57] LABS: BICARBONATE 23.4 MEQ/L (21.0-32.0); MAGNESIUM 2.1 MG/DL (1.5-2.5); POTASSIUM 3.5 MEQ/L (3.5-5.1)
[2016-11-24 12:01] LABS: BACTERIA, URINE RARE /hpf; BLOOD, URINE MOD (NEG); GLUCOSE,URINE 1000 mg/dL (NEG); KETONE, URINE NEG (NEG); MUCUS URINE FEW /lpf (OCC); NITRITE,URINE NEG (NEG); PH, URINE 5.5 (5.0-8.5); SQUAMOUS EPITHELIAL CELL URINE <1 /hpf (0-5); URINE COLOR YELLOW (YELLW/STRAW)
[2016-11-24 12:02] LABS: COMMENT (UR) CATH-CULTURE IND; CULTURE IF INDICATED CATH CULTURE IND
[2016-11-24] MEDS: INSULIN DETEMIR 100 UNITS/ML VIAL SQ SCH (12:52)
[2016-11-24 16:06] LABS: ANION GAP 10 MEQ/L (5-15); BICARBONATE 21.9 MEQ/L (21.0-32.0); BLOOD UREA NITROGEN 28 MG/DL (7-18); CHLORIDE 105 MEQ/L (98-107); GLOMERULAR FILTRATION RATE 48 ML/MIN (>89); MAGNESIUM 2.1 MG/DL (1.5-2.5); POTASSIUM 3.7 MEQ/L (3.5-5.1); SODIUM (NA) 137 MEQ/L (136-145)
[2016-11-24 16:07] LABS: BETA-HYDROXYBUTYRATE 0.52 MMOL/L (0.00-0.39)
--- NOTE | 2016-11-24 18:07 | MG ---
cc: KRISHNA RUSHING M.D. Lab No: [id number] Date: Age: 81 Sex: M Race: ROOM: 503. Awake, drowsy asleep study with photic stimulation. MRI with chronic white matter changes. This is 81-year-old man had a fall and could not get up. Family witnessed at a generalized tonic clonic seizure. Found to have elevated blood glucose. He has a history of stroke, I believe pontine in the past, a few months past, a myocardial infarction history in the '80s, thyroid disease. Medications: Currently on insulin, aspirin, Plavix, Flexeril, Imdur, Mysoline and I believe he is now on Keppra. DESCRIPTION OF RECORD: The patient has some mild slowing 6-7 Hz. He is noted to be asleep and snoring per associate technician but there is some mild slowing noted. EKG looks sinus. He awakens. There is a little artifact but more reactive background. No epileptic activity seen. Photic stimulation does elicit a mild driving response. IMPRESSION: Mild slowing may be due to somnolent state versus a very mild encephalopathic process but no evidence of epileptic activity. Clinical correlation. MD JESUS Cortes/JADA /5:39 PM /6:09 PM
[2016-11-24] MEDS: ALPRAZolam 0.5 MG TAB PO PRN (20:45)
[2016-11-24] MEDS: ATORVASTATIN 40 MG TAB PO SCH (20:45)
[2016-11-24 21:34] LABS: BICARBONATE 21.2 MEQ/L (21.0-32.0); POTASSIUM 3.7 MEQ/L (3.5-5.1)
[2016-11-25] VITALS (14 sets, daily range): BP systolic 104–152; BP diastolic 58–76; PULSE 66–85; RESP 17–23; TEMP 97.2–98.4; O2SAT 88–100
[2016-11-25] MEDS: LOW DOSE INSULIN NOVOLIN REGULAR SUPPLEMENTAL SCALE SQ SCH ×5 (03:00→21:12)
[2016-11-25] MEDS: CHLORHEXIDINE GLUCONATE 2 % 1 PACK (2 CLOTHS) TOP SCH (04:00)
[2016-11-25 04:17] LABS: BETA-HYDROXYBUTYRATE 0.3 MMOL/L (0.00-0.39); BICARBONATE 26.4 MEQ/L (21.0-32.0); MAGNESIUM 1.8 MG/DL (1.5-2.5); POTASSIUM 3.4 MEQ/L (3.5-5.1)
[2016-11-25 04:31] LABS: CALCIUM-PROTEIN CORRECTED 7.9 MG/DL (8.5-10.1)
[2016-11-25] MEDS: PANTOPRAZOLE SOD 40 MG DELAYED RELEASE TAB PO SCH (05:55)
[2016-11-25] MEDS: ACETAMINOPHEN 1000 MG/100 ML VIAL IV SCH (05:55)
[2016-11-25] MEDS: BRIMONIDINE TARTRATE 0.15% OPHT SOLN 5 ML BTL EACH EYE SCH ×3 (05:55→21:05)
[2016-11-25] MEDS: SODIUM CHLOR 0.9% 1000 ML INJ 1,000 ML IV SCH ×3 (06:00→17:47)
[2016-11-25 06:55] LABS: BICARBONATE 22.2 MEQ/L (21.0-32.0); MAGNESIUM 1.9 MG/DL (1.5-2.5); POTASSIUM 3.3 MEQ/L (3.5-5.1)
[2016-11-25] MEDS ORDERED: traMADol HCL 50 MG TAB PO PRN (09:15)
[2016-11-25] MEDS: levETIRAcetam 500 MG TAB PO SCH ×2 (09:31→21:04)
[2016-11-25] MEDS: PRIMIDONE 250 MG TAB PO SCH ×3 (09:31→17:47)
[2016-11-25] MEDS: MINOCYCLINE HCL 50 MG CAP PO SCH ×2 (09:31→21:04)
[2016-11-25] MEDS: ASPIRIN 81 MG CHEW TAB CHEW SCH (09:31)
[2016-11-25] MEDS: ALPRAZolam 0.5 MG TAB PO PRN (09:32)
[2016-11-25] MEDS: CLOPIDOGREL 75 MG TAB PO SCH (09:32)
[2016-11-25] MEDS: DOCUSATE SODIUM 50 MG/SENNA 8.6 MG TAB PO SCH ×2 (09:32→21:04)
[2016-11-25] MEDS: ISOSORBIDE MONONITRATE 30 MG TAB PO SCH (09:32)
[2016-11-25] MEDS: CYCLOBENZAPRINE HCL 10 MG TAB PO SCH ×3 (09:32→17:47)
--- NOTE | 2016-11-25 09:33 | HHI.PR ---
Subjective Remarks Pt complains of significant right sided rib pain. He is noted to have multiple rib fractures from his fall. He reports issues with dysphagia which he has had problems with in the past. Pts last EGD with dilation was in 2010 Objective Vitals Vital Signs Date Time Temp Pulse Resp B/P Pulse Ox O2 Delivery O2 Flow Rate FiO2 11/25/16 06:00 68 11/25/16 04:00 98.4 72 21 152/71 99 11/25/16 04:00 72 11/25/16 02:00 71 11/25/16 00:00 75 11/25/16 00:00 98.4 75 22 140/73 88 11/24/16 22:00 71 11/24/16 20:00 92 11/24/16 20:00 98.2 92 24 133/73 100 11/24/16 16:00 75 27 135/66 99 11/24/16 15:00 79 24 136/76 99 11/24/16 14:25 19 11/24/16 14:00 74 22 131/73 100 11/24/16 13:00 72 21 148/79 100 11/24/16 12:00 98.7 64 19 144/70 99 11/24/16 11:00 62 21 144/76 100 11/24/16 10:00 68 19 150/77 98 11/24/16 11/24/16 11/25/16 15:00 23:00 07:00 Intake Total 1973 ml 711 ml 1030 ml Output Total 500 ml 550 ml 450 ml Balance 1473 ml 161 ml 580 ml Intake Oral 180 ml IV Total 1793 ml 711 ml 1030 ml Output Urine Total 500 ml 550 ml 450 ml # Bowel Movements 0 Result Diagram: 11/24/16 1045 11/25/16 0610 Other Results Laboratory Tests Test 11/23/16 11/23/16 11/24/16 11/24/16 10:21 18:33 04:02 10:15 Random Glucose 309 MG/DL 171 MG/DL Total Creatine Kinase 272 U/L B-Hydroxybutyrate 2.61 MMOL/L 0.59 MMOL/L White Blood Count 7.8 TH/MM3 Red Blood Count 3.89 MIL/MM3 Hemoglobin 12.4 GM/DL Hematocrit 35.7 % Mean Corpuscular Volume 91.7 FL Mean Corpuscular Hemoglobin 31.9 PG Mean Corpuscular Hemoglobin 34.8 % Concent Red Cell Distribution Width 12.9 % Platelet Count 119 TH/MM3 Mean Platelet Volume 9.6 FL Neutrophils (%) (Auto) 76.4 % Lymphocytes (%) (Auto) 10.5 % Monocytes (%) (Auto) 10.6 % Eosinophils (%) (Auto) 2.0 % Basophils (%) (Auto) 0.5 % Neutrophils # (Auto) 6.0 TH/MM3 Lymphocytes # (Auto) 0.8 TH/MM3 Monocytes # (Auto) 0.8 TH/MM3 Eosinophils # (Auto) 0.2 TH/MM3 Basophils # (Auto) 0.0 TH/MM3 CBC Comment DIFF FINAL Differential Comment Sodium Level 139 MEQ/L Potassium Level 3.5 MEQ/L Chloride Level 106 MEQ/L Carbon Dioxide Level 24.7 MEQ/L Anion Gap 8 MEQ/L Blood Urea Nitrogen 34 MG/DL Creatinine 1.66 MG/DL Estimat Glomerular Filtration 40 ML/MIN Rate Calcium Level 8.2 MG/DL Phosphorus Level 2.2 MG/DL Magnesium Level 2.2 MG/DL Total Bilirubin 0.5 MG/DL Aspartate Amino Transf 19 U/L (AST/SGOT) Alanine Aminotransferase 27 U/L (ALT/SGPT) Alkaline Phosphatase 87 U/L Troponin I 0.02 NG/ML Total Protein 6.6 GM/DL Albumin 2.9 GM/DL Lipase 270 U/L Urine Color YELLOW Urine Turbidity CLEAR Urine pH 5.5 Urine Specific [place] 1.029 Urine Protein TRACE mg/dL Urine Glucose (UA) 1000 mg/dL Urine Ketones NEG mg/dL Urine Occult Blood MOD Urine Nitrite NEG Urine Bilirubin NEG Urine Urobilinogen LESS THAN 2.0 MG/DL Urine Leukocyte Esterase MOD Urine RBC 14 /hpf Urine WBC 30 /hpf Urine Squamous Epithelial <1 /hpf Cells Urine Bacteria RARE /hpf Urine Mucus FEW /lpf Microscopic Urinalysis Comment CATH-CULTURE IND Test 11/24/16 11/24/16 11/24/16 11/25/16 10:45 15:26 21:06 03:26 White Blood Count 5.9 TH/MM3 Red Blood Count 3.89 MIL/MM3 Hemoglobin 12.2 GM/DL Hematocrit 36.0 % Mean Corpuscular Volume 92.6 FL Mean Corpuscular Hemoglobin 31.4 PG Mean Corpuscular Hemoglobin 33.9 % Concent Red Cell Distribution Width 13.2 % Platelet Count 117 TH/MM3 Mean Platelet Volume 10.1 FL Sodium Level 139 MEQ/L 137 MEQ/L 136 MEQ/L 140 MEQ/L Potassium Level 3.5 MEQ/L 3.7 MEQ/L 3.7 MEQ/L 3.4 MEQ/L Chloride Level 105 MEQ/L 105 MEQ/L 105 MEQ/L 108 MEQ/L Carbon Dioxide Level 23.4 MEQ/L 21.9 MEQ/L 21.2 MEQ/L 26.4 MEQ/L Anion Gap 11 MEQ/L 10 MEQ/L 10 MEQ/L 6 MEQ/L Blood Urea Nitrogen 31 MG/DL 28 MG/DL 26 MG/DL 24 MG/DL Creatinine 1.60 MG/DL 1.42 MG/DL 1.49 MG/DL 1.35 MG/DL Estimat Glomerular Filtration 42 ML/MIN 48 ML/MIN 45 ML/MIN 51 ML/MIN Rate Random Glucose 334 MG/DL 272 MG/DL 294 MG/DL 204 MG/DL Calcium Level 7.8 MG/DL 7.7 MG/DL 7.8 MG/DL 7.4 MG/DL Phosphorus Level 2.2 MG/DL 2.3 MG/DL 2.3 MG/DL 2.4 MG/DL Magnesium Level 2.1 MG/DL 2.1 MG/DL 2.0 MG/DL 1.8 MG/DL B-Hydroxybutyrate 0.52 MMOL/L 0.30 MMOL/L Protein Corrected Calcium 7.9 MG/DL Total Protein 6.1 GM/DL Test 11/25/16 06:10 Sodium Level 141 MEQ/L Potassium Level 3.3 MEQ/L Chloride Level 108 MEQ/L Carbon Dioxide Level 22.2 MEQ/L Anion Gap 11 MEQ/L Blood Urea Nitrogen 22 MG/DL Creatinine 1.26 MG/DL Estimat Glomerular Filtration 55 ML/MIN Rate Random Glucose 165 MG/DL Calcium Level 7.5 MG/DL Phosphorus Level 2.4 MG/DL Magnesium Level 1.9 MG/DL Imaging Last Impressions Chest X-Ray 11/24/16 0600 Signed Impressions: Service Date/Time: Thursday, November 24, 2016 02:46 - CONCLUSION: Decreased left lung base atelectasis. No other acute cardiopulmonary disease identified. Miguel Angel Arizmendi MD Head CT 11/22/16 1347 Signed Impressions: Service Date/Time: Tuesday, November 22, 2016 15:02 - CONCLUSION: 1. Mild cerebral atrophy and periventricular/subcortical white matter small vessel ischemic changes bilaterally. 2. No acute infarct, acute hemorrhage, mass effect or extra-axial fluid collections. Rojelio Smith MD Thoracic Spine CT 11/22/16 0000 Signed Impressions: Service Date/Time: Tuesday, November 22, 2016 15:09 - CONCLUSION: 1. Mildly displaced posterior right fifth, sixth, eighth, and ninth rib fractures. No definitive pneumothorax an individual is portions of lung. Very subtle right-sided hemothorax. 2. No evidence for vertebral compression fracture or subluxation. Royal Martinez MD Lumbar Spine CT 11/22/16 0000 Signed Impressions: Service Date/Time: Tuesday, November 22, 2016 15:09 - CONCLUSION: 1. Moderate to severe spinal stenosis at L4-5. 2. There are degenerative changes throughout the remainder of the lumbar spine. 3. The infrarenal aorta is at the upper limits of normal in size at 3 cm. 4. No acute fracture identified. Urbano Freed MD Cervical Spine CT 11/22/16 0000 Signed Impressions: Service Date/Time: Tuesday, November 22, 2016 15:04 - CONCLUSION: Degenerative changes, otherwise negative. Avtar Freed MD FACR Brain MRI 11/22/16 0000 Signed Impressions: Service Date/Time: Wednesday, November 23, 2016 15:07 - CONCLUSION: 1. No acute infarct or other acute intracranial abnormality. 2. Chronic white matter changes. 3. Numerous small scattered foci of old hemosiderin deposition as above, could be related to remote trauma or chronic microvascular hemorrhage. Harley Greene MD Objective Remarks General: Appears painful, AAOx3 Chest: CTA, poor inspiratory effort Cardiac: Regular Abd: +BS, soft ND/NT Ext: No edema Neuro: RUE weakness, decreased human resources compensation analyst strength, RLE mild weakness compared to LLE Date of Insertion: Nov 22, 2016 A/P Problem List: (1) Seizure as late effect of cerebrovascular accident (CVA) Status: Acute Plan: - Pt is a 81 y/o male with hx of recent hx of a CVA in the left opal who was admitted after a fall at home and noted seizure like activity in the right upper extremity. His blood sugar on route was 285 per the ED notes. - Pt was admitted to the ICU under the care of the intensivists. - Neurology was consulted - Head CT (11/22/16) --> Mild cerebral atrophy and periventricular/subcortical white matter small vessel ischemic changes bilaterally. No acute infarct, acute hemorrhage, mass effect or extra- axial fluid collections. - MRI (11/23/16) --> No acute infarct or other acute intracranial abnormality. Chronic white matter changes. Numerous small scattered foci of old hemosiderin deposition as above, could be related to remote trauma or chronic microvascular hemorrhage. - Pt started on Mysolin 250mg TID and Keppra 500mg Q12H - Pt was noted to have mildly displaced posterior right fifth, sixth, eighth, and ninth rib fractures. No definitive pneumothorax - EEG (11/24/16) --> Mild slowing may be due to somnolent state versus a very mild encephalopathic process but no evidence of epileptic activity. Clinical correlation. - Pt still having paresthesia in the right hand and some weakness which has been going on since his previous CVA. - PT/OT - Cont. BB/ASA/Plavix/Statin - Flexeril TID - Tramadol PRN for pain - Pt will likely need SNF placement at the end of this hospitalization and may need LTC placement after that. - Supportive care - DVT prophylaxis (2) Hyperglycemia Status: Acute Plan: - Patient was placed on insulin infusion on 11/23 secondary to persistent hyperglycemia. Anion gap closed on 11/24 and he was transitioned to subcutaneous Levemir and NovoLog SSI. - tong hooker consultation initiated. - Hgb A1C pending. (3) Paresthesia Status: Chronic Plan: - See above. (4) Dysphagia Status: Chronic Plan: - Pt reports issues with dysphagia which has been a problem in the past and he has hx of esophageal ring. - Last EGD with dilation was on 06/06/2011 --> an esophageal ring was found in the proximal esophagus s/p dilation to 15-16mm, esophagitis at the GE junction. (5) Hypothyroidism Status: Chronic (6) GERD (gastroesophageal reflux disease) Status: Chronic Plan: - PPI (7) Dyslipidemia Status: Chronic Plan: - Cont. Lipitor (8) Anxiety Status: Acute Assessment and Plan Patient examined. Assessment and plan formulated with Cynthia Uribe PA-C. I agree with the above. Pt continues to c/o pain from rib fractures despite ultram. Will start Celebrex 100mg BID x 4-6 weeks. Start norco prn pain. transfer to general medical floor. anticipate discharge to SNF in 2-3 days. Await GI consult. Cynthia Uribe Nov 25, 2016 09:33 Papo Rojas DO Nov 25, 2016 11:26
[2016-11-25] MEDS: METOPROLOL TARTRATE 50 MG TAB PO SCH ×2 (09:34→21:04)
[2016-11-25] MEDS: INSULIN DETEMIR 100 UNITS/ML VIAL SQ SCH (09:34)
[2016-11-25] MEDS: SODIUM CHLORIDE 0.9% FLUSH 10 ML FLUSH IV FLUSH SCH ×2 (09:35→21:00)
[2016-11-25] MEDS: TIMOLOL MALEATE 0.25% OPHT SOLN 5 ML BTL EACH EYE SCH ×2 (09:36→21:05)
[2016-11-25] MEDS: BISACODYL 10 MG SUPP RECTAL PRN (11:38)
[2016-11-25] MEDS: POTASSIUM CHLORIDE 10 MEQ CAP PO SCH ×2 (11:39→15:35)
[2016-11-25] MEDS: ACETAMINOPHEN/HYDROcodone 325 MG/5 MG TAB PO PRN (11:47)
[2016-11-25] MEDS: CELECOXIB 100 MG CAP PO SCH ×2 (14:47→21:04)
--- NOTE | 2016-11-25 14:53 | MB ---
cc: BEENA PALAFOX,ERIBERTO SANCHEZ,ROMULO BACA M.D. DATE OF CONSULTATION: 11/25/[address] Romulo Alvares. PRIMARY CARE PROVIDER Dr. Cayden Sanchez. REASON FOR CONSULTATION: Dysphagia. HISTORY OF PRESENT ILLNESS The patient is a 81-year-old male who has undergone esophageal dilations in the past by Dr. Sun. His last esophageal dilatation he reports has been 2 or 3 years ago. Since then he has had progressive increase in his difficulty swallowing during the past six months or so. He senses the food sticking in the upper part of his esophagus and lower throat. Sometimes he will push on the suprasternal notch and allow food to pass down farther. He denies any hematemesis or melena. He has been limiting his diet to liquids for several months now. He states that he is in the hospital because he developed a stroke a few months ago. His right arm was affected, it is still weak. A few days ago he began having twitching motions of his right arm and then he developed localized and then grand mal seizures. He states that his stroke a few months ago was located in the opal. He does take Plavix. PAST MEDICAL HISTORY Positive for: 1. Coronary artery disease for which he underwent coronary artery bypass grafting and placement of several stents. 2. He has GERD and 3. Hypertension. PAST SURGICAL HISTORY Otherwise positive for: 1. Appendectomy. 2. Cataract surgery. 3. Left humerus fracture. SOCIAL HISTORY He does not drink alcoholic beverages. FAMILY HISTORY Noncontributory. MEDICATION Current medications, list was reviewed and includes: 1. Aspirin 81 mg per day. 2. Pantoprazole 40 mg per day. 3. Plavix which he has been taking for five days. Prior to that he had discontinued it for a period of time. REVIEW OF SYSTEMS He denies any abdominal pain, nausea, vomiting. Denies headache, sore throat, earache. He does have constipation for which he uses stool softeners. Otherwise, complete review of systems is negative. PHYSICAL EXAMINATION GENERAL: He is a chronically ill-appearing elderly white male, in no apparent distress. He is alert and oriented and gives good history. His daughter is in the exam room with him. He appears well-nourished. SKIN: His skin is normal and dry. HEENT: Shows no jaundice. He does appear somewhat pale. Mucous membranes are moist. NECK: Supple. HEART: Heart sounds are normal. LUNGS: Lung sounds are clear to auscultation. ABDOMEN: Soft. There is no tenderness. No distension. EXTREMITIES: Without cyanosis. His right upper extremity is weak and appears mildly swollen. LAB AND X-RAY DATA INR is 1.0. Electrolytes are normal. Creatinine 1.5, glucose is 321. AST 33, ALT 32. White blood cell count 10,000, hematocrit 41%, platelet count 125,000. IMPRESSION 1. Dysphagia, probably due to a proximal esophageal stricture. He also suffers from GERD. I had a discussion with him about the risk of doing esophageal dilatation while he is taking Plavix. We will try to hold his Plavix for a few days and then perform EGD with dilatation, so he can have a more balanced diet. 2. Apparent new onset of hyperglycemia, probably diabetes. 3. Seizure disorder, most likely due to his stroke. 4. GERD. PLAN We will perform EGD with esophageal dilatation, probably in 2-3 days to allow him a few days off Plavix. Beena Palafox MD [facility]/TLL /2:04 PM /2:30 PM
[2016-11-25 16:56] LABS: HEMOGLOBIN A1a 1.3 %; HEMOGLOBIN Ao 75.2 %; HEMOGLOBIN F 1.9 %; HEMOGLOBIN LA1C 2.7 %; HEMOGLOBIN P3 5.9 %
[2016-11-25] MEDS: ATORVASTATIN 40 MG TAB PO SCH (21:04)
[2016-11-26] VITALS (7 sets, daily range): BP systolic 101–138; BP diastolic 61–80; PULSE 70–93; RESP 18–22; TEMP 96.7–100.1; O2SAT 96–100
[2016-11-26] MEDS: LOW DOSE INSULIN NOVOLIN REGULAR SUPPLEMENTAL SCALE SQ SCH ×5 (03:00→21:00)
[2016-11-26] MEDS: CHLORHEXIDINE GLUCONATE 2 % 1 PACK (2 CLOTHS) TOP SCH (03:25)
[2016-11-26] MEDS: SODIUM CHLOR 0.9% 1000 ML INJ 1,000 ML IV SCH ×2 (03:25→15:44)
[2016-11-26] MEDS: BRIMONIDINE TARTRATE 0.15% OPHT SOLN 5 ML BTL EACH EYE SCH ×2 (06:00→14:00)
[2016-11-26] MEDS: PANTOPRAZOLE SOD 40 MG DELAYED RELEASE TAB PO SCH (06:00)
[2016-11-26 07:44] LABS: POTASSIUM 4.1 MEQ/L (3.5-5.1)
[2016-11-26] MEDS: ISOSORBIDE MONONITRATE 30 MG TAB PO SCH (07:52)
[2016-11-26] MEDS: CYCLOBENZAPRINE HCL 10 MG TAB PO SCH ×3 (07:53→16:38)
[2016-11-26] MEDS: DOCUSATE SODIUM 50 MG/SENNA 8.6 MG TAB PO SCH ×2 (07:53→22:06)
[2016-11-26] MEDS: levETIRAcetam 500 MG TAB PO SCH ×2 (07:53→22:06)
[2016-11-26] MEDS: CELECOXIB 100 MG CAP PO SCH ×2 (07:53→22:06)
[2016-11-26] MEDS: METOPROLOL TARTRATE 50 MG TAB PO SCH ×2 (07:53→22:06)
[2016-11-26] MEDS: ASPIRIN 81 MG CHEW TAB CHEW SCH (07:53)
[2016-11-26] MEDS: PRIMIDONE 250 MG TAB PO SCH ×3 (07:53→16:38)
[2016-11-26] MEDS: MINOCYCLINE HCL 50 MG CAP PO SCH ×2 (07:53→22:06)
[2016-11-26] MEDS: INSULIN DETEMIR 100 UNITS/ML VIAL SQ SCH (07:54)
[2016-11-26] MEDS: SODIUM CHLORIDE 0.9% FLUSH 10 ML FLUSH IV FLUSH SCH ×2 (07:54→21:00)
[2016-11-26] MEDS: TIMOLOL MALEATE 0.25% OPHT SOLN 5 ML BTL EACH EYE SCH (07:55)
[2016-11-26 08:13] LABS: CALCIUM-PROTEIN CORRECTED 8.1 MG/DL (8.5-10.1)
--- NOTE | 2016-11-26 11:20 | HHI.PR ---
Subjective Remarks Pt with low grade fever today Pain is about the same today per the pt He has currently 400cc of urine in the [facility] cath and had recorded about 500cc overnight. Objective Vitals Vital Signs Date Time Temp Pulse Resp B/P Pulse Ox O2 Delivery O2 Flow Rate FiO2 11/26/16 08:09 100.1 93 22 129/64 97 11/26/16 04:33 98.2 78 18 131/67 99 11/26/16 00:08 97.8 70 21 101/61 96 11/25/16 20:00 97.7 85 20 107/63 97 11/25/16 17:17 97.2 75 20 106/58 97 11/25/16 14:00 68 104/59 100 11/25/16 14:00 68 11/25/16 13:00 68 22 135/64 100 11/25/16 12:00 98.1 71 22 138/76 100 11/25/16 12:00 71 11/25/16 11/25/16 11/26/16 15:00 23:00 07:00 Intake Total 927 ml 1343 ml Output Total 175 ml 500 ml Balance 752 ml 843 ml Intake Oral 260 ml IV Total 667 ml 1343 ml Output Urine Total 175 ml 500 ml # Bowel Movements 1 0 Result Diagram: 11/24/16 1045 11/26/16 0631 Other Results Laboratory Tests Test 11/24/16 11/24/16 11/25/16 11/25/16 15:26 21:06 03:26 06:10 Sodium Level 137 MEQ/L 136 MEQ/L 140 MEQ/L 141 MEQ/L Potassium Level 3.7 MEQ/L 3.7 MEQ/L 3.4 MEQ/L 3.3 MEQ/L Chloride Level 105 MEQ/L 105 MEQ/L 108 MEQ/L 108 MEQ/L Carbon Dioxide Level 21.9 MEQ/L 21.2 MEQ/L 26.4 MEQ/L 22.2 MEQ/L Anion Gap 10 MEQ/L 10 MEQ/L 6 MEQ/L 11 MEQ/L Blood Urea Nitrogen 28 MG/DL 26 MG/DL 24 MG/DL 22 MG/DL Creatinine 1.42 MG/DL 1.49 MG/DL 1.35 MG/DL 1.26 MG/DL Estimat Glomerular Filtration 48 ML/MIN 45 ML/MIN 51 ML/MIN 55 ML/MIN Rate Random Glucose 272 MG/DL 294 MG/DL 204 MG/DL 165 MG/DL Hemoglobin A1c 12.1 % Calcium Level 7.7 MG/DL 7.8 MG/DL 7.4 MG/DL 7.5 MG/DL Phosphorus Level 2.3 MG/DL 2.3 MG/DL 2.4 MG/DL 2.4 MG/DL Magnesium Level 2.1 MG/DL 2.0 MG/DL 1.8 MG/DL 1.9 MG/DL B-Hydroxybutyrate 0.52 MMOL/L 0.30 MMOL/L Protein Corrected Calcium 7.9 MG/DL Total Protein 6.1 GM/DL Test 11/26/16 06:31 Sodium Level 139 MEQ/L Potassium Level 4.1 MEQ/L Chloride Level 111 MEQ/L Carbon Dioxide Level 17.0 MEQ/L Anion Gap 11 MEQ/L Blood Urea Nitrogen 17 MG/DL Creatinine 0.98 MG/DL Estimat Glomerular Filtration 74 ML/MIN Rate Random Glucose 132 MG/DL Calcium Level 7.3 MG/DL Protein Corrected Calcium 8.1 MG/DL Total Protein 5.7 GM/DL Imaging Last Impressions Chest X-Ray 11/24/16 0600 Signed Impressions: Service Date/Time: Thursday, November 24, 2016 02:46 - CONCLUSION: Decreased left lung base atelectasis. No other acute cardiopulmonary disease identified. Miguel Angel Arizmendi MD Head CT 11/22/16 1347 Signed Impressions: Service Date/Time: Tuesday, November 22, 2016 15:02 - CONCLUSION: 1. Mild cerebral atrophy and periventricular/subcortical white matter small vessel ischemic changes bilaterally. 2. No acute infarct, acute hemorrhage, mass effect or extra-axial fluid collections. Rojelio Smith MD Thoracic Spine CT 11/22/16 0000 Signed Impressions: Service Date/Time: Tuesday, November 22, 2016 15:09 - CONCLUSION: 1. Mildly displaced posterior right fifth, sixth, eighth, and ninth rib fractures. No definitive pneumothorax an individual is portions of lung. Very subtle right-sided hemothorax. 2. No evidence for vertebral compression fracture or subluxation. Royal Martinez MD Lumbar Spine CT 11/22/16 0000 Signed Impressions: Service Date/Time: Tuesday, November 22, 2016 15:09 - CONCLUSION: 1. Moderate to severe spinal stenosis at L4-5. 2. There are degenerative changes throughout the remainder of the lumbar spine. 3. The infrarenal aorta is at the upper limits of normal in size at 3 cm. 4. No acute fracture identified. Urbano Freed MD Cervical Spine CT 11/22/16 0000 Signed Impressions: Service Date/Time: Tuesday, November 22, 2016 15:04 - CONCLUSION: Degenerative changes, otherwise negative. Avtar Freed MD FACR Brain MRI 11/22/16 0000 Signed Impressions: Service Date/Time: Wednesday, November 23, 2016 15:07 - CONCLUSION: 1. No acute infarct or other acute intracranial abnormality. 2. Chronic white matter changes. 3. Numerous small scattered foci of old hemosiderin deposition as above, could be related to remote trauma or chronic microvascular hemorrhage. Harley Greene MD Objective Remarks General: Appears less painful today, AAOx3 Chest: CTA, poor inspiratory effort Cardiac: Regular Abd: +BS, soft ND/NT Ext: No edema Neuro: RUE weakness, decreased podiatrist assistant strength, RLE mild weakness compared to LLE Date of Insertion: Nov 22, 2016 A/P Problem List: (1) Seizure as late effect of cerebrovascular accident (CVA) Status: Acute Plan: - Pt is a 81 y/o male with hx of recent hx of a CVA in the left opal who was admitted after a fall at home and noted seizure like activity in the right upper extremity. His blood sugar on route was 285 per the ED notes. - Pt was admitted to the ICU under the care of the intensivists. - Neurology was consulted - Head CT (11/22/16) --> Mild cerebral atrophy and periventricular/subcortical white matter small vessel ischemic changes bilaterally. No acute infarct, acute hemorrhage, mass effect or extra- axial fluid collections. - MRI (11/23/16) --> No acute infarct or other acute intracranial abnormality. Chronic white matter changes. Numerous small scattered foci of old hemosiderin deposition as above, could be related to remote trauma or chronic microvascular hemorrhage. - Pt started on Keppra 500mg Q12H - Pt takes Mysolin 250mg TID as an outpt - Pt was noted to have mildly displaced posterior right fifth, sixth, eighth, and ninth rib fractures. No definitive pneumothorax - EEG (11/24/16) --> Mild slowing may be due to somnolent state versus a very mild encephalopathic process but no evidence of epileptic activity. Clinical correlation. - Pt still having paresthesia in the right hand and some weakness which has been going on since his previous CVA. - PT/OT - Cont. BB/ASA/Statin, Plavix on hold for EGD - Flexeril TID - Eldred 5/325 Q6H PRN and Celebrex 100mg BID for pain control - Encourage IS use, low grade fever today likely related to atelectasis. - Urine culture with no growth x 2 days. - Pts weight is noted to be increasing in the records, decreased IVF to 70mL/hr as pt is not eating much and had reported decreased UOP yesterday of 1175 all day. Last night had out about 500mL and currently has 400mL in [facility] bag. We will stop fluids in AM. Encouraged oral intake. - Weigh pt daily on bedside stand up scale. - CXR in AM - Pt will likely need SNF placement at the end of this hospitalization and may need LTC placement after that. - DVT prophylaxis (2) Hyperglycemia Status: Acute Plan: - Patient was placed on insulin infusion on 11/23 secondary to persistent hyperglycemia. Anion gap closed on 11/24 and he was transitioned to subcutaneous Levemir and NovoLog SSI. - music educator consultation initiated. - Hgb A1C 12.1 - Blood sugars are better controlled currently - Pt will need to start OHA for diabetes mellitus, start Metformin 500mg BID and stop Levemir today (3) Paresthesia Status: Chronic Plan: - See above. (4) Dysphagia Status: Chronic Plan: - Pt reports issues with dysphagia which has been a problem in the past and he has hx of esophageal ring. - Last EGD with dilation was on 06/06/2011 --> an esophageal ring was found in the proximal esophagus s/p dilation to 15-16mm, esophagitis at the GE junction. - GI following. - Plavix being held in anticipation for EGD in the next 2-3 days (5) Hypothyroidism Status: Chronic (6) GERD (gastroesophageal reflux disease) Status: Chronic Plan: - PPI (7) Dyslipidemia Status: Chronic Plan: - Cont. Lipitor (8) Anxiety Status: Acute Assessment and Plan Patient examined. Assessment and plan formulated with Cynthia Uribe PA-C. I agree with the above. Cynthia Uribe Nov 26, 2016 11:20 Papo Rojas DO Nov 29, 2016 23:38
--- NOTE | 2016-11-26 12:29 | HHI.GIFU ---
Subjective Remarks Resting in bed. States that solids get caught in upper esophageal area- even puree foods. He has long hx of esophageal strictures and has had multiple dilatations in the past- last about 4 years ago. Plavix on hold. No n/v. No abdominal pain. Objective Vitals I&O Vital Signs Date Time Temp Pulse Resp B/P Pulse Ox O2 Delivery O2 Flow Rate FiO2 11/26/16 08:09 100.1 93 22 129/64 97 11/26/16 04:33 98.2 78 18 131/67 99 11/26/16 00:08 97.8 70 21 101/61 96 11/25/16 20:00 97.7 85 20 107/63 97 11/25/16 17:17 97.2 75 20 106/58 97 11/25/16 14:00 68 22 104/59 100 11/25/16 14:00 68 11/25/16 13:00 68 22 135/64 100 I/O 11/25/16 11/25/16 11/25/16 11/26/16 11/26/16 11/26/16 06:59 14:59 22:59 06:59 14:59 22:59 Intake Total 1030 ml 927 ml 1343 ml Output Total 450 ml 175 ml 500 ml Balance 580 ml 752 ml 843 ml Intake Oral 260 ml IV Total 1030 ml 667 ml 1343 ml Output Urine Total 450 ml 175 ml 500 ml # Bowel Movements 1 0 Laboratory Laboratory Tests Test 11/26/16 06:31 Sodium Level 139 Potassium Level 4.1 Chloride Level 111 Carbon Dioxide Level 17.0 Anion Gap 11 Blood Urea Nitrogen 17 Creatinine 0.98 Estimat Glomerular Filtration 74 Rate Random Glucose 132 Calcium Level 7.3 Protein Corrected Calcium 8.1 Total Protein 5.7 Date/Time Procedure Status Source Growth 11/24/16 10:15 Urine Culture - Final Complete Urine Catheterized Urine NO GROWTH IN 48 HOURS. Imaging Last Impressions Chest X-Ray 11/24/16 0600 Signed Impressions: Service Date/Time: Thursday, November 24, 2016 02:46 - CONCLUSION: Decreased left lung base atelectasis. No other acute cardiopulmonary disease identified. Miguel Angel Arizmendi MD Head CT 11/22/16 1347 Signed Impressions: Service Date/Time: Tuesday, November 22, 2016 15:02 - CONCLUSION: 1. Mild cerebral atrophy and periventricular/subcortical white matter small vessel ischemic changes bilaterally. 2. No acute infarct, acute hemorrhage, mass effect or extra-axial fluid collections. Rojelio Smith MD Thoracic Spine CT 11/22/16 Signed Impressions: Service Date/Time: Tuesday, November 22, 2016 15:09 - CONCLUSION: 1. Mildly displaced posterior right fifth, sixth, eighth, and ninth rib fractures. No definitive pneumothorax an individual is portions of lung. Very subtle right-sided hemothorax. 2. No evidence for vertebral compression fracture or subluxation. Royal Martinez MD Lumbar Spine CT 11/22/16 0000 Signed Impressions: Service Date/Time: Tuesday, November 22, 2016 15:09 - CONCLUSION: 1. Moderate to severe spinal stenosis at L4-5. 2. There are degenerative changes throughout the remainder of the lumbar spine. 3. The infrarenal aorta is at the upper limits of normal in size at 3 cm. 4. No acute fracture identified. Urbano Freed MD Cervical Spine CT 11/22/16 Signed Impressions: Service Date/Time: Tuesday, November 22, 2016 15:04 - CONCLUSION: Degenerative changes, otherwise negative. Avtar Freed MD FACR Brain MRI 11/22/16 Signed Impressions: Service Date/Time: Wednesday, November 23, 2016 15:07 - CONCLUSION: 1. No acute infarct or other acute intracranial abnormality. 2. Chronic white matter changes. 3. Numerous small scattered foci of old hemosiderin deposition as above, could be related to remote trauma or chronic microvascular hemorrhage. Harley Greene MD Physical Exam HEENT: Normocephalic; atraumatic; no jaundice. CHEST: CTA, diminished CARDIAC: RRR ABDOMEN: Soft, nondistended, nontender; no hepatosplenomegaly; bowel sounds are present in all four quadrants. EXTREMITIES: No clubbing, cyanosis, or edema. SKIN: Normal; no rash; no jaundice. MENTAL MEASUREMENTS TEACHER: Alert and oriented times three. Right sided weakness Assessment and Plan Plan ASSESSMENT: - Dysphagia, likely due to proximal esophageal stricture. He has long hx of esophageal strictures and has had multiple dilatations in the past- last about 4 years ago. He started having occasional symptoms about 2 years ago with worsening over the past several months. Solids, even pureed diet seems to get caught in upper esophagus. PPI. Plan is for EGD on , once he has been off of his plavix for several days. - Anemia. Mild. 12.2/36.0. - GERD. PPI. - Sz D/O, Hx CVA, hyperlipidemia,hypothyroidism, anxiety per primary PLAN: - Plan for EGD +/- Dilatation on - NPO after MN Friday night - Obtain consents - PPI - Hold Plavix - Supportive care - Further recommendations to follow based on results of above - Pt seen and examined by Dr. Palafox and myself and this note is written on his behalf Flor Truong Nov 26, 2016 12:29
[2016-11-26 13:17] LABS: PHENOBARBITAL 9.9 mcg/mL (10.0 - 40.0); PRIMDONE 8.6 mcg/mL (5.0 - 12.0)
[2016-11-26] MEDS: BISACODYL 10 MG SUPP RECTAL PRN (15:53)
[2016-11-26] MEDS: metFORMIN HCL 500 MG TAB PO SCH (16:38)
[2016-11-26] MEDS: ACETAMINOPHEN/HYDROcodone 325 MG/5 MG TAB PO PRN (16:38)
[2016-11-26] MEDS: ATORVASTATIN 40 MG TAB PO SCH (22:06)
[2016-11-27] VITALS (7 sets, daily range): BP systolic 107–148; BP diastolic 64–76; PULSE 71–94; RESP 16–22; TEMP 96.8–97.8; O2SAT 97–100
[2016-11-27] MEDS: LOW DOSE INSULIN NOVOLIN REGULAR SUPPLEMENTAL SCALE SQ SCH ×5 (03:00→21:03)
[2016-11-27] MEDS: CHLORHEXIDINE GLUCONATE 2 % 1 PACK (2 CLOTHS) TOP SCH (04:00)
[2016-11-27] MEDS: BRIMONIDINE TARTRATE 0.15% OPHT SOLN 5 ML BTL EACH EYE SCH ×4 (06:00→20:47)
[2016-11-27] MEDS: TIMOLOL MALEATE 0.25% OPHT SOLN 5 ML BTL EACH EYE SCH ×3 (06:09→20:46)
[2016-11-27] MEDS: PANTOPRAZOLE SOD 40 MG DELAYED RELEASE TAB PO SCH (06:09)
--- NOTE | 2016-11-27 06:56 | RADRPT ---
EXAM DATE/TIME: 11/27/2016 06:09 [facility] COMPARISON: CHEST SINGLE AP, November 24, 2016, 2:46. INDICATIONS : Short of breath. MEDICAL HISTORY : Hypertension. Cardiovascular disease. SURGICAL HISTORY : CABG. Coronary artery stent. ENCOUNTER: Subsequent ACUITY: 4 - 6 days PAIN SCORE: 2/10 LOCATION: Bilateral chest FINDINGS: Trace bibasilar atelectasis noted. No large effusion. No pneumothorax. Heart size stable, upper limits of normal. Previous median sternotomy changes are again noted. CONCLUSION: No significant change. Minimal bibasilar atelectasis again noted. Harley Greene MD on November 27, 2016 at 6:54 Board Certified Radiologist. This report was verified electronically.
[2016-11-27] MEDS: CYCLOBENZAPRINE HCL 10 MG TAB PO SCH ×3 (09:36→17:24)
[2016-11-27] MEDS: ASPIRIN 81 MG CHEW TAB CHEW SCH (09:36)
[2016-11-27] MEDS: levETIRAcetam 500 MG TAB PO SCH ×2 (09:37→20:46)
[2016-11-27] MEDS: PRIMIDONE 250 MG TAB PO SCH ×3 (09:37→17:24)
[2016-11-27] MEDS: DOCUSATE SODIUM 50 MG/SENNA 8.6 MG TAB PO SCH ×2 (09:37→20:46)
[2016-11-27] MEDS: MINOCYCLINE HCL 50 MG CAP PO SCH ×2 (09:38→20:46)
[2016-11-27] MEDS: ISOSORBIDE MONONITRATE 30 MG TAB PO SCH (09:38)
[2016-11-27] MEDS: METOPROLOL TARTRATE 50 MG TAB PO SCH ×2 (09:38→20:46)
[2016-11-27] MEDS: metFORMIN HCL 500 MG TAB PO SCH ×2 (09:38→17:24)
[2016-11-27] MEDS: SODIUM CHLORIDE 0.9% FLUSH 10 ML FLUSH IV FLUSH SCH ×2 (09:39→20:46)
[2016-11-27] MEDS: CELECOXIB 100 MG CAP PO SCH ×2 (09:45→20:46)
--- NOTE | 2016-11-27 13:52 | HHI.PR ---
Subjective Remarks Pt still with rib pain. He is using the IS Afebrile today. No eating much. Objective Vitals Vital Signs Date Time Temp Pulse Resp B/P Pulse Ox O2 Delivery O2 Flow Rate FiO2 11/27/16 12:00 96.9 74 19 107/64 98 11/27/16 09:57 77 11/27/16 08:00 97.7 83 19 148/72 100 11/27/16 04:00 97.2 77 16 143/76 98 11/27/16 00:37 97.8 71 18 137/71 99 11/26/16 21:11 97.9 89 18 129/72 99 11/26/16 20:00 90 11/26/16 16:22 96.7 88 18 138/80 100 11/26/16 11/26/16 11/27/16 15:00 23:00 07:00 Intake Total 1676 ml 942 ml Output Total 1400 ml 450 ml Balance 276 ml 492 ml Intake Oral 480 ml 320 ml IV Total 1196 ml 622 ml Output Urine Total 1400 ml 450 ml # Bowel Movements 2 0 Result Diagram: 11/24/16 1045 11/26/16 0631 Other Results Laboratory Tests Test 11/26/16 06:31 Sodium Level 139 MEQ/L Potassium Level 4.1 MEQ/L Chloride Level 111 MEQ/L Carbon Dioxide Level 17.0 MEQ/L Anion Gap 11 MEQ/L Blood Urea Nitrogen 17 MG/DL Creatinine 0.98 MG/DL Estimat Glomerular Filtration 74 ML/MIN Rate Random Glucose 132 MG/DL Calcium Level 7.3 MG/DL Protein Corrected Calcium 8.1 MG/DL Total Protein 5.7 GM/DL Imaging Last Impressions Chest X-Ray 11/24/16 0600 Signed Impressions: Service Date/Time: Thursday, November 24, 2016 02:46 - CONCLUSION: Decreased left lung base atelectasis. No other acute cardiopulmonary disease identified. Miguel Angel Arizmendi MD Head CT 11/22/16 1347 Signed Impressions: Service Date/Time: Tuesday, November 22, 2016 15:02 - CONCLUSION: 1. Mild cerebral atrophy and periventricular/subcortical white matter small vessel ischemic changes bilaterally. 2. No acute infarct, acute hemorrhage, mass effect or extra-axial fluid collections. Rojelio Smith MD Thoracic Spine CT 11/22/16 0000 Signed Impressions: Service Date/Time: Tuesday, November 22, 2016 15:09 - CONCLUSION: 1. Mildly displaced posterior right fifth, sixth, eighth, and ninth rib fractures. No definitive pneumothorax an individual is portions of lung. Very subtle right-sided hemothorax. 2. No evidence for vertebral compression fracture or subluxation. Royal Martinez MD Lumbar Spine CT 11/22/16 0000 Signed Impressions: Service Date/Time: Tuesday, November 22, 2016 15:09 - CONCLUSION: 1. Moderate to severe spinal stenosis at L4-5. 2. There are degenerative changes throughout the remainder of the lumbar spine. 3. The infrarenal aorta is at the upper limits of normal in size at 3 cm. 4. No acute fracture identified. Urbano Freed MD Cervical Spine CT 11/22/16 0000 Signed Impressions: Service Date/Time: Tuesday, November 22, 2016 15:04 - CONCLUSION: Degenerative changes, otherwise negative. Avtar Freed MD FACR Brain MRI 11/22/16 0000 Signed Impressions: Service Date/Time: Wednesday, November 23, 2016 15:07 - CONCLUSION: 1. No acute infarct or other acute intracranial abnormality. 2. Chronic white matter changes. 3. Numerous small scattered foci of old hemosiderin deposition as above, could be related to remote trauma or chronic microvascular hemorrhage. Harley Greene MD Objective Remarks General: Appears less painful today, AAOx3 Chest: CTA, poor inspiratory effort Cardiac: Regular Abd: +BS, soft ND/NT Ext: No edema Neuro: RUE weakness, decreased core measures abstractor strength, RLE mild weakness compared to LLE Date of Insertion: Nov 22, 2016 A/P Problem List: (1) Seizure as late effect of cerebrovascular accident (CVA) Status: Acute Plan: - Pt is a 81 y/o male with hx of recent hx of a CVA in the left opal who was admitted after a fall at home and noted seizure like activity in the right upper extremity. His blood sugar on route was 285 per the ED notes. - Pt was admitted to the ICU under the care of the intensivists. - Neurology was consulted - Head CT (11/22/16) --> Mild cerebral atrophy and periventricular/subcortical white matter small vessel ischemic changes bilaterally. No acute infarct, acute hemorrhage, mass effect or extra- axial fluid collections. - MRI (11/23/16) --> No acute infarct or other acute intracranial abnormality. Chronic white matter changes. Numerous small scattered foci of old hemosiderin deposition as above, could be related to remote trauma or chronic microvascular hemorrhage. - Pt started on Keppra 500mg Q12H - Pt takes Mysolin 250mg TID as an outpt - Pt was noted to have mildly displaced posterior right fifth, sixth, eighth, and ninth rib fractures. No definitive pneumothorax - EEG (11/24/16) --> Mild slowing may be due to somnolent state versus a very mild encephalopathic process but no evidence of epileptic activity. Clinical correlation. - Pt still having paresthesia in the right hand and some weakness which has been going on since his previous CVA. - PT/OT - Cont. BB/ASA/Statin, Plavix on hold for EGD - Flexeril TID - [place] 5/325 Q6H PRN and Celebrex 100mg BID for pain control - Encourage IS use, low grade fever on 11/26 likely related to atelectasis. - Urine culture with no growth x 2 days. - CXR (11/27) --> No significant change, minimal bilateral atelectasis again noted. - Pts weight is noted to be increasing in the records, IVF stopped this morning. - Encouraged oral intake. Glucerna with each meal and at bedtime. - Weigh pt daily on bedside stand up scale. - Pt will need SNF placement at the end of this hospitalization and may need LTC placement after that. - DVT prophylaxis (2) Hyperglycemia Status: Acute Plan: - Patient was placed on insulin infusion on 11/23 secondary to persistent hyperglycemia. Anion gap closed on 11/24 and he was transitioned to subcutaneous Levemir and NovoLog SSI. - conservation educator consultation initiated. - Hgb A1C 12.1 - Blood sugars are better controlled currently - Pt started on Metformin 500mg BID on 11/26 and Levemir stopped. Blood sugars are still running slightly high in the 180-200 during the day. He may need some adjustments to the Metformin dose going forward. (3) Paresthesia Status: Chronic Plan: - See above. (4) Dysphagia Status: Chronic Plan: - Pt reports issues with dysphagia which has been a problem in the past and he has hx of esophageal ring. - Last EGD with dilation was on 06/06/2011 --> an esophageal ring was found in the proximal esophagus s/p dilation to 15-16mm, esophagitis at the GE junction. - GI following. - Plavix being held in anticipation for EGD scheduled for tomorrow (5) Hypothyroidism Status: Chronic (6) GERD (gastroesophageal reflux disease) Status: Chronic Plan: - PPI (7) Dyslipidemia Status: Chronic Plan: - Cont. Lipitor (8) Anxiety Status: Acute Assessment and Plan Patient examined. Assessment and plan formulated with Cynthia Uribe PA-C. I agree with the above. Cynthia Uribe Nov 27, 2016 13:52 Papo Rojas DO Nov 29, 2016 23:39
--- NOTE | 2016-11-27 15:15 | HHI.GIFU ---
Subjective Remarks Pt resting in bed in no apparent distress. EAger for EGD with dilation. Objective Vitals I&O Vital Signs Date Time Temp Pulse Resp B/P Pulse Ox O2 Delivery O2 Flow Rate FiO2 11/27/16 12:00 96.9 74 19 107/64 98 11/27/16 09:57 77 11/27/16 08:00 97.7 83 19 148/72 100 11/27/16 04:00 97.2 77 16 143/76 98 11/27/16 00:37 97.8 71 18 137/71 99 11/26/16 21:11 97.9 89 18 129/72 99 11/26/16 20:00 90 11/26/16 16:22 96.7 88 18 138/80 100 I/O 11/26/16 11/26/16 11/26/16 11/27/16 11/27/16 11/27/16 07:00 15:00 23:00 07:00 15:00 23:00 Intake Total 1343 ml 1676 ml 942 ml Output Total 500 ml 1400 ml 450 ml 625 ml Balance 843 ml 276 ml 492 ml -625 ml Intake Oral 480 ml 320 ml IV Total 1343 ml 1196 ml 622 ml Output Urine Total 500 ml 1400 ml 450 ml 625 ml # Bowel Movements 0 2 0 Laboratory Date/Time Procedure Status Source Growth 11/24/16 10:15 Urine Culture - Final Complete Urine Catheterized Urine NO GROWTH IN 48 HOURS. Imaging Last Impressions Chest X-Ray 11/27/16 0600 Signed Impressions: Service Date/Time: Sunday, November 27, 2016 06:09 - CONCLUSION: No significant change. Minimal bibasilar atelectasis again noted. Harley Greene MD Head CT 11/22/16 1347 Signed Impressions: Service Date/Time: Tuesday, November 22, 2016 15:02 - CONCLUSION: 1. Mild cerebral atrophy and periventricular/subcortical white matter small vessel ischemic changes bilaterally. 2. No acute infarct, acute hemorrhage, mass effect or extra-axial fluid collections. Rojelio Smith MD Thoracic Spine CT 11/22/16 0000 Signed Impressions: Service Date/Time: Tuesday, November 22, 2016 15:09 - CONCLUSION: 1. Mildly displaced posterior right fifth, sixth, eighth, and ninth rib fractures. No definitive pneumothorax an individual is portions of lung. Very subtle right-sided hemothorax. 2. No evidence for vertebral compression fracture or subluxation. Royal Martinez MD Lumbar Spine CT 11/22/16 0000 Signed Impressions: Service Date/Time: Tuesday, November 22, 2016 15:09 - CONCLUSION: 1. Moderate to severe spinal stenosis at L4-5. 2. There are degenerative changes throughout the remainder of the lumbar spine. 3. The infrarenal aorta is at the upper limits of normal in size at 3 cm. 4. No acute fracture identified. Urbano Freed MD Cervical Spine CT 11/22/16 0000 Signed Impressions: Service Date/Time: Tuesday, November 22, 2016 15:04 - CONCLUSION: Degenerative changes, otherwise negative. Avtar Freed MD FACR Brain MRI 11/22/16 Signed Impressions: Service Date/Time: Wednesday, November 23, 2016 15:07 - CONCLUSION: 1. No acute infarct or other acute intracranial abnormality. 2. Chronic white matter changes. 3. Numerous small scattered foci of old hemosiderin deposition as above, could be related to remote trauma or chronic microvascular hemorrhage. Harley Greene MD Physical Exam HEENT: Normocephalic; atraumatic; no jaundice. CHEST: CTA, diminished CARDIAC: RRR ABDOMEN: Soft, nondistended, nontender; no hepatosplenomegaly; bowel sounds are present in all four quadrants. EXTREMITIES: No clubbing, cyanosis, or edema. SKIN: Normal; no rash; no jaundice. WATER TESTER: Alert and oriented times three. Right sided weakness Assessment and Plan Plan ASSESSMENT: - Dysphagia, likely due to proximal esophageal stricture. He has long hx of esophageal strictures and has had multiple dilatations in the past- last about 4 years ago. He started having occasional symptoms about 2 years ago with worsening over the past several months. Solids, even pureed diet seems to get caught in upper esophagus. PPI. Plan is for EGD on , once he has been off of his plavix for several days. - Anemia. Mild. 12.2/36.0. - GERD. PPI. - Sz D/O, Hx CVA, hyperlipidemia,hypothyroidism, anxiety per primary PLAN: - Plan for EGD +/- Dilatation tomorrow - NPO after MN tonight - Obtain consents - PPI - Hold Plavix - Supportive care - Further recommendations to follow based on results of above - Pt seen and examined by Dr. Palafox and myself and this note is written on his behalf Velma Bell Nov 27, 2016 15:15
[2016-11-27] MEDS: ATORVASTATIN 40 MG TAB PO SCH (20:46)
[2016-11-28] VITALS (9 sets, daily range): BP systolic 135–171; BP diastolic 69–82; PULSE 52–87; RESP 18–20; TEMP 96.4–98; O2SAT 95–100
[2016-11-28] MEDS: LOW DOSE INSULIN NOVOLIN REGULAR SUPPLEMENTAL SCALE SQ SCH ×5 (02:24→21:00)
[2016-11-28] MEDS: CHLORHEXIDINE GLUCONATE 2 % 1 PACK (2 CLOTHS) TOP SCH (03:14)
[2016-11-28] MEDS: PANTOPRAZOLE SOD 40 MG DELAYED RELEASE TAB PO SCH ×2 (06:00→16:35)
[2016-11-28] MEDS: BRIMONIDINE TARTRATE 0.15% OPHT SOLN 5 ML BTL EACH EYE SCH ×3 (06:05→21:36)
[2016-11-28] MEDS: MINOCYCLINE HCL 50 MG CAP PO SCH ×2 (09:00→21:35)
[2016-11-28] MEDS: PRIMIDONE 250 MG TAB PO SCH ×3 (09:00→17:48)
[2016-11-28] MEDS: CYCLOBENZAPRINE HCL 10 MG TAB PO SCH ×3 (09:00→17:48)
[2016-11-28] MEDS ORDERED: PROPOFOL 200 MG/20 ML AMP IV ONE (10:20)
[2016-11-28] MEDS ORDERED: DO NOT ADM ANY ANTICOAGULANT DRUGS PRN (11:00)
--- NOTE | 2016-11-28 11:10 | HHI.GIFU ---
Subjective Remarks Immediate postop note: EGD with esophageal dilatation over guidewire with biopsy Indication: esophageal stricture, dysphagia Meds: MAC Findings: Esophagus: Upper esophageal tight stricture, lower esophageal tight stricture. Dilated with 10, 11, 12, 12.8, and 14mm savary dilators over guidewire. Stomach: mild gastritis, biopsy taken Duodenum: normal After dilatation there was small amount of blood at upper and lower stricture, but not excessive. Objective Vitals I&O Vital Signs Date Time Temp Pulse Resp B/P Pulse Ox O2 Delivery O2 Flow Rate FiO2 11/28/16 09:33 97.3 87 20 138/76 96 11/28/16 08:08 97.3 87 20 138/76 96 11/28/16 04:00 97.5 84 18 141/69 95 11/28/16 00:00 98.0 52 20 140/70 100 11/27/16 20:00 97.4 94 22 141/75 97 11/27/16 16:00 96.8 83 19 116/68 100 11/27/16 12:00 96.9 74 19 107/64 98 I/O 11/27/16 11/27/16 11/27/16 11/28/16 11/28/16 11/28/16 07:00 15:00 23:00 07:00 15:00 23:00 Intake Total 942 ml Output Total 450 ml 625 ml Balance 492 ml -625 ml Intake Oral 320 ml IV Total 622 ml Output Urine Total 450 ml 625 ml # Voids 2 1 # Bowel Movements 0 1 Laboratory Date/Time Procedure Status Source Growth 11/24/16 10:15 Urine Culture - Final Complete Urine Catheterized Urine NO GROWTH IN 48 HOURS. Physical Exam HEENT: Normocephalic; atraumatic; no jaundice. CHEST: CTA, diminished CARDIAC: RRR ABDOMEN: Soft, nondistended, nontender; no hepatosplenomegaly; bowel sounds are present in all four quadrants. EXTREMITIES: No clubbing, cyanosis, or edema. SKIN: Normal; no rash; no jaundice. 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 Right sided weakness Assessment and Plan Plan ASSESSMENT: - Dysphagia, likely due to proximal esophageal stricture. He has long hx of esophageal strictures and has had multiple dilatations in the past- last about 4 years ago. He started having occasional symptoms about 2 years ago with worsening over the past several months. Solids, even pureed diet seems to get caught in upper esophagus. PPI. Plan is for EGD on , once he has been off of his plavix for several days. - Anemia. Mild. 12.2/36.0. - GERD. PPI. - Sz D/O, Hx CVA, hyperlipidemia,hypothyroidism, anxiety per primary - EGD with dilatation and biopsy Pt has two tight strictures upper and lower esophagus. dilated to 14mm. No apparent complication Gastritis, await biopsy result PLAN: - full liquid diet today then regular diet tomorrow - Hold Plavix one more day then restart if no clinical bleeding - Maalox 30cc po now - Protonix 40mg po now and bid - Supportive care Aneudy Palafox MD Nov 28, 2016 11:10
[2016-11-28] MEDS ORDERED: PANTOPRAZOLE SOD 40 MG DELAYED RELEASE TAB PO ONE (11:15)
[2016-11-28] MEDS ORDERED: ALUMINUM/MAGNESIUM/SIMETH 30 ML CUP PO ONE (11:15)
[2016-11-28] MEDS: TIMOLOL MALEATE 0.25% OPHT SOLN 5 ML BTL EACH EYE SCH ×2 (11:42→21:00)
[2016-11-28] MEDS: METOPROLOL TARTRATE 50 MG TAB PO SCH ×2 (11:45→21:00)
[2016-11-28] MEDS: levETIRAcetam 500 MG TAB PO SCH ×2 (11:45→21:35)
[2016-11-28] MEDS: DOCUSATE SODIUM 50 MG/SENNA 8.6 MG TAB PO SCH ×2 (11:46→21:34)
[2016-11-28] MEDS: CELECOXIB 100 MG CAP PO SCH ×2 (11:46→21:34)
[2016-11-28] MEDS: ASPIRIN 81 MG CHEW TAB CHEW SCH (11:47)
[2016-11-28] MEDS: SODIUM CHLORIDE 0.9% FLUSH 10 ML FLUSH IV FLUSH SCH ×2 (11:47→21:35)
[2016-11-28] MEDS: ISOSORBIDE MONONITRATE 30 MG TAB PO SCH (11:47)
[2016-11-28] MEDS: metFORMIN HCL 500 MG TAB PO SCH ×2 (11:47→17:48)
--- NOTE | 2016-11-28 14:40 | HHI.PR ---
Subjective Remarks Pt had EGD with dilation today which noted upper esophageal tight stricture, lower esophageal tight stricture s/p dilation with 10, 11, 12, 12.8, and 14mm savary dilators over guidewire, mild gastritis, and after dilatation there was small amount of blood at upper and lower stricture, but not excessive. Pt tolerating full liquid diet. Objective Vitals Vital Signs Date Time Temp Pulse Resp B/P Pulse Ox O2 Delivery O2 Flow Rate FiO2 11/28/16 12:10 96.4 84 20 171/78 97 11/28/16 11:09 87.0 87 16 109/65 99 11/28/16 10:59 87 16 115/81 99 11/28/16 10:53 98.1 86 18 123/68 100 11/28/16 09:33 97.3 87 20 138/76 96 11/28/16 08:08 97.3 87 20 138/76 96 11/28/16 04:00 97.5 84 18 141/69 95 11/28/16 00:00 98.0 52 20 140/70 100 11/27/16 20:00 97.4 94 22 141/75 97 11/27/16 16:00 96.8 83 19 116/68 100 11/27/16 11/27/16 11/28/16 15:00 23:00 07:00 Output Total 625 ml Balance -625 ml Output Urine Total 625 ml # Voids 2 1 # Bowel Movements 1 Result Diagram: 11/24/16 1045 11/26/16 0631 Imaging Last Impressions Chest X-Ray 11/24/16 0600 Signed Impressions: Service Date/Time: Thursday, November 24, 2016 02:46 - CONCLUSION: Decreased left lung base atelectasis. No other acute cardiopulmonary disease identified. Miguel Angel Arizmendi MD Head CT 11/22/16 1347 Signed Impressions: Service Date/Time: Tuesday, November 22, 2016 15:02 - CONCLUSION: 1. Mild cerebral atrophy and periventricular/subcortical white matter small vessel ischemic changes bilaterally. 2. No acute infarct, acute hemorrhage, mass effect or extra-axial fluid collections. Rojelio mSith MD Thoracic Spine CT 11/22/16 0000 Signed Impressions: Service Date/Time: Tuesday, November 22, 2016 15:09 - CONCLUSION: 1. Mildly displaced posterior right fifth, sixth, eighth, and ninth rib fractures. No definitive pneumothorax an individual is portions of lung. Very subtle right-sided hemothorax. 2. No evidence for vertebral compression fracture or subluxation. Royal Martinez MD Lumbar Spine CT 11/22/16 0000 Signed Impressions: Service Date/Time: Tuesday, November 22, 2016 15:09 - CONCLUSION: 1. Moderate to severe spinal stenosis at L4-5. 2. There are degenerative changes throughout the remainder of the lumbar spine. 3. The infrarenal aorta is at the upper limits of normal in size at 3 cm. 4. No acute fracture identified. Urbano Freed MD Cervical Spine CT 11/22/16 0000 Signed Impressions: Service Date/Time: Tuesday, November 22, 2016 15:04 - CONCLUSION: Degenerative changes, otherwise negative. Avtar Freed MD FACR Brain MRI 11/22/16 0000 Signed Impressions: Service Date/Time: Wednesday, November 23, 2016 15:07 - CONCLUSION: 1. No acute infarct or other acute intracranial abnormality. 2. Chronic white matter changes. 3. Numerous small scattered foci of old hemosiderin deposition as above, could be related to remote trauma or chronic microvascular hemorrhage. 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 His blood sugar on route was 285 per the ED notes. - Pt was admitted to the ICU under the care of the intensivists. - Neurology was consulted - Head CT (11/22/16) --> Mild cerebral atrophy and periventricular/subcortical white matter small vessel ischemic changes bilaterally. No acute infarct, acute hemorrhage, mass effect or extra- axial fluid collections. - MRI (11/23/16) --> No acute infarct or other acute intracranial abnormality. Chronic white matter changes. Numerous small scattered foci of old hemosiderin deposition as above, could be related to remote trauma or chronic microvascular hemorrhage. - Pt started on Keppra 500mg Q12H - Pt takes Mysolin 250mg TID as an outpt - Pt was noted to have mildly displaced posterior right fifth, sixth, eighth, and ninth rib fractures. No definitive pneumothorax - EEG (11/24/16) --> Mild slowing may be due to somnolent state versus a very mild encephalopathic process but no evidence of epileptic activity. Clinical correlation. - Pt still having paresthesia in the right hand and some weakness which has been going on since his previous CVA. - PT/OT - Cont. BB/ASA/Statin, Plavix on hold for EGD - Flexeril TID - [place] 5/325 Q6H PRN and Celebrex 100mg BID for pain control. Pain from his rib fractures is better controlled - Encourage IS use, low grade fever on 11/26 likely related to atelectasis. - Urine culture with no growth x 2 days. - CXR (11/27) --> No significant change, minimal bilateral atelectasis again noted. - Pts weight is noted to be increasing in the records, IVF stopped on 11/27. - Encouraged oral intake. Glucerna with each meal and at bedtime. - Weigh pt daily on bedside stand up scale. - Pt will need SNF placement at the end of this hospitalization and may need LTC placement after that. - DVT prophylaxis (2) Hyperglycemia Status: Acute Plan: - Patient was placed on insulin infusion on 11/23 secondary to persistent hyperglycemia. Anion gap closed on 11/24 and he was transitioned to subcutaneous Levemir and NovoLog SSI. - community nutrition educator consultation initiated. - Hgb A1C 12.1 - Blood sugars are better controlled currently - Pt started on Metformin 500mg BID on 11/26 and Levemir stopped. Blood sugars are still running slightly high in the 180-200 during the day. He may need some adjustments to the Metformin dose going forward. (3) Paresthesia Status: Chronic Plan: - See above. (4) Dysphagia Status: Chronic Plan: - Pt reports issues with dysphagia which has been a problem in the past and he has hx of esophageal ring. - Last EGD with dilation was on 06/06/2011 --> an esophageal ring was found in the proximal esophagus s/p dilation to 15-16mm, esophagitis at the GE junction. - GI following. - Plavix was held for EGD - Pt had EGD with dilation today which noted upper esophageal tight stricture, lower esophageal tight stricture s/p dilation with 10, 11, 12, 12.8, and 14mm Savary dilators over guidewire, mild gastritis, and after dilatation there was small amount of blood at upper and lower stricture, but not excessive. - Pt tolerating full liquid diet. - pt cleared to resume Plavix tomorrow per GI and he will need repeat EGD with dilation in a few weeks. (5) Hypothyroidism Status: Chronic (6) GERD (gastroesophageal reflux disease) Status: Chronic Plan: - PPI (7) Dyslipidemia Status: Chronic Plan: - Cont. Lipitor (8) Anxiety Status: Acute Assessment and Plan Patient examined. Assessment and plan formulated with Cynthia Uribe PA-C. I agree with the above. Cynthia Uribe Nov 28, 2016 14:40 Papo Rojas DO Nov 29, 2016 23:39
[2016-11-28] MEDS: ALPRAZolam 0.5 MG TAB PO PRN (21:34)
[2016-11-28] MEDS: ATORVASTATIN 40 MG TAB PO SCH (21:35)
[2016-11-29] VITALS (7 sets, daily range): BP systolic 110–144; BP diastolic 67–84; PULSE 83–88; RESP 18; TEMP 97.3–98.1; O2SAT 94–96
[2016-11-29] MEDS: CHLORHEXIDINE GLUCONATE 2 % 1 PACK (2 CLOTHS) TOP SCH (00:52)
[2016-11-29] MEDS: LOW DOSE INSULIN NOVOLIN REGULAR SUPPLEMENTAL SCALE SQ SCH ×5 (02:25→21:00)
[2016-11-29] MEDS: PANTOPRAZOLE SOD 40 MG DELAYED RELEASE TAB PO SCH ×2 (05:35→16:12)
[2016-11-29] MEDS: BRIMONIDINE TARTRATE 0.15% OPHT SOLN 5 ML BTL EACH EYE SCH ×3 (05:35→21:24)
[2016-11-29] MEDS: levETIRAcetam 500 MG TAB PO SCH ×2 (08:47→21:05)
[2016-11-29] MEDS: METOPROLOL TARTRATE 50 MG TAB PO SCH ×2 (08:47→21:05)
[2016-11-29] MEDS: PRIMIDONE 250 MG TAB PO SCH ×3 (08:47→18:10)
[2016-11-29] MEDS: ISOSORBIDE MONONITRATE 30 MG TAB PO SCH (08:47)
[2016-11-29] MEDS: DOCUSATE SODIUM 50 MG/SENNA 8.6 MG TAB PO SCH ×2 (08:47→21:05)
[2016-11-29] MEDS: metFORMIN HCL 500 MG TAB PO SCH ×2 (08:47→18:10)
[2016-11-29] MEDS: ASPIRIN 81 MG CHEW TAB CHEW SCH (08:47)
[2016-11-29] MEDS: CELECOXIB 100 MG CAP PO SCH ×2 (08:47→21:05)
[2016-11-29] MEDS: MINOCYCLINE HCL 50 MG CAP PO SCH ×2 (08:47→21:05)
[2016-11-29] MEDS: CYCLOBENZAPRINE HCL 10 MG TAB PO SCH ×4 (08:47→18:09)
[2016-11-29] MEDS: SODIUM CHLORIDE 0.9% FLUSH 10 ML FLUSH IV FLUSH SCH ×2 (09:00→21:06)
--- NOTE | 2016-11-29 11:50 | MP ---
cc: ERIBERTO SUN M.D., HAROLD H. MD BIGA, LOUIS M. MD DATE OF SURGERY: 11/28/2016 PROCEDURE Esophagogastroduodenoscopy with esophageal dilatation over a guidewire with biopsy. INDICATION Esophageal stricture with dysphagia. DETAILS OF PROCEDURE After informed consent was obtained, the patient was placed in the left side down position. He was sedated by the Anesthesia service. After adequate sedation was achieved the Olympus video gastroscope was inserted in the oropharynx and advanced to the upper esophagus where further advancement was prevented by a tight stricture there. There was some phlegm in the surrounding area and this was suctioned out. The scope was reinserted to the same site and a guidewire was passed gently through the opening and down into the stomach. Over the guidewire a 10 mm Savary dilator was passed down through the stricture. It was removed and 11 mm and 12 mm dilators were passed in sequence. The guidewire and dilator were then removed and the scope was reinserted. It was able to pass down through the upper stricture and reaching the distal esophagus where there was a second stricture that was also obstructing and the scope would not pass. The guidewire was again advanced through the opening carefully along the greater curvature. The scope was then withdrawn leaving the guidewire in place. Over the guidewire the 10 mm, 11 mm and 12 mm dilators were again passed. The dilator and guidewire were then removed and the scope was reinserted. The scope was advanced down through the upper and lower strictured sites. There as a minimal amount of bleeding there. The scope was advanced down through the stomach into the descending duodenum. It was then withdrawn slowly examining the mucosal surfaces carefully. A retroflex exam was performed in the fundus and cardia of the stomach. The scope was then straightened and the guidewire was again left in place as the scope was slowly withdrawn. Over the guidewire a 12.8 mm dilator and a 14 mm dilator were then passed down to both strictures in sequence. The dilator and guidewire were removed. The scope was reinserted into the esophagus and down through the dilated strictures. The scope was then advanced down to the gastric antrum and a biopsy was obtained of mild gastritis. The scope was then withdrawn slowly and examining the strictured sites. There was no evidence of complication. There was a small amount of blood at the upper and lower stricture but it did not seem to be excessive and there was no active bleeding. The scope was then withdrawn and the procedure was terminated. He was returned to the recovery area in good condition. FINDINGS 1. The esophagus had two strictures, one at the upper esophageal sphincter and one at the lower esophageal sphincter. Both were quite tight and prevented passage of the scope. The two strictures were both dilated with Savary dilators up to 14 mm as described above. 2. In the stomach there was mild gastritis. A biopsy was taken to evaluated for H. pylori. 3. The duodenum was normal. 4. After the dilatation there was a small amount of blood at the upper and lower stricture but not excessive and no evidence of complication. IMPRESSION 1. Two esophageal strictures, one at the proximal esophagus and one at the distal esophagus, both dilated to 14 mm. 2. Mild gastritis. 3. GERD. PLAN 1. He may take a full liquid diet today and then regular diet tomorrow if he tolerates it well. 2. Hold Plavix one more day and then restart if no clinical bleeding. 3. Maalox 30 cc will be given now. 4. Protonix 40 mg p.o. now and b.i.d. 5. Supportive care while he is in the hospital. 6. After discharge he should follow-up with Dr. Sun in the office and plan for another dilatation in about three weeks. Aneudy Palafox MD [facility]/ /11:31 AM /11:33 AM
--- NOTE | 2016-11-29 14:06 | HHI.PR ---
Subjective Remarks No new complaints. Pt is tolerating PO intake. Objective Vitals Vital Signs Date Time Temp Pulse Resp B/P Pulse Ox O2 Delivery O2 Flow Rate FiO2 11/29/16 11:38 97.8 88 18 126/73 94 11/29/16 10:04 95 11/29/16 07:40 97.4 87 18 144/77 95 11/29/16 04:00 97.7 88 18 133/75 95 11/29/16 00:00 98.1 83 18 134/75 96 11/28/16 21:29 97 21 11/28/16 20:00 97.4 87 18 144/82 97 11/28/16 16:14 98 11/28/16 16:00 96.9 81 20 135/73 98 11/28/16 11/28/16 11/29/16 15:00 23:00 07:00 Intake Total 990 ml 0 ml Output Total 300 ml 250 ml Balance 690 ml -250 ml Intake Oral 240 ml IV Total 0 ml Other 750 ml Output Urine Total 300 ml 250 ml # Voids 1 Result Diagram: 11/26/16 0631 Imaging Last Impressions Chest X-Ray 11/24/16 0600 Signed Impressions: Service Date/Time: Thursday, November 24, 2016 02:46 - CONCLUSION: Decreased left lung base atelectasis. No other acute cardiopulmonary disease identified. Miguel Angel Arizmendi MD Head CT 11/22/16 1347 Signed Impressions: Service Date/Time: Tuesday, November 22, 2016 15:02 - CONCLUSION: 1. Mild cerebral atrophy and periventricular/subcortical white matter small vessel ischemic changes bilaterally. 2. No acute infarct, acute hemorrhage, mass effect or extra-axial fluid collections. Rojelio Smith MD Thoracic Spine CT 11/22/16 0000 Signed Impressions: Service Date/Time: Tuesday, November 22, 2016 15:09 - CONCLUSION: 1. Mildly displaced posterior right fifth, sixth, eighth, and ninth rib fractures. No definitive pneumothorax an individual is portions of lung. Very subtle right-sided hemothorax. 2. No evidence for vertebral compression fracture or subluxation. Royal Martinez MD Lumbar Spine CT 11/22/16 0000 Signed Impressions: Service Date/Time: Tuesday, November 22, 2016 15:09 - CONCLUSION: 1. Moderate to severe spinal stenosis at L4-5. 2. There are degenerative changes throughout the remainder of the lumbar spine. 3. The infrarenal aorta is at the upper limits of normal in size at 3 cm. 4. No acute fracture identified. Urbano Freed MD Cervical Spine CT 11/22/16 0000 Signed Impressions: Service Date/Time: Tuesday, November 22, 2016 15:04 - CONCLUSION: Degenerative changes, otherwise negative. Avtar Freed MD FACR Brain MRI 11/22/16 0000 Signed Impressions: Service Date/Time: Wednesday, November 23, 2016 15:07 - CONCLUSION: 1. No acute infarct or other acute intracranial abnormality. 2. Chronic white matter changes. 3. Numerous small scattered foci of old hemosiderin deposition as above, could be related to remote trauma or chronic microvascular hemorrhage. 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 - Last EGD with dilation was on 06/06/2011 --> an esophageal ring was found in the proximal esophagus s/p dilation to 15-16mm, esophagitis at the GE junction. - GI following. - Plavix was held for EGD - Pt had EGD with dilation today which noted upper esophageal tight stricture, lower esophageal tight stricture s/p dilation with 10, 11, 12, 12.8, and 14mm Savary dilators over guidewire, mild gastritis, and after dilatation there was small amount of blood at upper and lower stricture, but not excessive. - Pt tolerating full liquid diet. - resume plavix - repeat labs in AM - if pt remains stable, will d/c to SNF 11/30 (2) Seizure as late effect of cerebrovascular accident (CVA) Status: Acute Plan: - Pt is a 81 y/o male with hx of recent hx of a CVA in the left opal who was admitted after a fall at home and noted seizure like activity in the right upper extremity. His blood sugar on route was 285 per the ED notes. - Pt was admitted to the ICU under the care of the intensivists. - Neurology was consulted - Head CT (11/22/16) --> Mild cerebral atrophy and periventricular/subcortical white matter small vessel ischemic changes bilaterally. No acute infarct, acute hemorrhage, mass effect or extra- axial fluid collections. - MRI (11/23/16) --> No acute infarct or other acute intracranial abnormality. Chronic white matter changes. Numerous small scattered foci of old hemosiderin deposition as above, could be related to remote trauma or chronic microvascular hemorrhage. - Pt started on Keppra 500mg Q12H - Pt takes Mysolin 250mg TID as an outpt - Pt was noted to have mildly displaced posterior right fifth, sixth, eighth, and ninth rib fractures. No definitive pneumothorax - EEG (11/24/16) --> Mild slowing may be due to somnolent state versus a very mild encephalopathic process but no evidence of epileptic activity. Clinical correlation. - Pt still having paresthesia in the right hand and some weakness which has been going on since his previous CVA. - PT/OT - Cont. BB/ASA/Statin, Plavix on hold for EGD - Flexeril TID - [place] 5/325 Q6H PRN and Celebrex 100mg BID for pain control. Pain from his rib fractures is better controlled - Encourage IS use, low grade fever on 11/26 likely related to atelectasis. - Urine culture with no growth x 2 days. - CXR (11/27) --> No significant change, minimal bilateral atelectasis again noted. - Pts weight is noted to be increasing in the records, IVF stopped on 11/27. - Encouraged oral intake. Glucerna with each meal and at bedtime. - Weigh pt daily on bedside stand up scale. - Pt will need SNF placement at the end of this hospitalization and may need LTC placement after that. - DVT prophylaxis (3) Hyperglycemia Status: Acute Plan: - Patient was placed on insulin infusion on 11/23 secondary to persistent hyperglycemia. Anion gap closed on 11/24 and he was transitioned to subcutaneous Levemir and NovoLog SSI. - transfusion aide consultation initiated. - Hgb A1C 12.1 - Blood sugars are better controlled currently - Pt started on Metformin 500mg BID on 11/26 and Levemir stopped. Blood sugars are still running slightly high in the 180-200 during the day. He may need some adjustments to the Metformin dose going forward. (4) Paresthesia Status: Chronic Plan: - See above. (5) Hypothyroidism Status: Chronic (6) GERD (gastroesophageal reflux disease) Status: Chronic Plan: - PPI (7) Dyslipidemia Status: Chronic Plan: - Cont. Lipitor (8) Anxiety Status: Acute Papo Rojas DO Nov 29, 2016 14:06
--- NOTE | 2016-11-29 14:19 | HHI.GIFU ---
Subjective Remarks Pt OOB to bathroom, says he thinks he missed the toilet. Denies bleeding. Says he had no problems eating oatmeal at breakfast. Objective Vitals I&O Vital Signs Date Time Temp Pulse Resp B/P Pulse Ox O2 Delivery O2 Flow Rate FiO2 11/29/16 11:38 97.8 88 18 126/73 94 11/29/16 10:04 95 11/29/16 07:40 97.4 87 18 144/77 95 11/29/16 04:00 97.7 88 18 133/75 95 11/29/16 00:00 98.1 83 18 134/75 96 11/28/16 21:29 97 21 11/28/16 20:00 97.4 87 18 144/82 97 11/28/16 16:14 98 11/28/16 16:00 96.9 81 20 135/73 98 I/O 11/28/16 11/28/16 11/28/16 11/29/16 11/29/16 11/29/16 07:00 15:00 23:00 07:00 15:00 23:00 Intake Total 990 ml 0 ml Output Total 300 ml 250 ml Balance 690 ml -250 ml Intake Oral 240 ml IV Total 0 ml Other 750 ml Output Urine Total 300 ml 250 ml # Voids 1 1 Imaging Last Impressions Chest X-Ray 11/27/16 0600 Signed Impressions: Service Date/Time: Sunday, November 27, 2016 06:09 - CONCLUSION: No significant change. Minimal bibasilar atelectasis again noted. Harley Greene MD Head CT 11/22/16 1347 Signed Impressions: Service Date/Time: Tuesday, November 22, 2016 15:02 - CONCLUSION: 1. Mild cerebral atrophy and periventricular/subcortical white matter small vessel ischemic changes bilaterally. 2. No acute infarct, acute hemorrhage, mass effect or extra-axial fluid collections. Rojelio Smith MD Thoracic Spine CT 11/22/16 0000 Signed Impressions: Service Date/Time: Tuesday, November 22, 2016 15:09 - CONCLUSION: 1. Mildly displaced posterior right fifth, sixth, eighth, and ninth rib fractures. No definitive pneumothorax an individual is portions of lung. Very subtle right-sided hemothorax. 2. No evidence for vertebral compression fracture or subluxation. Royal Martinez MD Lumbar Spine CT 11/22/16 0000 Signed Impressions: Service Date/Time: Tuesday, November 22, 2016 15:09 - CONCLUSION: 1. Moderate to severe spinal stenosis at L4-5. 2. There are degenerative changes throughout the remainder of the lumbar spine. 3. The infrarenal aorta is at the upper limits of normal in size at 3 cm. 4. No acute fracture identified. Urbano Freed MD Cervical Spine CT 11/22/16 0000 Signed Impressions: Service Date/Time: Tuesday, November 22, 2016 15:04 - CONCLUSION: Degenerative changes, otherwise negative. Avtar Freed MD FACR Brain MRI 11/22/16 0000 Signed Impressions: Service Date/Time: Wednesday, November 23, 2016 15:07 - CONCLUSION: 1. No acute infarct or other acute intracranial abnormality. 2. Chronic white matter changes. 3. Numerous small scattered foci of old hemosiderin deposition as above, could be related to remote trauma or chronic microvascular hemorrhage. Harley Greene MD Physical Exam HEENT: Normocephalic; atraumatic; no jaundice. CHEST: CTA, diminished CARDIAC: RRR ABDOMEN: Soft, nondistended, nontender; no hepatosplenomegaly; bowel sounds are present in all four quadrants. EXTREMITIES: No clubbing, cyanosis, or edema. SKIN: Normal; no rash; no jaundice. 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 Right sided weakness Assessment and Plan Plan ASSESSMENT: - Dysphagia, likely due to proximal esophageal stricture. He has long hx of esophageal strictures and has had multiple dilatations in the past- last about 4 years ago. He started having occasional symptoms about 2 years ago with worsening over the past several months. Solids, even pureed diet seems to get caught in upper esophagus. PPI. s/p EGD w/ dilation 11-28-16--> mild gastritis, 2 esophageal strictures, GERD. - Anemia. Mild. 12.2/36.0. - GERD. PPI. - Sz D/O, Hx CVA, hyperlipidemia,hypothyroidism, anxiety per primary PLAN: - regular diet - ok to resume plavix - cont Protonix 40mg po bid - Supportive care This pt seen by myself and Dr Palafox and this note is written on his behalf Velma Bell Nov 29, 2016 14:19
[2016-11-29] MEDS: TIMOLOL MALEATE 0.25% OPHT SOLN 5 ML BTL EACH EYE SCH ×2 (14:54→21:07)
[2016-11-29] MEDS: CLOPIDOGREL 75 MG TAB PO SCH (14:55)
[2016-11-29] MEDS: ACETAMINOPHEN/HYDROcodone 325 MG/5 MG TAB PO PRN (21:05)
[2016-11-29] MEDS: ATORVASTATIN 40 MG TAB PO SCH (21:06)
[2016-11-29] MEDS: ALPRAZolam 0.5 MG TAB PO PRN (21:06)
[2016-11-30] VITALS: BP 132/82; PULSE 80; RESP 18; TEMP 97.6; O2SAT 97
[2016-11-30] MEDS: LOW DOSE INSULIN NOVOLIN REGULAR SUPPLEMENTAL SCALE SQ SCH ×5 (03:00→20:53)
[2016-11-30 04:00] VITALS: BP 139/78; PULSE 75; RESP 18; TEMP 97.9; O2SAT 100
[2016-11-30] MEDS: CHLORHEXIDINE GLUCONATE 2 % 1 PACK (2 CLOTHS) TOP SCH (04:00)
[2016-11-30] MEDS: BRIMONIDINE TARTRATE 0.15% OPHT SOLN 5 ML BTL EACH EYE SCH ×3 (06:00→20:42)
[2016-11-30] MEDS: PANTOPRAZOLE SOD 40 MG DELAYED RELEASE TAB PO SCH ×2 (06:29→16:13)
[2016-11-30 08:00] VITALS: BP 139/76; PULSE 65; RESP 17; TEMP 97.7; O2SAT 98
[2016-11-30] MEDS: ASPIRIN 81 MG CHEW TAB CHEW SCH (08:27)
[2016-11-30] MEDS: PRIMIDONE 250 MG TAB PO SCH ×3 (08:27→17:44)
[2016-11-30] MEDS: CELECOXIB 100 MG CAP PO SCH ×2 (08:27→20:39)
[2016-11-30] MEDS: metFORMIN HCL 500 MG TAB PO SCH ×2 (08:28→17:44)
[2016-11-30] MEDS: levETIRAcetam 500 MG TAB PO SCH ×2 (08:28→20:39)
[2016-11-30] MEDS: ISOSORBIDE MONONITRATE 30 MG TAB PO SCH (08:28)
[2016-11-30] MEDS: METOPROLOL TARTRATE 50 MG TAB PO SCH ×2 (08:28→20:39)
[2016-11-30] MEDS: ACETAMINOPHEN/HYDROcodone 325 MG/5 MG TAB PO PRN ×2 (08:28→21:11)
[2016-11-30] MEDS: CLOPIDOGREL 75 MG TAB PO SCH (08:28)
[2016-11-30] MEDS: SODIUM CHLORIDE 0.9% FLUSH 10 ML FLUSH IV FLUSH SCH ×2 (08:29→20:41)
[2016-11-30] MEDS: MINOCYCLINE HCL 50 MG CAP PO SCH ×2 (08:29→20:41)
[2016-11-30] MEDS: TIMOLOL MALEATE 0.25% OPHT SOLN 5 ML BTL EACH EYE SCH ×2 (08:29→20:41)
[2016-11-30] MEDS: CYCLOBENZAPRINE HCL 10 MG TAB PO SCH ×3 (09:00→17:44)
[2016-11-30 09:20] LABS: MEAN CELL VOLUME 92.7 FL (80.0-100.0); MEAN CORPUSCULAR HEMOGLOBIN 32.2 PG (27.0-34.0); MEAN CORPUSCULAR HGB CONC 34.7 % (32.0-36.0); PLATELET COUNT 161 TH/MM3 (150-450); RED BLOOD COUNT 3.67 MIL/MM3 (4.50-5.90); RED CELL DISTRIBUTION WIDTH 13.2 % (11.6-17.2); WHITE BLOOD COUNT 6.1 TH/MM3 (4.0-11.0)
[2016-11-30 09:32] LABS: HEMO FLAGS AUTO DIFF
[2016-11-30 09:58] LABS: MAGNESIUM 1.7 MG/DL (1.5-2.5)
[2016-11-30 10:01] LABS: POTASSIUM 4.2 MEQ/L (3.5-5.1)
[2016-11-30 10:04] LABS: BANDS 1 % (0-6); EOSINOPHILS 2 % (0-4); NEUTROPHIL # MANUAL DIFF 4.8 TH/MM3 (1.8-7.7); POLYS (SEG NEUTROPHILS) 77 % (16-70); WBC DIFF SAMPLE 100
[2016-11-30 10:05] LABS: SCAN/DIFF FINAL DIFF MANUAL
[2016-11-30] MEDS: BETAMETHASONE/CLOTRIMAZOLE CREAM 15 GM TOPICAL SCH ×3 (11:30→17:44)
[2016-11-30 12:26] VITALS: BP 128/76; PULSE 79; RESP 16; TEMP 97.9; O2SAT 100
[2016-11-30] MEDS: DOCUSATE SODIUM 50 MG/SENNA 8.6 MG TAB PO SCH ×2 (13:01→20:39)
[2016-11-30] MEDS ORDERED: LEVE500 PO (15:32)
[2016-11-30] MEDS ORDERED: CYCL1TAB29 PO (15:32)
[2016-11-30] MEDS ORDERED: HYDR-3516 PO (15:32)
[2016-11-30] MEDS ORDERED: LOTR15T TOPICAL (15:32)
[2016-11-30] MEDS ORDERED: ALPR0.5T3 PO (15:32)
[2016-11-30] MEDS ORDERED: CELE100C PO (15:32)
--- NOTE | 2016-11-30 15:39 | HHI.DS ---
Discharge Summary Admission Date Nov 22, 2016 at 17:12 Discharge Date: Nov 30, 2016 Admitting Diagnosis new onset seizure, fall, dehydration (1) Rib fractures Diagnosis: Principal (2) Dysphagia Diagnosis: Principal (3) Seizure as late effect of cerebrovascular accident (CVA) Diagnosis: Principal (4) Hyperglycemia Diagnosis: Principal (5) Paresthesia Diagnosis: Secondary (6) Hypothyroidism Diagnosis: Secondary (7) GERD (gastroesophageal reflux disease) Diagnosis: Secondary (8) Dyslipidemia Diagnosis: Secondary (9) Anxiety Diagnosis: Secondary Consultants Dr. Miller, Neurology Dr. Palafox, GI Brief History 81-year-old male presents with history of fall last night at 8 PM. Patient was unable to get up from the floor after the fall. This morning his family found him and called EMS. As per EMS as they were pulling in they noticed that he started going into a generalized tonic-clonic seizure that started on his right upper extremity. Family did mention to the paramedics that he was seen at [place] emergency room yesterday for his right arm "twitching". His blood sugar was high and he was eventually discharged. His blood sugar on route was 285 as per the paramedics. Currently patient is awake and talking. He has had previous stroke couple months ago. He was tachycardic upon arrival. 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 - Last EGD with dilation was on 06/06/2011 --> an esophageal ring was found in the proximal esophagus s/p dilation to 15-16mm, esophagitis at the GE junction. - GI following. - Plavix was held for EGD - Pt had EGD with dilation today which noted upper esophageal tight stricture, lower esophageal tight stricture s/p dilation with 10, 11, 12, 12.8, and 14mm Savary dilators over guidewire, mild gastritis, and after dilatation there was small amount of blood at upper and lower stricture, but not excessive. - pt tolerating solid diet. - resumed plavix 11/29/16 - discharge to SNF 12/01/16 - see orders (2) Seizure as late effect of cerebrovascular accident (CVA) Status: Acute Plan: - Pt is a 81 y/o male with hx of recent hx of a CVA in the left opal who was admitted after a fall at home and noted seizure like activity in the right upper extremity. His blood sugar on route was 285 per the ED notes. - Pt was admitted to the ICU under the care of the intensivists. - Neurology was consulted - Head CT (11/22/16) --> Mild cerebral atrophy and periventricular/subcortical white matter small vessel ischemic changes bilaterally. No acute infarct, acute hemorrhage, mass effect or extra- axial fluid collections. - MRI (11/23/16) --> No acute infarct or other acute intracranial abnormality. Chronic white matter changes. Numerous small scattered foci of old hemosiderin deposition as above, could be related to remote trauma or chronic microvascular hemorrhage. - Pt started on Keppra 500mg Q12H - Pt takes Mysolin 250mg TID as an outpt - Pt was noted to have mildly displaced posterior right fifth, sixth, eighth, and ninth rib fractures. No definitive pneumothorax - EEG (11/24/16) --> Mild slowing may be due to somnolent state versus a very mild encephalopathic process but no evidence of epileptic activity. Clinical correlation. - Pt still having paresthesia in the right hand and some weakness which has been going on since his previous CVA. - PT/OT - Cont. BB/ASA/Statin, Plavix on hold for EGD - Flexeril TID - Effie 5/325 Q6H PRN and Celebrex 100mg BID for pain control. Pain from his rib fractures is better controlled - Encourage IS use, low grade fever on 11/26 likely related to atelectasis. - Urine culture with no growth x 2 days. - CXR (11/27) --> No significant change, minimal bilateral atelectasis again noted. - Pts weight is noted to be increasing in the records, IVF stopped on 11/27. - Encouraged oral intake. Glucerna with each meal and at bedtime. - discharge to SNF (3) Hyperglycemia Status: Acute Plan: - Patient was placed on insulin infusion on 11/23 secondary to persistent hyperglycemia. Anion gap closed on 11/24 and he was transitioned to subcutaneous Levemir and NovoLog SSI. - simulation educator consultation initiated. - Hgb A1C 12.1 - Blood sugars are better controlled currently - Metformin, SSI (4) Paresthesia Status: Chronic Plan: - See above. (5) Hypothyroidism Status: Chronic (6) GERD (gastroesophageal reflux disease) Status: Chronic Plan: - PPI (7) Dyslipidemia Status: Chronic Plan: - Cont. Lipitor (8) Anxiety Status: Acute Pt Condition on Discharge: Stable Discharge Disposition: Discharge to SNF Discharge Instructions DIET: Follow Instructions for: Heart Healthy Diet Activities you can perform: Weight Bearing as Angelica Follow up Referrals: Gastroenterology - 4 Weeks with [facility] - 4 Weeks with Gretta Miller MD PCP Follow-up - [address] Cayden Tavarez New Medications: Betamethasone-Clotrimazole Topical (Lotrisone Topical) 1-0.05% Cream 1 APPLIC TOPICAL TID tinea Days 14 TUBE Celecoxib (Celebrex) 100 Mg Cap 100 MG PO BID Pt to recieve for 30 days, then stop rib fractures Days 30 CAP Hydrocodone-Acetaminophen (Hydrocodone-Acetaminophen) 5-325 mg Tab 1 TAB PO Q6H PRN pain #60 Ref 0 TAB Levetiracetam (Keppra) 500 Mg Tab 500 MG PO Q12HR seizure #60 Ref 0 TAB Continued Medications: Alprazolam (Alprazolam) 0.5 Mg Tab 0.5 MG PO Q8H PRN ANXIETY #30 Ref 0 TAB (This prescription has been renewed) Aspirin (Aspirin Low Dose) 81 Mg Chew 81 MG CHEW DAILY Ref 0 TAB Atorvastatin (Atorvastatin) 40 Mg Tab 40 MG PO HS Cholesterol Management #30 Ref 0 TAB Brimonidine Opth Drops (Alphagan P Opth Drops) 0.1% Soln 1 DROP EACH EYE Q8HR Intraocular pressure #1 Ref 0 BOTTLE Clopidogrel (Clopidogrel) 75 Mg Tab 75 MG PO DAILY Blood Clot Prevention #30 Ref 0 TAB Cyclobenzaprine (Flexeril) 10 Mg Tab 10 MG PO TID Muscle Spasm #30 Ref 0 TAB (This prescription has been renewed) Furosemide (Lasix) 20 Mg Tab 20 MG PO DAILY #30 Ref 0 TAB Isosorbide Mononitrate ER (Isosorbide Mononitrate ER) 30 Mg Jackeline 30 MG PO DAILY Prevent Chest Pain #30 Ref 0 TAB Metoprolol Tartrate (Metoprolol Tartrate) 50 Mg Tab 50 MG PO BID #60 Ref 0 TAB Minocycline (Minocycline) 50 Mg Cap 50 MG PO BID Mgmt Bacterial Infection Ref 0 CAP Pantoprazole (Pantoprazole) 40 Mg Tab 40 MG PO DAILY Reflux #30 Ref 0 TAB Primidone (Mysoline) 250 Mg Tab 250 MG PO TID Control Seizures #90 Ref 0 TAB Timolol Opth Drops (Betimol Opth Drops) 0.25 % Soln 1 DROP EACH EYE BID Glaucoma #1 Ref 0 BOTTLE Papo Rojas DO Nov 30, 2016 15:39
--- NOTE | 2016-11-30 15:56 | HHI.GIFU ---
Subjective Remarks States he is now swallowing fine, but could not eat the chicken for lunch because he does not have his bottom teeth and was not able to chew this. Objective Vitals I&O Vital Signs Date Time Temp Pulse Resp B/P Pulse Ox O2 Delivery O2 Flow Rate FiO2 11/30/16 12:26 97.9 79 16 128/76 100 11/30/16 09:28 17 11/30/16 08:00 Nasal Cannula 2.00 11/30/16 08:00 97.7 65 17 139/76 98 11/30/16 04:00 97.9 75 18 139/78 100 11/30/16 00:00 97.6 80 18 132/82 97 11/29/16 20:01 21 11/29/16 20:00 97.3 86 18 137/84 96 11/29/16 15:56 97.3 83 18 110/67 96 I/O 11/29/16 11/29/16 11/29/16 11/30/16 11/30/16 11/30/16 07:00 15:00 23:00 07:00 15:00 23:00 Intake Total 0 ml 120 ml Output Total 250 ml 200 ml Balance -250 ml -80 ml Intake Oral 120 ml IV Total 0 ml Output Urine Total 250 ml 200 ml # Voids 1 3 Laboratory Laboratory Tests Test 11/30/16 08:06 White Blood Count 6.1 Red Blood Count 3.67 Hemoglobin 11.8 Hematocrit 34.0 Mean Corpuscular Volume 92.7 Mean Corpuscular Hemoglobin 32.2 Mean Corpuscular Hemoglobin 34.7 Concent Red Cell Distribution Width 13.2 Platelet Count 161 Mean Platelet Volume 9.9 Neutrophils (%) (Auto) Lymphocytes (%) (Auto) Monocytes (%) (Auto) Eosinophils (%) (Auto) Basophils (%) (Auto) Neutrophils # (Auto) Lymphocytes # (Auto) Monocytes # (Auto) Eosinophils # (Auto) Basophils # (Auto) CBC Comment AUTO DIFF Differential Total Cells 100 Counted Neutrophils % (Manual) 77 Band Neutrophils % 1 Lymphocytes % 10 Monocytes % 10 Eosinophils % 2 Neutrophils # (Manual) 4.8 Differential Comment FINAL DIFF MANUAL Sodium Level 137 Potassium Level 4.2 Chloride Level 106 Carbon Dioxide Level 23.0 Anion Gap 8 Blood Urea Nitrogen 8 Creatinine 0.99 Estimat Glomerular Filtration 73 Rate Random Glucose 124 Calcium Level 8.2 Magnesium Level 1.7 Imaging Last Impressions Chest X-Ray 11/27/16 0600 Signed Impressions: Service Date/Time: Sunday, November 27, 2016 06:09 - CONCLUSION: No significant change. Minimal bibasilar atelectasis again noted. Harley Greene MD Head CT 11/22/16 1347 Signed Impressions: Service Date/Time: Tuesday, November 22, 2016 15:02 - CONCLUSION: 1. Mild cerebral atrophy and periventricular/subcortical white matter small vessel ischemic changes bilaterally. 2. No acute infarct, acute hemorrhage, mass effect or extra-axial fluid collections. Rojelio Smith MD Thoracic Spine CT 11/22/16 0000 Signed Impressions: Service Date/Time: Tuesday, November 22, 2016 15:09 - CONCLUSION: 1. Mildly displaced posterior right fifth, sixth, eighth, and ninth rib fractures. No definitive pneumothorax an individual is portions of lung. Very subtle right-sided hemothorax. 2. No evidence for vertebral compression fracture or subluxation. Royal Martinez MD Lumbar Spine CT 11/22/16 0000 Signed Impressions: Service Date/Time: Tuesday, November 22, 2016 15:09 - CONCLUSION: 1. Moderate to severe spinal stenosis at L4-5. 2. There are degenerative changes throughout the remainder of the lumbar spine. 3. The infrarenal aorta is at the upper limits of normal in size at 3 cm. 4. No acute fracture identified. Urbano Freed MD Cervical Spine CT 11/22/16 0000 Signed Impressions: Service Date/Time: Tuesday, November 22, 2016 15:04 - CONCLUSION: Degenerative changes, otherwise negative. Avtar Freed MD FACR Brain MRI 11/22/16 0000 Signed Impressions: Service Date/Time: Wednesday, November 23, 2016 15:07 - CONCLUSION: 1. No acute infarct or other acute intracranial abnormality. 2. Chronic white matter changes. 3. Numerous small scattered foci of old hemosiderin deposition as above, could be related to remote trauma or chronic microvascular hemorrhage. Harley Greene MD Physical Exam HEENT: Normocephalic; atraumatic; no jaundice. CHEST: CTA, diminished CARDIAC: RRR ABDOMEN: Soft, nondistended, nontender; no hepatosplenomegaly; bowel sounds are present in all four quadrants. EXTREMITIES: No clubbing, cyanosis, or edema. SKIN: Normal; no rash; no jaundice. 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 Right sided weakness Assessment and Plan Plan ASSESSMENT: - Dysphagia, likely due to proximal esophageal stricture. He has long hx of esophageal strictures and has had multiple dilatations in the past- last about 4 years ago. S/P EGD w/ dilation (11/28/16)---> two esophageal strictures, one at the proximal esophagus and one at the distal esophagus, both dilated to 14 mm, mild gastritis, GERD. Pathology with mildly active chronic fundic gastritis with non-specific features, no helicobacter pylori-like organisms are present. PPI. No signs of bleeding. States he is swallowing fine now, but was unable to eat the chicken for lunch because he does not have his bottom teeth and is unable to chew his food well. - Anemia. Mild. 11.8/34.0 - GERD. PPI. - Sz D/O, Hx CVA, hyperlipidemia,hypothyroidism, anxiety per primary PLAN: - Mechanical soft diet - Cont. Protonix - FU KELSY as outpatient - Rpt. EGD with dilatation in ~ 3 weeks as outpatient - GI will sign off, please reconsult as needed - Pt seen and examined by Dr. Middleton and myself and this note is written on his behalf Flor Truong Nov 30, 2016 15:55
[2016-11-30 16:00] VITALS: BP 121/78; PULSE 73; RESP 16; TEMP 97.6; O2SAT 100
[2016-11-30 20:00] VITALS: BP 121/80; PULSE 85; RESP 20; TEMP 97.9; O2SAT 100
[2016-11-30] MEDS: ATORVASTATIN 40 MG TAB PO SCH (20:40)
[2016-11-30] MEDS: ALPRAZolam 0.5 MG TAB PO PRN (21:11)
[2016-12-01] VITALS: BP 129/69; PULSE 76; RESP 20; TEMP 96.2; O2SAT 99
[2016-12-01] MEDS: LOW DOSE INSULIN NOVOLIN REGULAR SUPPLEMENTAL SCALE SQ SCH ×2 (03:00→06:33)
[2016-12-01] MEDS: CHLORHEXIDINE GLUCONATE 2 % 1 PACK (2 CLOTHS) TOP SCH (03:31)
[2016-12-01 04:00] VITALS: BP 129/82; PULSE 73; RESP 20; TEMP 98.3; O2SAT 99
[2016-12-01] MEDS: PANTOPRAZOLE SOD 40 MG DELAYED RELEASE TAB PO SCH (05:19)
[2016-12-01] MEDS: BRIMONIDINE TARTRATE 0.15% OPHT SOLN 5 ML BTL EACH EYE SCH (05:19)
[2016-12-01] MEDS: ACETAMINOPHEN/HYDROcodone 325 MG/5 MG TAB PO PRN (07:40)
[2016-12-01] MEDS: BISACODYL 10 MG SUPP RECTAL PRN (07:45)
[2016-12-01 08:00] VITALS: BP 120/73; PULSE 75; RESP 20; TEMP 98.9; O2SAT 97
[2016-12-01 08:40] VITALS: RESP 18
[2016-12-01] MEDS: ASPIRIN 81 MG CHEW TAB CHEW SCH (08:50)
[2016-12-01] MEDS: DOCUSATE SODIUM 50 MG/SENNA 8.6 MG TAB PO SCH (08:50)
[2016-12-01] MEDS: PRIMIDONE 250 MG TAB PO SCH (08:50)
[2016-12-01] MEDS: ISOSORBIDE MONONITRATE 30 MG TAB PO SCH (08:50)
[2016-12-01] MEDS: METOPROLOL TARTRATE 50 MG TAB PO SCH (08:50)
[2016-12-01] MEDS: CELECOXIB 100 MG CAP PO SCH (08:50)
[2016-12-01] MEDS: metFORMIN HCL 500 MG TAB PO SCH (08:50)
[2016-12-01] MEDS: levETIRAcetam 500 MG TAB PO SCH (08:50)
[2016-12-01] MEDS: CYCLOBENZAPRINE HCL 10 MG TAB PO SCH (08:51)
[2016-12-01] MEDS: BETAMETHASONE/CLOTRIMAZOLE CREAM 15 GM TOPICAL SCH (08:51)
[2016-12-01] MEDS: MINOCYCLINE HCL 50 MG CAP PO SCH (08:51)
[2016-12-01] MEDS: CLOPIDOGREL 75 MG TAB PO SCH (08:51)
[2016-12-01] MEDS: TIMOLOL MALEATE 0.25% OPHT SOLN 5 ML BTL EACH EYE SCH (08:51)
[2016-12-01] MEDS: SODIUM CHLORIDE 0.9% FLUSH 10 ML FLUSH IV FLUSH SCH (08:51)
== END 2016-12-01 12:29 | DRG 101 ==
LOC: NEPC 13:41 → NEDA 17:12 → NEDH 21:30 → HIMW 21:55 → N05B 11-25 16:10 → N05A 11-25 21:35 → N05B 11-25 21:35
PROVIDERS: ADMIT Internal Medicine Critical Care Medicine; ATTEND Hospitalist
PROC: 0DB68ZX Excision of Stomach, Via Natural or Artificial Opening Endoscopic, Diagnostic (ICD-10-PCS; 2016-11-28)
PROC: 0D758DZ Dilation of Esophagus with Intraluminal Device, Via Natural or Artificial Opening Endoscopic (ICD-10-PCS; principal; 2016-11-28 10:00)
DX: G40.409 Other generalized epilepsy and epileptic syndromes, not intractable, without status epilepticus (principal); E87.2 Acidosis; E11.65 Type 2 diabetes mellitus with hyperglycemia; E86.0 Dehydration; S22.49XA Multiple fractures of ribs, unspecified side, initial encounter for closed fracture; K22.2 Esophageal obstruction; J98.11 Atelectasis; I69.398 Other sequelae of cerebral infarction; D64.9 Anemia, unspecified; E03.9 Hypothyroidism, unspecified; E78.5 Hyperlipidemia, unspecified; G25.0 Essential tremor; H40.9 Unspecified glaucoma; I10 Essential (primary) hypertension; I25.10 Atherosclerotic heart disease of native coronary artery without angina pectoris; I25.2 Old myocardial infarction; K29.70 Gastritis, unspecified, without bleeding; Z87.891 Personal history of nicotine dependence; Z95.1 Presence of aortocoronary bypass graft; Z95.5 Presence of coronary angioplasty implant and graft; F41.9 Anxiety disorder, unspecified; Z98.41 Cataract extraction status, right eye; X58.XXXA Exposure to other specified factors, initial encounter; Y92.9 Unspecified place or not applicable; R13.10 Dysphagia, unspecified; K21.9 Gastro-esophageal reflux disease without esophagitis
CPT/HCPCS: 51702; 70450; 70551; 71010; 72125; 72128; 72131; 80048; 80053; 80184; 80188; 81001; 82010; 82550; 82552; 82947; 82948; 83036; 83690; 83735; 84100; 84155; 84484; 85007; 85025; 85027; 85610; 87086; 87641; 88305; 88312; 93005; 94150; 95819; 96361; 96374; C1769; J0131; J1817; J1953; J2060; J7030; J7040; J7042

== ENCOUNTER 2018-01-29 10:08 | Observation (INO) ==
--- NOTE | 2018-01-29 11:01 | ED ---
HPI General Chief Complaint: Fall Stated Complaint: Fall Time Seen by Provider: 01/29/18 10:41 Source: patient Mode of arrival: EMS History of Present Illness HPI Narrative: 82 y/o male presents after fall injury that he does not remember. He reports waking up on his bathroom floor this morning and being unsure of the preceding events. He used his Ericka device to call his son-in-law for help. He has had several dizzy spells for the past month since discontinuing his Antivert. Dizzy spells have become increasingly frequent, with 2-3 spells happening yesterday. He is complaining of right-sided pain over his ribs that worsens with deep breathing. He denies any known head trauma or pain anywhere else. He has not been eating or drinking well for the past several days. Denies any nausea, vomiting, chest pain, palpitations, vision changes, or changes in urination patterns. MD complaint: fall Related Data Home Medications Medication Instructions Recorded Confirmed alprazolam 0.5 mg PO TID PRN 01/29/18 01/29/18 aspirin 81 mg PO DAILY 01/29/18 01/29/18 calcium carbonate [Tums E-X] 300 mg PO DIRECTED PRN 01/29/18 01/29/18 cetirizine [Allergy Relief 10 mg PO DAILY PRN 01/29/18 01/29/18 (cetirizine)] docusate sodium [Stool Softener] 100 mg PO DAILY PRN 01/29/18 01/29/18 isosorbide mononitrate 30 mg PO DAILY 01/29/18 01/29/18 levetiracetam [Keppra] 500 mg PO BID 01/29/18 01/29/18 metoprolol tartrate 50 mg PO BID 01/29/18 01/29/18 minocycline 50 mg PO Q12HR 01/29/18 01/29/18 nitroglycerin [Nitrostat] 0.4 mg SUBLINGUAL Q5-15M PRN 01/29/18 01/29/18 pantoprazole 40 mg PO DAILY 01/29/18 01/29/18 primidone 250 mg PO TID 01/29/18 01/29/18 primidone 400 mg PO HS 01/29/18 01/29/18 sodium chloride [[place] Nasal] 1 spray INTRANASAL Q4H PRN 01/29/18 01/29/18 temazepam [Restoril] 15 mg PO HS 01/29/18 01/29/18 timolol maleate [Timoptic] 1 drp EACH EYE BID 01/29/18 01/29/18 travoprost [Travatan Z] 1 drp EACH EYE QPM 01/29/18 01/29/18 Allergies Allergy/AdvReac Type Severity Reaction Status Date / Time Sulfa (Sulfonamide Allergy Rash Verified 01/29/18 10:20 Antibiotics) Review of Systems ROS: all other systems reviewed are negative [facility] Medical History Medical History Atypical syncope (Acute) CVA (cerebral vascular accident) (Acute) Diabetes (Acute) Seizures (Acute) Surgical History Surgical History History of quadruple bypass (Acute) Social History Social History Substance History: No History of Abuse Smoking Status: Unknown if ever smoked How Often Do You Have a Drink Containing Alcohol: Never Immunization History Tetanus Immunization: Unsure Hx Influenza Vaccine This Season: No Exam Narrative Exam Narrative: GENERAL: Well-nourished, well-developed 82 y/o male who appears stated age. In no acute distress. SKIN: Warm and dry. Erythematous, superficial scratches present on left elbow. HEAD: Atraumatic. Normocephalic. EYES: Pupils equal and round. No scleral icterus. No injection or drainage. ENT: No nasal bleeding or discharge. Mucous membranes pink and moist. NECK: Trachea midline. No JVD. In c-collar. CARDIOVASCULAR: Regular rate and rhythm. RESPIRATORY: No accessory muscle use. Clear to auscultation. Breath sounds equal bilaterally. GASTROINTESTINAL: Abdomen soft, non-tender, nondistended. Hepatic and splenic margins not palpable. MUSCULOSKELETAL: Extremities without clubbing, cyanosis, or edema. No obvious deformities. Right-sided tenderness to palpation along rib cage. Pelvis stable and nontender to palpation. NEUROLOGICAL: Awake and alert. No obvious cranial nerve deficits. Motor grossly within normal limits. Five out of 5 muscle strength in the arms and legs. Normal speech. PSYCHIATRIC: Appropriate mood and affect; insight and judgment normal. Course Initial Documented Vital Signs Temperature 99.1 F 01/29/18 10:20 Pulse Rate 92 H 01/29/18 10:20 Respiratory Rate 20 01/29/18 10:20 Blood Pressure 125/70 01/29/18 10:20 Pulse Oximetry 96 01/29/18 10:20 Last Documented Vital Signs Temperature 99.1 F 01/29/18 10:20 Pulse Rate 92 H 01/29/18 10:20 Respiratory Rate 20 01/29/18 10:20 Blood Pressure 125/70 01/29/18 10:20 Pulse Oximetry 96 01/29/18 10:20 Medical Decision Making MDM Narrative Medical decision making narrative: Patient appears to have had a syncopal episode, was laying on the floor for about 6 hours. His lab work did not show significant electrolyte abnormalities, EKG did not show dysrhythmias. CT the brain was negative for any signs of acute intracranial injuries. He does have a right-sided rib fracture which is likely causing him pain. At this point, plan would be to admit as an observation for syncope. Case is discussed with Dr. Valente for admission. Medical Screen Exam Complete: Yes Emergency Medical Condition: Yes Differential Diagnosis Differential Diagnosis: Intracranial injuries versus rib fractures versus dysrhythmias versus vertigo versus dehydration Lab Data Lab results reviewed: Yes I reviewed the patient's lab results. Result diagrams: 01/29/18 10:40 01/29/18 10:40 Lab Results 01/29/18 01/29/18 01/29/18 Range/Units 10:40 10:40 10:40 WBC 10.5 (4.0-11.0) th/mm3 RBC 4.07 L (4.50-5.90) mil/mm3 Hgb 13.2 (13.0-17.0) gm/dL Hct 39.1 (39.0-51.0) % MCV 96.2 (80.0-100.0) fL MCH 32.5 (27.0-34.0) pg MCHC 33.8 (32.0-36.0) % RDW 12.7 (11.6-17.2) % Plt Count 120 L (150-450) th/mm3 MPV 9.5 (7.0-11.0) fL Neut % (Auto) 84.7 H (16.0-70.0) % Lymph % (Auto) 6.6 L (9.0-44.0) % Prentiss % (Auto) 8.1 H (0.0-8.0) % Eos % (Auto) 0.3 (0.0-4.0) % Baso % (Auto) 0.3 (0.0-2.0) % Neut # (Auto) 8.9 H (1.8-7.7) th/mm3 Lymph # (Auto) 0.7 L (1.0-4.8) th/mm3 Prentiss # (Auto) 0.8 (0.0-0.9) th/mm3 Eos # (Auto) 0.0 (0.0-0.4) th/mm3 Baso # (Auto) 0.0 (0.0-0.2) th/mm3 WBC Differential . Differential Comment Auto diff final PT 10.7 (9.8-11.6) sec INR 1.1 Ratio Sodium 140 (136-145) meq/L Potassium 4.1 (3.5-5.1) meq/L Chloride 106 (98-107) meq/L Carbon Dioxide 23.2 (21.0-32.0) meq/L Anion Gap 11 (5-15) meq/L BUN 19 H (7-18) mg/dL Creatinine 1.40 H (0.60-1.30) mg/dL Estimated GFR 49 L (>89) mL/min Random Glucose 128 H (74-106) mg/dL Calcium 8.5 (8.5-10.1) mg/dL Total Creatine Kinase 108 (39-308) U/L Troponin I Less than 0.02 L (0.02-0.05) ng/mL 01/29/18 Range/Units 10:40 WBC (4.0-11.0) th/mm3 RBC (4.50-5.90) mil/mm3 Hgb (13.0-17.0) gm/dL Hct (39.0-51.0) % MCV (80.0-100.0) fL MCH (27.0-34.0) pg MCHC (32.0-36.0) % RDW (11.6-17.2) % Plt Count (150-450) th/mm3 MPV (7.0-11.0) fL Neut % (Auto) (16.0-70.0) % Lymph % (Auto) (9.0-44.0) % Prentiss % (Auto) (0.0-8.0) % Eos % (Auto) (0.0-4.0) % Baso % (Auto) (0.0-2.0) % Neut # (Auto) (1.8-7.7) th/mm3 Lymph # (Auto) (1.0-4.8) th/mm3 Prentiss # (Auto) (0.0-0.9) th/mm3 Eos # (Auto) (0.0-0.4) th/mm3 Baso # (Auto) (0.0-0.2) th/mm3 WBC Differential Differential Comment PT (9.8-11.6) sec INR Ratio Sodium (136-145) meq/L Potassium (3.5-5.1) meq/L Chloride (98-107) meq/L Carbon Dioxide (21.0-32.0) meq/L Anion Gap (5-15) meq/L BUN (7-18) mg/dL Creatinine (0.60-1.30) mg/dL Estimated GFR (>89) mL/min Random Glucose (74-106) mg/dL Calcium (8.5-10.1) mg/dL Total Creatine Kinase Cancelled (39-308) U/L Troponin I (0.02-0.05) ng/mL Imaging Data Attestation: I personally reviewed and interpreted this imaging study as follows : Radiologist's impression: Head CT 01/29/18 10:38 CONCLUSION: 1. No focal or acute intracranial hemorrhage. 2. Stable bilateral cortical atrophy. Tiny old lacunar infarct in the right basal ganglia. 3. Otherwise, no other new or significant changes are demonstrated compared to the prior study. . Ribs X-Ray 01/29/18 10:42 CONCLUSION: 1. There appears to be a nondisplaced fracture involving the lateral aspect of the right seventh rib. 2. Stable multiple old healed right-sided rib fractures are again demonstrated not significant changed compared to the prior chest x-ray. Cervical Spine CT 01/29/18 10:47 CONCLUSION: 1. No acute bony fracture. 2. Mild primary bony degenerative changes, disc degeneration and disc space narrowing at C4-5 and C5-6. 3. Broad-based bulging with disc osteophyte complex at C4-5 and C5-6. ECG Data Attestation: I personally reviewed and interpreted this ECG as follows: Interpretation: EKG shows normal sinus rhythm at a rate of 90 bpm with no signs of acute ST elevations or depressions. Discharge Plan Discharge Disposition Patient Disposition: 30 Still Patient Discharge Condition Condition: Stable Discharge Details Anticipated Discharge Date: 01/29/18 Diagnosis: Syncope, Closed rib fracture Physicians Team ED Provider: Vaughn Skinner Primary Care Provider: Cayden Tavarez Rxs /Orders / Referrals /Forms Prescriptions: No Action primidone 50 mg Tablet 250 mg PO TID RF: 0 primidone 50 mg Tablet 400 mg PO HS RF: 0 cetirizine [Allergy Relief (cetirizine)] 10 mg Tablet 10 mg PO DAILY PRN (Reason: Allergy Symptoms) RF: 0 levetiracetam [Keppra] 500 mg Tablet 500 mg PO BID RF: 0 isosorbide mononitrate 30 mg Tablet Extended Release 24 Hr 30 mg PO DAILY RF: 0 travoprost [Travatan Z] 0.004 % Drops 1 drp EACH EYE QPM RF: 0 calcium carbonate [Tums E-X] 300 mg (750 mg) Tablet,Chewable 300 mg PO DIRECTED PRN (Reason: Heartburn) RF: 0 aspirin 81 mg Tablet,Delayed Release (Dr/Ec) 81 mg PO DAILY RF: 0 alprazolam 0.5 mg Tablet 0.5 mg PO TID PRN (Reason: Anxiety) RF: 0 temazepam [Restoril] 15 mg Capsule 15 mg PO HS RF: 0 pantoprazole 40 mg Tablet,Delayed Release (Dr/Ec) 40 mg PO DAILY RF: 0 minocycline 50 mg Capsule 50 mg PO Q12HR RF: 0 metoprolol tartrate 50 mg Tablet 50 mg PO BID RF: 0 nitroglycerin [Nitrostat] 0.4 mg Tablet, Sublingual 0.4 mg SUBLINGUAL Q5-15M PRN (Reason: Chest Pain) RF: 0 docusate sodium [Stool Softener] 100 mg Capsule 100 mg PO DAILY PRN (Reason: Constipation) RF: 0 timolol maleate [Timoptic] 0.5 % Drops 1 drp EACH EYE BID RF: 0 sodium chloride [[place] Nasal] 0.65 % Aerosol,[place] 1 spray INTRANASAL Q4H PRN (Reason: Nasal Congestion) RF: 0 Status ED Status: With Doctor
[2018-01-29 11:07] LABS: Baso % (Auto) 0.3 % (0.0-2.0); Eos % (Auto) 0.3 % (0.0-4.0); Hematocrit 39.1 % (39.0-51.0); Hemoglobin 13.2 gm/dL (13.0-17.0); Lymph # (Auto) 0.7 th/mm3 (1.0-4.8); Lymph % (Auto) 6.6 % (9.0-44.0); Mean Corpuscular HGB Conc 33.8 % (32.0-36.0); Mean Corpuscular Hemoglobin 32.5 pg (27.0-34.0); Mean Corpuscular Volume 96.2 fL (80.0-100.0); Mean Platelet Volume 9.5 fL (7.0-11.0); Mono # (Auto) 0.8 th/mm3 (0.0-0.9); Mono % (Auto) 8.1 % (0.0-8.0); Neut # (Auto) 8.9 th/mm3 (1.8-7.7); Neut % (Auto) 84.7 % (16.0-70.0); Platelet Count 120 th/mm3 (150-450); Red Blood Count 4.07 mil/mm3 (4.50-5.90); Red Cell Distribution Width 12.7 % (11.6-17.2); White Blood Count 10.5 th/mm3 (4.0-11.0)
--- NOTE | 2018-01-29 11:08 | XR ---
EXAM DATE: 01/29/2018 11:01 AM EDT AGE/SEX: 82 years / Male INDICATIONS: Right lateral rib pain, fell CLINICAL DATA: This is the patient's initial encounter. Patient reports that signs and symptoms have been present for 2 days and indicates a pain score of 6/10. MEDICAL/SURGICAL HISTORY: . CABG. . Coronary artery stent. COMPARISON: [facility] [place]ST S[place] AP, 11/27/2016. . FINDINGS: There is examination is compared to a prior chest x-ray from 2017. There are several old healed right -sided rib fractures including the right fourth, fifth, sixth, seventh and eighth ribs. These were pr esent on the prior study. However, there appears to be an acute fracture involving the lateral aspect of the right seventh rib. Otherwise, the rest the bony structures are grossly intact. No evidence of pneumothorax. There is evidence of previous cardiothoracic surgery. The lungs are grossly clear. CONCLUSION: 1. There appears to be a nondisplaced fracture involving the lateral aspect of the right seventh rib . 2. Stable multiple old healed right-sided rib fractures are again demonstrated not significant espinal ed compared to the prior chest x-ray. Electronically signed by: Martinez Anderson MD 01/29/2018 11:07 AM EDT
[2018-01-29 11:21] LABS: INR 1.1 Ratio; Prothrombin Time 10.7 sec (9.8-11.6)
--- NOTE | 2018-01-29 11:27 | CT ---
EXAM DATE: 01/29/2018 11:16 AM EDT AGE/SEX: 82 years / Male INDICATIONS: Fall this morning. CLINICAL DATA: This is the patient's initial encounter. Patient reports that signs and symptoms have been present for 1 day and indicates a pain score of 5/10. MEDICAL/SURGICAL HISTORY: Diabetes. Seizures. CABG. RADIATION DOSE: 36.94 CTDI (mGy) COMPARISON: [facility] [place] BRAIN W/O CONTRAST, 11/22/2016. . TECHNIQUE: CT of the head without contrast. Using automated exposure control and adjustment of the mA and/or kV according to patient size, radiation dose was kept as low as reasonably achievable to ob tain optimal diagnostic quality images. DICOM format image data is available electronically for revi ew and comparison. FINDINGS: Cerebrum: The ventricles are normal for age. There are stable bilateral cortical atrophy. There is a tiny old lacunar infarct in the right basal ganglia. No evidence of midline shift, mass lesion, hem orrhage or acute infarction. No extraaxial fluid collections are seen. Posterior Fossa: The cerebellum and brainstem are intact. The 4th ventricle is midline. The cerebe llopontine angle is unremarkable. Extracranial: The visualized portion of the orbits is intact. Skull: The calvaria is intact. No evidence of skull fracture. CONCLUSION: 1. No focal or acute intracranial hemorrhage. 2. Stable bilateral cortical atrophy. Tiny old lacunar infarct in the right basal ganglia. 3. Otherwise, no other new or significant changes are demonstrated compared to the prior study. . Electronically signed by: Martinez Anderson MD 01/29/2018 11:26 AM EDT
[2018-01-29 11:29] LABS: Anion Gap 11 meq/L (5-15); Blood Urea Nitrogen 19 mg/dL (7-18); Calcium 8.5 mg/dL (8.5-10.1); Carbon Dioxide 23.2 meq/L (21.0-32.0); Chloride 106 meq/L (98-107); Glomerular Filtration Rate 49 mL/min (>89); Glucose,Random 128 mg/dL (74-106); Potassium 4.1 meq/L (3.5-5.1); Sodium 140 meq/L (136-145)
--- NOTE | 2018-01-29 11:31 | CT ---
EXAM DATE: 01/29/2018 11:26 AM EDT AGE/SEX: 82 years / Male INDICATIONS: Fall this morning. CLINICAL DATA: This is the patient's initial encounter. Patient reports that signs and symptoms have been present for 1 day and indicates a pain score of 5/10. MEDICAL/SURGICAL HISTORY: Diabetes. Seizure. CABG. RADIATION DOSE: 18.42 CTDI (mGy) COMPARISON: No prior exams available for comparison. TECHNIQUE: Contiguous axial images were obtained using helical multirow detector technique. The vol umetric data was post-processed with multiplanar reconstruction in oblique axial, sagittal, and coron al planes. Using automated exposure control and adjustment of the mA and/or kV according to patient s ize, radiation dose was kept as low as reasonably achievable to obtain optimal diagnostic quality jaimee ges. DICOM format image data is available electronically for review and comparison. FINDINGS: Vertebrae: Normal vertebral body height. There are some degenerative changes as well as disc space n arrowing involving the cervical spine at C4-5 and C5-6. No acute bony fracture. Alignment: Normal. No subluxation. C2-3: The bony spinal canal is normal in size. No evidence of disc bulge or herniation. The neural foramina are bilaterally patent. C3-4: The bony spinal canal is normal in size. No evidence of disc bulge or herniation. The neural foramina are bilaterally patent. C4-5: Mild broad-based bulging with disc osteophyte complex. The neural foramina appear patent. C5-6: Mild broad-based bulging with disc osteophyte complex. Mild narrowing of the right neural fora valeria. The left neural foramina appears patent. C6-7: The bony spinal canal is normal in size. No evidence of disc bulge or herniation. The neural foramina are bilaterally patent. C7-T1: The bony spinal canal is normal in size. No evidence of disc bulge or herniation. The neura l foramina are bilaterally patent. CONCLUSION: 1. No acute bony fracture. 2. Mild primary bony degenerative changes, disc degeneration and disc space narrowing at C4-5 and C5 -6. 3. Broad-based bulging with disc osteophyte complex at C4-5 and C5-6. Electronically signed by: Martinez Anderson MD 01/29/2018 11:30 AM EDT
[2018-01-29 11:33] LABS: Creatine Kinase 108 U/L (39-308)
[2018-01-29] MEDS ORDERED: Lidocaine PF 1% Inj 5 ML Syringe INFILTRATN ONE (12:00)
--- NOTE | 2018-01-29 13:17 | P.HPIM ---
History of Present Illness Primary Care Physician: Cayden Tavarez MD Chief Complaint: Syncope History of Present Illness: Mr. 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 Pt reports that he has had issues with vertigo and occasionally uses Antivert but has not used this in the last month. Pt reports that he lives alone but uses a wheeled walker for assistance in mobilization. Pt presented to the ED at [facility] [place] on 01/28/18 after a suspected syncopal episode. Pts daughter is at bedside and assists with the history. Apparently last night around 3AM he started having some lightheadedness and dizziness while he was sitting down watching TV. He was using his walker to get to the bathroom and sat down on the commode to urinate. He does not recall what happened after that but woke up on the bathroom floor and was unable to get up off the floor under his own power. Around 9Am he used his Ericka device to call his son-in-law and his daughter and son-in-law came to the house and found him on the floor in the bathroom. There was no noted loss of bowel or bladder function. No reported tongue biting. No obvious extremity injuries but complains of right sided rib pain. He had a Head CT in the ED which showed no focal or acute intracranial hemorrhage, stable bilateral cortical atrophy, tiny old lacunar infarct in the right basal ganglia , otherwise, no other new or significant changes are demonstrated compared to the prior study. Pts labs in the ED notes some degree of dehydration. Pt has not been eating or drinking well. He has had issues with dysphagia which has been a long standing issue but seems to be worse over the last few months. He had an EGD with dilation on 11/28/[address] Palafox which noted two esophageal strictures, one at the proximal esophagus and one at the distal esophagus, both dilated to 14mm, mild gastritis, and GERD. 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 Palafox --> two esophageal strictures, one at the proximal esophagus and one at the distal esophagus, both dilated to 14mm, mild gastritis, GERD Coronary artery bypass graft 3 vessels in 1996 Multiple stents Appendectomy Right cataract surgery Left humerus fracture repair Family Hx: Noncontributory Social Hx: Denies any alcohol, tobacco or illicit drug use Uses a wheeled walker. Occasionally goes grocery shopping with assisted devices - Diagnosis (1) Syncope (2) Closed rib fracture (3) Dysphagia (4) Acute on chronic renal insufficiency (5) History of seizures (6) CAD (coronary artery disease) (7) HTN (hypertension) (8) Hyperlipidemia (9) History of CVA (cerebrovascular accident) Review of Systems Constitutional: Denies chills, Denies fever(s), Denies headache(s) Eyes: Denies change in vision, Denies loss of vision Ears, Nose, Mouth, and Throat: Reports difficulty swallowing, Reports dizziness Cardiovascular: Denies chest pain, Denies shortness of breath Respiratory: Denies cough, Denies shortness of breath Gastrointestinal: Denies abdominal pain, Denies constipation, Denies nausea, Denies vomiting Genitourinary: Denies urinary incontinence, Denies urinary urgency Musculoskeletal: Reports other (rib pain) Skin/Breast: Denies rash, Denies wounds Neurologic: Reports dizziness, Reports fainting, Reports unsteadiness, Denies confusion, Denies headache(s), Denies loss of vision, Denies convulsions, Denies seizure-like activity PMFSH - History History Provided By: Patient, Information Operator / EMT - Medical History Medical History: Medical History (Last Reviewed 01/29/18 @ 11:14 by Vaughn Skinner MD) Atypical syncope CVA (cerebral vascular accident) Diabetes Seizures - Surgical History Surgical History: Surgical History (Last Reviewed 01/29/18 @ 11:14 by Vaughn Skinner MD) History of quadruple bypass - Tobacco History Smoking Status: Unknown if ever smoked - Alcohol History How Often Do You Have a Drink Containing Alcohol: Never - Substance Use History Substance History: No History of Abuse - Immunization History Tetanus Immunization: Unsure Hx Influenza Vaccine This Season: No Medications and Allergies Allergies Allergy/AdvReac Type Severity Reaction Status Date / Time Sulfa (Sulfonamide Allergy Rash Verified 01/29/18 10:20 Antibiotics) Home Medications Medication Instructions Recorded Confirmed Type alprazolam 0.5 mg PO TID PRN 01/29/18 01/29/18 History aspirin 81 mg PO DAILY 01/29/18 01/29/18 History calcium carbonate [Tums E-X] 300 mg PO DIRECTED PRN 01/29/18 01/29/18 History cetirizine [Allergy Relief 10 mg PO DAILY PRN 01/29/18 01/29/18 History (cetirizine)] docusate sodium [Stool Softener] 100 mg PO DAILY PRN 01/29/18 01/29/18 History isosorbide mononitrate 30 mg PO DAILY 01/29/18 01/29/18 History levetiracetam [Keppra] 500 mg PO BID 01/29/18 01/29/18 History metoprolol tartrate 50 mg PO BID 01/29/18 01/29/18 History minocycline 50 mg PO Q12HR 01/29/18 01/29/18 History nitroglycerin [Nitrostat] 0.4 mg SUBLINGUAL Q5-15M PRN 01/29/18 01/29/18 History pantoprazole 40 mg PO DAILY 01/29/18 01/29/18 History primidone 250 mg PO TID 01/29/18 01/29/18 History primidone 400 mg PO HS 01/29/18 01/29/18 History sodium chloride [Porcupine Nasal] 1 spray INTRANASAL Q4H PRN 01/29/18 01/29/18 History timolol maleate [Timoptic] 1 drp EACH EYE BID 01/29/18 01/29/18 History travoprost [Travatan Z] 1 drp EACH EYE QPM 01/29/18 01/29/18 History Active Medications: Active Medications Sodium Chloride (Ns Flush) 2 ml IV.FLUSH PRN PRN PRN Reason: FLUSH AFTER USING IV ACCESS Exam Vital signs: Vital Signs 01/29/18 10:20 Temperature 99.1 F Pulse Rate 92 H Respiratory Rate 20 Blood Pressure 125/70 Pulse Oximetry 96 Intake & Output 01/28/18 01/29/18 01/29/18 18:59 06:59 18:59 Weight 75 kg Narrative: GENERAL: NAD, AAOx3 SKIN: Warm and dry. HEAD: Atraumatic. Normocephalic. Pupils equal and round. No scleral icterus. No injection or drainage. No nasal bleeding or discharge. White plaquing on the tongue, palate and posterior pharynx NECK: Trachea midline. No JVD. CARDIO: Regular RESP: No accessory muscle use. Clear to auscultation. Breath sounds equal bilaterally. ABD: +BS, soft, non-tender, nondistended. Hepatic and splenic margins not palpable. EXT: Extremities without clubbing, cyanosis, or edema. No obvious deformities. NEURO: Awake and alert. No obvious cranial nerve deficits. Motor grossly within normal limits. Five out of 5 muscle strength in the arms and legs. Normal speech. PSYCHIATRIC: Appropriate mood and affect; insight and judgment normal. Results - Labs CBC & Chem 7: 01/29/18 10:40 01/29/18 10:40 Labs: Short CBC 01/29/18 Range/Units 10:40 WBC 10.5 (4.0-11.0) th/mm3 Hgb 13.2 (13.0-17.0) gm/dL Hct 39.1 (39.0-51.0) % Plt Count 120 L (150-450) th/mm3 BMP 01/29/18 10:40 Sodium 140 Potassium 4.1 Chloride 106 Carbon Dioxide 23.2 BUN 19 H Creatinine 1.40 H Calcium 8.5 Cardiac Enzymes 01/29/18 01/29/18 Range/Units 10:40 10:40 Total Creatine Kinase 108 Cancelled (39-308) U/L Troponin I Less than 0.02 L (0.02-0.05) ng/mL - Imaging Impressions Head CT 01/29/18 10:38 CONCLUSION: 1. No focal or acute intracranial hemorrhage. 2. Stable bilateral cortical atrophy. Tiny old lacunar infarct in the right basal ganglia. 3. Otherwise, no other new or significant changes are demonstrated compared to the prior study. . Ribs X-Ray 01/29/18 10:42 CONCLUSION: 1. There appears to be a nondisplaced fracture involving the lateral aspect of the right seventh rib. 2. Stable multiple old healed right-sided rib fractures are again demonstrated not significant changed compared to the prior chest x-ray. Cervical Spine CT 01/29/18 10:47 CONCLUSION: 1. No acute bony fracture. 2. Mild primary bony degenerative changes, disc degeneration and disc space narrowing at C4-5 and C5-6. 3. Broad-based bulging with disc osteophyte complex at C4-5 and C5-6. Caprini VTE Risk Assessment Caprini VTE Risk Assessment: Moderate/High Risk (score >= 2) Caprini Risk Assessment Model: Point Value = 1 Point Value = 2 Point Value = 3 Point Value = 5 Age 41-60 Minor surgery BMI > 25 kg/m2 Swollen legs Varicose veins or History of unexplained or recurrent spontaneous Oral contraceptives or hormone replacement Sepsis (< 1 month) Serious lung disease, including pneumonia (< 1 month) Abnormal pulmonary function Acute myocardial infarction Congestive heart failure (< 1 month) History of inflammatory bowel disease Medical patient at bed rest Age 61-74 Arthroscopic surgery Major open surgery (> 45 min) Laparoscopic surgery (> 45 min) Malignancy Confined to bed (> 72 hours) Immobilizing plaster cast Central venous access Age >= 75 History of VTE Family history of VTE Factor V Leiden Prothrombin [id number] Lupus anticoagulant Anticardiolipin antibodies Elevated serum homocysteine Heparin-induced thrombocytopenia Other congenital or acquired thrombophilia Stroke (< 1 month) Elective arthroplasty Hip, pelvis, or leg fracture Acute spinal cord injury (< 1 month) Prophylaxis Regimen: Total Risk Factor Score Risk Level Prophylaxis Regimen 0-1 Low Early ambulation 2 Moderate Order ONE of the following: *Sequential Compression Device (SCD) *Heparin 5000 units SQ BID 3-4 Higher Order ONE of the following medications: *Heparin 5000 units SQ TID *Enoxaparin/Lovenox 40 mg SQ daily (WT < 150 kg, CrCl > 30 mL/min) *Enoxaparin/Lovenox 30 mg SQ daily (WT < 150 kg, CrCl > 10-29 mL/min) *Enoxaparin/Lovenox 30 mg SQ BID (WT < 150 kg, CrCl > 30 mL/min) AND/OR *Sequential Compression Device (SCD) 5 or more Highest Order ONE of the following medications: *Heparin 5000 units SQ TID (Preferred with Epidurals) *Enoxaparin/Lovenox 40 mg SQ daily (WT < 150 kg, CrCl > 30 mL/min) *Enoxaparin/Lovenox 30 mg SQ daily (WT < 150 kg, CrCl > 10-29 mL/min) *Enoxaparin/Lovenox 30 mg SQ BID (WT < 150 kg, CrCl > 30 mL/min) AND *Sequential Compression Device (SCD) Assessment and Plan - Assessment (1) Syncope Code(s): R55 - Syncope and collapse Status: Acute Plan: Syncopal episode - Pt is an 82 y/o WM with hx of CVA, 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 Pt reports that he has had issues with vertigo and occasionally uses Antivert. - Pt presented to the ED at [facility] [place] on 01/28/18 after a suspected syncopal episode. He started having some lightheadedness and dizziness last night and after he sat down on the commode to urinate, he does not recall what happened after that but woke up on the bathroom floor and was unable to get up off the floor under his own power. He was able to notify his family who found him around 9AM. - Etiology for the suspected syncopal episode is unclear. Possibly related to orthostatic hypotension secondary to dehydration vs. dysrhythmia vs. TIA vs. seizure vs. other - Head CT (01/29/18) --> no focal or acute intracranial hemorrhage, stable bilateral cortical atrophy, tiny old lacunar infarct in the right basal ganglia , otherwise, no other new or significant changes are demonstrated compared to the prior study. - Neck CT (01/29/18) --> No acute bony fracture, mild primary bony degenerative changes, disc degeneration and disc space narrowing at C4-5 and C5-6, and broad- based bulging with disc osteophyte complex at C4-5 and C5-6. - Check orthostatic vital signs - Give IVF as pt appears to have some degree of dehydration likely secondary to poor oral intake - Telemetry - PT evaluation in AM - Cont. Acute on chronic kidney disease Dehydration Dysphagia Poor oral intake Thrush - Pts labs in the ED notes some degree of dehydration, previous Cr was 0.99. Labs at admission with Cr 1.40. - Pt has not been eating or drinking well. He has had issues with dysphagia which has been a long standing issue but seems to be worse over the last few months. - Last EGD with dilation on 11/28/[address] Palafox which noted two esophageal strictures, one at the proximal esophagus and one at the distal esophagus, both dilated to 14mm, mild gastritis, and GERD. - Give IVF - Monitor labs - Consult GI regarding the dysphagia - Start Nystatin S/S - PPI Close rib fracture - Rib Xray (01/29/18) --> There appears to be a nondisplaced fracture involving the lateral aspect of the right seventh rib. Stable multiple old healed right- sided rib fractures are again demonstrated not significant changed compared to the prior chest x-ray. - IS - Pain control PRN CAD HTN Hyperlipidemia - Resume home meds - Monitor vitals, checkin orthostatics Hx of seizure as late effect from CVA Hx of CVA - Cont. home meds The exam, history, and the medical decision-making described in the above note were completed with the assistance of the mid-level provider. I reviewed and agree with the findings presented. I attest that I had a [id number] encounter with the patient on the same day, and personally performed and documented my assessment and findings in the medical record. syncope. possible orthostasis or dehydration. consider vasovagal. doubt arrhythmia. hx sz but taking aed and no clear historical evidence for new sz activity. not eating as much. dysphagia and chokes on food. ask GI to reevaluate his esophageal strictures. thrush. nystatin ordered. PT eval. plan hhc/pt. daughter present. (2) Closed rib fracture Code(s): S22.39XA - Fracture of one rib, unspecified side, initial encounter for closed fracture Status: Acute (3) Dysphagia Code(s): R13.10 - Dysphagia, unspecified Status: Chronic (4) Acute on chronic renal insufficiency Code(s): N28.9 - Disorder of kidney and ureter, unspecified; N18.9 - Chronic kidney disease, unspecified Status: Acute (5) History of seizures Code(s): Z87.898 - Personal history of other specified conditions Status: Chronic (6) CAD (coronary artery disease) Code(s): I25.10 - Atherosclerotic heart disease of [place] coronary artery without angina pectoris Status: Chronic (7) HTN (hypertension) Code(s): I10 - Essential (primary) hypertension Status: Chronic (8) Hyperlipidemia Code(s): E78.5 - Hyperlipidemia, unspecified Status: Chronic (9) History of CVA (cerebrovascular accident) Code(s): Z86.73 - Personal history of transient ischemic attack (TIA), and cerebral infarction without residual deficits Status: Chronic
[2018-01-29] MEDS ORDERED: Sodium Chloride 0.65% Nasal Spray 45 ML Bottle EACH NARE PRN (14:00)
[2018-01-29] MEDS ORDERED: Chlorhexidine Gluconate 2% 1 Pack (2 Cloths) TOPICAL SCH (14:45)
[2018-01-29] MEDS ORDERED: Metoprolol Tartrate 25 MG Tablet PO SCH (14:45)
[2018-01-29] MEDS ORDERED: Sodium Chlor 0.9% Inj 500 ML IV.SIG SCH (15:00)
[2018-01-29] MEDS ORDERED: MINOCYCLINE 50 MG PO SCH (21:00)
[2018-01-29] MEDS: Nystatin Liq 500,000 UNIT/5 ML UDC SWISH-SWAL SCH ×2 (22:18)
[2018-01-29] MEDS: Metoprolol Tartrate 50 MG Tablet PO SCH (22:18)
[2018-01-29] MEDS: Isosorbide Mononitrate 30 MG ER 24HR Tablet (Imdur) PO SCH (22:18)
[2018-01-29] MEDS: Senna/Docusate Sodium 8.6/50 MG Tablet PO SCH (22:18)
[2018-01-29] MEDS: levETIRAcetam 500 MG Tablet PO SCH (22:18)
[2018-01-29] MEDS: Timolol 0.5% Drops 5 ML Bottle EACH EYE SCH (22:18)
[2018-01-29] MEDS: Latanoprost 0.005% Opth Drops 2.5 ML Bottle EACH EYE SCH (22:19)
--- NOTE | 2018-01-29 23:11 | P.CONGI ---
History of Present Illness Consult date: 01/29/18 Consult reason: Dysphagia history of esophageal stricture Chief complaint: Syncope/right rib fracture History of Present Illness: Patient is a 10-year-old gentleman well-known to our service from prior encounters with known history of esophageal stricture and dysphagia requiring prior dilatations the patient presents to the ED with complaints of a syncopal episode with noted recent history of vertigo and dizziness and as he was given his history reported worsening dysphagia lately his last dilation was a year ago his dysphagia is mostly to solids not so much to liquids he denies any coughing or choking but does report inability to keep up with his weight otherwise he seems to be doing well overall Review of Systems All other systems reviewed negative except as stated in HPI PMFSH - History History Provided By: Patient - Medical History Medical History: Medical History (Last Reviewed 01/29/18 @ 11:14 by Vaughn Skinner MD) Atypical syncope CVA (cerebral vascular accident) Diabetes Seizures - Surgical History Surgical History: Surgical History (Last Reviewed 01/29/18 @ 11:14 by Vaughn Skinner MD) History of quadruple bypass - Tobacco History Second Hand Smoke Exposure: No Tobacco Use In Past 30 Days: No Smoking Status: Former smoker Tobacco Type: Cigarettes - Alcohol History How Often Do You Have a Drink Containing Alcohol: Never - Substance Use History Substance History: No History of Abuse - Immunization History Tetanus Immunization: <5 Years Hx Influenza Vaccine This Season: Yes Medications and Allergies Active Medications: Active Medications Acetaminophen (Tylenol) 650 mg PO Q4H PRN PRN Reason: Temp > 100.4 Hydrocodone Bitart/Acetaminophen ([place] 5/325) 1 tab PO Q6H PRN PRN Reason: pain 2-10 Aspirin (Ecotrin) 81 mg PO DAILY [facility] Chlorhexidine Gluconate (Chlorhexidine 2% Cloth) 3 pack [employer] [facility] Stop: 02/01/18 14:43 Sodium Chloride (Ns Inj) 1,000 mls @ 84 mls/hr IV.CONT .[id number] [facility] Lactated Ringer's (Lr 1000 Ml Inj) 1,000 mls @ 30 mls/hr IV.SIG .Q24H [facility] Stop: 02/01/18 14:43 Sodium Chloride (Ns Inj) 500 mls @ 30 mls/hr IV.SIG .Q10H [place] Stop: 02/01/18 14:43 Isosorbide Mononitrate (Imdur) 30 mg PO BID [facility] Last Admin: 01/29/18 22:18 Dose: 30 mg Latanoprost (Xalatan 0.005% Opth Drops) 1 drop EACH EYE HS [facility] Last Admin: 01/29/18 22:19 Dose: 1 drop Levetiracetam (Keppra) 500 mg PO BID [facility] Last Admin: 01/29/18 22:18 Dose: 500 mg Metoprolol Tartrate (Lopressor) 50 mg PO BID [facility] Last Admin: 01/29/18 22:18 Dose: 50 mg Metoprolol Tartrate (Lopressor) 25 mg PO [employer] [facility] Stop: 02/01/18 14:43 Nystatin (Mycostatin Liq) 5 ml SWISH-SWAL QID [facility] Last Admin: 01/29/18 22:18 Dose: 5 ml Pantoprazole Sodium (Protonix) 40 mg PO DAILY [facility] Patient Own Medication Minocycline 50 Mg Capsule 0 each PO BID [facility] Povidone Iodine (Betadine 5% Antisepsis Kit) 1 applicatio EACH NARE [employer] [facility] Stop: 02/01/18 14:43 Primidone (Mysoline) 250 mg PO TID [facility] Senna/Docusate Sodium ([place]-Colace) 1 tab PO BID [facility] Last Admin: 01/29/18 22:18 Dose: 1 tab Sodium Chloride (Ns Flush) 2 ml IV.FLUSH PRN PRN PRN Reason: FLUSH AFTER USING IV ACCESS Sodium Chloride ([place] Nasal [place]) 1 spray EACH NARE Q4H PRN PRN Reason: Nasal Congestion Timolol Maleate (Timoptic 0.5% Drops) 1 drops EACH EYE BID [facility] Last Admin: 01/29/18 22:18 Dose: 1 drops Allergies Allergy/AdvReac Type Severity Reaction Status Date / Time Sulfa (Sulfonamide Allergy Rash Verified 01/29/18 10:20 Antibiotics) Home Medications Medication Instructions Recorded Confirmed Type alprazolam 0.5 mg PO TID PRN 01/29/18 01/29/18 History aspirin 81 mg PO DAILY 01/29/18 01/29/18 History calcium carbonate [Tums E-X] 300 mg PO DIRECTED PRN 01/29/18 01/29/18 History cetirizine [Allergy Relief 10 mg PO DAILY PRN 01/29/18 01/29/18 History (cetirizine)] docusate sodium [Stool Softener] 100 mg PO DAILY PRN 01/29/18 01/29/18 History isosorbide mononitrate 30 mg PO DAILY 01/29/18 01/29/18 History levetiracetam [Keppra] 500 mg PO BID 01/29/18 01/29/18 History metoprolol tartrate 50 mg PO BID 01/29/18 01/29/18 History minocycline 50 mg PO Q12HR 01/29/18 01/29/18 History nitroglycerin [Nitrostat] 0.4 mg SUBLINGUAL Q5-15M PRN 01/29/18 01/29/18 History pantoprazole 40 mg PO DAILY 01/29/18 01/29/18 History primidone 250 mg PO TID 01/29/18 01/29/18 History primidone 400 mg PO HS 01/29/18 01/29/18 History sodium chloride [[place] Nasal] 1 spray INTRANASAL Q4H PRN 01/29/18 01/29/18 History timolol maleate [Timoptic] 1 drp EACH EYE BID 01/29/18 01/29/18 History travoprost [Travatan Z] 1 drp EACH EYE QPM 01/29/18 01/29/18 History Exam Vital signs: Vital Signs 01/29/18 10:20 01/29/18 14:15 01/29/18 16:00 Temperature 99.1 F 98 F Pulse Rate 92 H 84 83 Respiratory Rate 20 18 Blood Pressure 125/70 148/60 H 145/67 H Pulse Oximetry 96 100 100 01/29/18 16:03 01/29/18 20:00 Temperature 98.8 F 98.7 F Pulse Rate 85 83 Respiratory Rate 16 18 Blood Pressure 123/61 168/78 H Pulse Oximetry 100 100 Intake & Output 01/29/18 01/29/18 01/30/18 06:59 18:59 06:59 Intake Total 300 / 300 Balance 300 / 300 Weight 75 kg 82.1 kg Intake: Anesthesia Amount 300 / 300 Other: Weight On Admission 82.1 kg - Constitutional no acute distress - Routine HEENT Exam Head: Present: normocephalic Eye: Present: EOMI ENT: Present: mucous membranes moist - Routine Neck Exam Present: supple - Routine Respiratory Exam Present: CTA bilaterally - Routine Cardiovascular Exam Present: RRR - Routine Abdominal Exam Present: soft, normoactive bowel sounds. Absent: tenderness, distended, rebound - Routine Extremities Exam Absent: cyanosis, clubbing, edema - Routine Skin Exam Present: dry, warm - Routine Neurological Exam Present: alert, normal speech Results - Labs CBC & Chem 7: 01/29/18 10:40 01/29/18 10:40 Labs: Laboratory Results - last 24 hr 01/29/18 01/29/18 01/29/18 10:40 10:40 10:40 WBC 10.5 RBC 4.07 L Hgb 13.2 Hct 39.1 MCV 96.2 MCH 32.5 MCHC 33.8 RDW 12.7 Plt Count 120 L MPV 9.5 Neut % (Auto) 84.7 H Lymph % (Auto) 6.6 L [place] % (Auto) 8.1 H Eos % (Auto) 0.3 Baso % (Auto) 0.3 Neut # (Auto) 8.9 H Lymph # (Auto) 0.7 L [place] # (Auto) 0.8 Eos # (Auto) 0.0 Baso # (Auto) 0.0 WBC Differential . Differential Comment Auto diff final PT 10.7 INR 1.1 Sodium 140 Potassium 4.1 Chloride 106 Carbon Dioxide 23.2 Anion Gap 11 BUN 19 H Creatinine 1.40 H Estimated GFR 49 L Random Glucose 128 H Calcium 8.5 Total Creatine Kinase 108 Troponin I Less than 0.02 L 01/29/18 10:40 WBC RBC Hgb Hct MCV MCH MCHC RDW Plt Count MPV Neut % (Auto) Lymph % (Auto) [place] % (Auto) Eos % (Auto) Baso % (Auto) Neut # (Auto) Lymph # (Auto) [place] # (Auto) Eos # (Auto) Baso # (Auto) WBC Differential Differential Comment PT INR Sodium Potassium Chloride Carbon Dioxide Anion Gap BUN Creatinine Estimated GFR Random Glucose Calcium Total Creatine Kinase Cancelled Troponin I - Imaging Impressions Head CT 01/29/18 10:38 CONCLUSION: 1. No focal or acute intracranial hemorrhage. 2. Stable bilateral cortical atrophy. Tiny old lacunar infarct in the right basal ganglia. 3. Otherwise, no other new or significant changes are demonstrated compared to the prior study. . Ribs X-Ray 01/29/18 10:42 CONCLUSION: 1. There appears to be a nondisplaced fracture involving the lateral aspect of the right seventh rib. 2. Stable multiple old healed right-sided rib fractures are again demonstrated not significant changed compared to the prior chest x-ray. Cervical Spine CT 01/29/18 10:47 CONCLUSION: 1. No acute bony fracture. 2. Mild primary bony degenerative changes, disc degeneration and disc space narrowing at C4-5 and C5-6. 3. Broad-based bulging with disc osteophyte complex at C4-5 and C5-6. Assessment and Plan - Plan Patient presenting with a syncopal episode reporting dysphagia and history of esophageal stricture requiring prior dilations We will continue with current supportive care We will proceed with an EGD and dilation Further recommendations she will depend on the findings
--- NOTE | 2018-01-29 23:14 | P.PCN ---
Date of procedure: 01/29/18 Pre-op diagnosis: Dysphagia, history of esophageal stricture Procedure: PROCEDURE PERFORMED EGD with esophageal dilation with a savory dilator over guidewire INDICATION FOR PROCEDURE Dysphagia, history of esophageal stricture PROCEDURE: The procedure, risks and benefits were discussed with Patient/POA and informed consent was obtained. Anesthesia sedated Patient with Diprivan. Patient was placed in the left lateral decubitus position. EGD: The Pentax videoscope was introduced through the oropharynx and advanced to the second portion of the duodenum under direct visualization. Retroflexion was performed in the stomach. FINDINGS: The esophagus there was a benign distal esophageal stricture moderate causing resistance to scope passage the rest of the esophagus was unremarkable a guidewire was passed and a 15 mm savory dilator was used to dilate the esophagus subsequently a small esophageal rent was noted The stomach this was unremarkable The duodenum this was unremarkable ESTIMATED BLOOD LOSS: Minimal SPECIMENS REMOVED: None COMPLICATIONS: None IMPRESSION: Benign esophageal stricture PLAN: Advance diet as tolerated Continue with current supportive measures Patient follow-up with GI post discharge Not much to add at this point from a GI perspective we will sign off Anesthesia: MAC Surgeon: Nick Lyman Condition: stable Disposition: floor
[2018-01-30] MEDS: Sod Chloride 0.9% Inj 1,000 ML IV.CONT SCH ×3 (04:19→12:57)
[2018-01-30 04:52] LABS: Baso % (Auto) 0.2 % (0.0-2.0); Eos # (Auto) 0.1 th/mm3 (0.0-0.4); Eos % (Auto) 1.6 % (0.0-4.0); Hematocrit 37.6 % (39.0-51.0); Hemoglobin 12.7 gm/dL (13.0-17.0); Lymph # (Auto) 0.9 th/mm3 (1.0-4.8); Lymph % (Auto) 12.8 % (9.0-44.0); Mean Corpuscular HGB Conc 33.7 % (32.0-36.0); Mean Corpuscular Hemoglobin 32.2 pg (27.0-34.0); Mean Corpuscular Volume 95.5 fL (80.0-100.0); Mono # (Auto) 0.5 th/mm3 (0.0-0.9); Mono % (Auto) 7.8 % (0.0-8.0); Neut # (Auto) 5.2 th/mm3 (1.8-7.7); Neut % (Auto) 77.6 % (16.0-70.0); Platelet Count 121 th/mm3 (150-450); Red Blood Count 3.94 mil/mm3 (4.50-5.90); Red Cell Distribution Width 12.4 % (11.6-17.2); White Blood Count 6.7 th/mm3 (4.0-11.0)
[2018-01-30 05:13] LABS: Calcium 8.4 mg/dL (8.5-10.1); Carbon Dioxide 28.9 meq/L (21.0-32.0); Potassium 4.3 meq/L (3.5-5.1)
[2018-01-30] MEDS: Timolol 0.5% Drops 5 ML Bottle EACH EYE SCH ×2 (09:43→21:38)
[2018-01-30] MEDS: Primidone 250 MG Tablet PO SCH ×4 (09:45→18:31)
[2018-01-30] MEDS: levETIRAcetam 500 MG Tablet PO SCH ×2 (09:46→21:36)
[2018-01-30] MEDS: Senna/Docusate Sodium 8.6/50 MG Tablet PO SCH ×2 (09:46→21:36)
[2018-01-30] MEDS: Metoprolol Tartrate 50 MG Tablet PO SCH ×2 (09:46→21:36)
[2018-01-30] MEDS: Isosorbide Mononitrate 30 MG ER 24HR Tablet (Imdur) PO SCH ×2 (09:46→21:36)
[2018-01-30] MEDS: Nystatin Liq 500,000 UNIT/5 ML UDC SWISH-SWAL SCH ×4 (09:46→21:36)
--- NOTE | 2018-01-30 10:49 | P.PNIM ---
Subjective Interval history: Pt feels that he is swallowing better since the EGD with dilation yesterday Tolerating full liquid diet and wants diet advanced. Physical Exam Vital signs: Vital Signs 01/29/18 14:15 01/29/18 16:00 01/29/18 16:03 Temperature 98 F 98.8 F Pulse Rate 84 83 85 Respiratory Rate 18 16 Blood Pressure 148/60 H 145/67 H 123/61 Pulse Oximetry 100 100 100 01/29/18 20:00 01/30/18 00:00 01/30/18 01:30 Temperature 98.7 F 98.6 F Pulse Rate 83 65 Respiratory Rate 18 18 17 Blood Pressure 168/78 H 148/77 H Pulse Oximetry 100 99 01/30/18 04:00 Temperature 98.7 F Pulse Rate 70 Respiratory Rate 18 Blood Pressure 159/79 H Pulse Oximetry 99 Intake & Output 01/29/18 01/30/18 01/30/18 18:59 06:59 18:59 Intake Total 300 / 300 240 / 240 Balance 300 / 300 240 / 240 Weight 75 kg 82.1 kg Intake: Oral 240 / 240 Anesthesia Amount 300 / 300 Other: # Voids 3 Date of Last Bowel Movement 01/26/18 Weight On Admission 82.1 kg Narrative: General: NAD, AAOx3 Chest: CTA Cardiac: Regular Abd: +BS, soft ND/NT Ext: No edema Results - Labs CBC & Chem 7: 01/30/18 04:32 01/30/18 04:32 Laboratory Results - last 24 hr 01/29/18 01/29/18 01/29/18 10:40 10:40 10:40 WBC 10.5 RBC 4.07 L Hgb 13.2 Hct 39.1 MCV 96.2 MCH 32.5 MCHC 33.8 RDW 12.7 Plt Count 120 L MPV 9.5 Neut % (Auto) 84.7 H Lymph % (Auto) 6.6 L [place] % (Auto) 8.1 H Eos % (Auto) 0.3 Baso % (Auto) 0.3 Neut # (Auto) 8.9 H Lymph # (Auto) 0.7 L [place] # (Auto) 0.8 Eos # (Auto) 0.0 Baso # (Auto) 0.0 WBC Differential . Differential Comment Auto diff final PT 10.7 INR 1.1 Sodium 140 Potassium 4.1 Chloride 106 Carbon Dioxide 23.2 Anion Gap 11 BUN 19 H Creatinine 1.40 H Estimated GFR 49 L Random Glucose 128 H Calcium 8.5 Total Creatine Kinase 108 Troponin I Less than 0.02 L 01/29/18 01/30/18 01/30/18 10:40 04:32 04:32 WBC 6.7 RBC 3.94 L Hgb 12.7 L Hct 37.6 L MCV 95.5 MCH 32.2 MCHC 33.7 RDW 12.4 Plt Count 121 L MPV 9.0 Neut % (Auto) 77.6 H Lymph % (Auto) 12.8 [place] % (Auto) 7.8 Eos % (Auto) 1.6 Baso % (Auto) 0.2 Neut # (Auto) 5.2 Lymph # (Auto) 0.9 L [place] # (Auto) 0.5 Eos # (Auto) 0.1 Baso # (Auto) 0.0 WBC Differential . Differential Comment Auto diff final PT INR Sodium 141 Potassium 4.3 Chloride 104 Carbon Dioxide 28.9 Anion Gap 8 BUN 17 Creatinine 1.47 H Estimated GFR 46 L Random Glucose 100 Calcium 8.4 L Total Creatine Kinase Cancelled Troponin I - Imaging Impressions Head CT 01/29/18 10:38 CONCLUSION: 1. No focal or acute intracranial hemorrhage. 2. Stable bilateral cortical atrophy. Tiny old lacunar infarct in the right basal ganglia. 3. Otherwise, no other new or significant changes are demonstrated compared to the prior study. . Ribs X-Ray 01/29/18 10:42 CONCLUSION: 1. There appears to be a nondisplaced fracture involving the lateral aspect of the right seventh rib. 2. Stable multiple old healed right-sided rib fractures are again demonstrated not significant changed compared to the prior chest x-ray. Cervical Spine CT 01/29/18 10:47 CONCLUSION: 1. No acute bony fracture. 2. Mild primary bony degenerative changes, disc degeneration and disc space narrowing at C4-5 and C5-6. 3. Broad-based bulging with disc osteophyte complex at C4-5 and C5-6. 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 Pt reports that he has had issues with vertigo and occasionally uses Antivert. - Pt presented to the ED at [facility] [place] on 01/28/18 after a suspected syncopal episode. He started having some lightheadedness and dizziness last night and after he sat down on the commode to urinate, he does not recall what happened after that but woke up on the bathroom floor and was unable to get up off the floor under his own power. He was able to notify his family who found him around 9AM. - Etiology for the suspected syncopal episode is unclear. Possibly related to orthostatic hypotension secondary to dehydration vs. dysrhythmia vs. TIA vs. seizure vs. other - Head CT (01/29/18) --> no focal or acute intracranial hemorrhage, stable bilateral cortical atrophy, tiny old lacunar infarct in the right basal ganglia , otherwise, no other new or significant changes are demonstrated compared to the prior study. - Neck CT (01/29/18) --> No acute bony fracture, mild primary bony degenerative changes, disc degeneration and disc space narrowing at C4-5 and C5-6, and broad- based bulging with disc osteophyte complex at C4-5 and C5-6. - Orthostatic vital signs were ordered yesterday and were not done. - IVF were ordered on the pt but were not given overnight. - Telemetry - PT evaluation in AM - Cont. Acute on chronic kidney disease Dehydration Dysphagia Poor oral intake Thrush - Pts labs in the ED notes some degree of dehydration, previous Cr was 0.99. Labs at admission with Cr 1.40. - Pt has not been eating or drinking well. He has had issues with dysphagia which has been a long standing issue but seems to be worse over the last few months. - GI was consulted at admission regarding the dysphagia - Pt underwent EGD with dilation on 01/29/18 --> benign distal esophageal stricture moderate causing resistance to scope passage the rest of the esophagus was unremarkable a guidewire was passed and a 15 mm savory dilator was used to dilate the esophagus subsequently a small esophageal rent was noted - Pt has been tolerating full liquids without any dysphagia today, increase diet to soft diet today - Cont. Nystatin S/S - Cr worse today but pt did not receive any IVF overnight. - Spoke with charge nurse. Pt to have better IV access placed and continue IVF today. - Repeat labs in AM - PPI Close rib fracture - Rib Xray (01/29/18) --> There appears to be a nondisplaced fracture involving the lateral aspect of the right seventh rib. Stable multiple old healed right- sided rib fractures are again demonstrated not significant changed compared to the prior chest x-ray. - IS - Pain control PRN CAD HTN Hyperlipidemia - Resume home meds - Monitor vitals, checkin orthostatics Hx of seizure as late effect from CVA Hx of CVA - Cont. home meds The exam, history, and the medical decision-making described in the above note were completed with the assistance of the mid-level provider. I reviewed and agree with the findings presented. I attest that I had a [id number] encounter with the patient on the same day, and personally performed and documented my assessment and findings in the medical record. esophageal stricture dilated. advance diet. ivf order given last night not completed by staff. nurse hanging now.will delay dc. PT eval...pt likely will benefit from snf but he seems to be leaning more toward hhc/pt only. (2) Closed rib fracture Code(s): S22.39XA - Fracture of one rib, unspecified side, initial encounter for closed fracture Status: Acute (3) Dysphagia Code(s): R13.10 - Dysphagia, unspecified Status: Chronic (4) Acute on chronic renal insufficiency Code(s): N28.9 - Disorder of kidney and ureter, unspecified; N18.9 - Chronic kidney disease, unspecified Status: Acute (5) History of seizures Code(s): Z87.898 - Personal history of other specified conditions Status: Chronic (6) CAD (coronary artery disease) Code(s): I25.10 - Atherosclerotic heart disease of [place] coronary artery without angina pectoris Status: Chronic (7) HTN (hypertension) Code(s): I10 - Essential (primary) hypertension Status: Chronic (8) Hyperlipidemia Code(s): E78.5 - Hyperlipidemia, unspecified Status: Chronic (9) History of CVA (cerebrovascular accident) Code(s): Z86.73 - Personal history of transient ischemic attack (TIA), and cerebral infarction without residual deficits Status: Chronic
[2018-01-30] MEDS: Latanoprost 0.005% Opth Drops 2.5 ML Bottle EACH EYE SCH (21:38)
[2018-01-31] MEDS: Sod Chloride 0.9% Inj 1,000 ML IV.CONT SCH ×2 (05:59→15:03)
[2018-01-31 06:48] LABS: Calcium 8.2 mg/dL (8.5-10.1); Carbon Dioxide 28.4 meq/L (21.0-32.0); Potassium 4.4 meq/L (3.5-5.1)
[2018-01-31] MEDS: levETIRAcetam 500 MG Tablet PO SCH ×2 (08:50→21:32)
[2018-01-31] MEDS: Metoprolol Tartrate 50 MG Tablet PO SCH ×2 (08:50→21:33)
[2018-01-31] MEDS: Nystatin Liq 500,000 UNIT/5 ML UDC SWISH-SWAL SCH ×4 (08:50→21:37)
[2018-01-31] MEDS: Isosorbide Mononitrate 30 MG ER 24HR Tablet (Imdur) PO SCH ×2 (08:50→21:33)
[2018-01-31] MEDS: Primidone 250 MG Tablet PO SCH ×3 (08:50→17:49)
[2018-01-31] MEDS: Timolol 0.5% Drops 5 ML Bottle EACH EYE SCH ×2 (08:54→21:37)
[2018-01-31] MEDS: Senna/Docusate Sodium 8.6/50 MG Tablet PO SCH ×2 (08:58→21:33)
--- NOTE | 2018-01-31 12:27 | P.PNIM ---
Subjective Interval history: Pt feeling better today Tolerating soft diet He is agreeable to SNF placement at discharge Physical Exam Vital signs: Vital Signs 01/30/18 20:00 01/31/18 00:00 01/31/18 04:00 Temperature 97.5 F L 97.7 F 97.9 F Pulse Rate 69 66 75 Respiratory Rate 16 16 16 Blood Pressure 153/73 H 147/68 H 138/64 Pulse Oximetry 99 99 99 01/31/18 08:00 01/31/18 11:54 Temperature 98.1 F 97.8 F Pulse Rate 85 84 Respiratory Rate 16 17 Blood Pressure 155/76 H 150/79 H Pulse Oximetry 96 98 Intake & Output 01/30/18 01/31/18 01/31/18 18:59 06:59 18:59 Intake Total 300 / 300 1000 / 1000 Output Total 400 / 400 Balance -100 / -100 1000 / 1000 Weight 82 kg Intake: IV 1000 / 1000 NS Inj 1,000 ML @ 84 mls/hr IV. 1000 / 1000 CONT .[id number] [facility] Rx#:[id number] Oral 300 / 300 Output: Urine 400 / 400 Other: Date of Last Bowel Movement 01/26/18 Narrative: General: NAD, AAOx3 Chest: CTA Cardiac: Regular Abd: +BS, soft ND/NT Ext: No edema Results - Labs CBC & Chem 7: 01/30/18 04:32 01/31/18 04:49 Laboratory Results - last 24 hr 01/31/18 04:49 Sodium 141 Potassium 4.4 Chloride 106 Carbon Dioxide 28.4 Anion Gap 7 BUN 15 Creatinine 1.28 Estimated GFR 54 L Random Glucose 97 Calcium 8.2 L - Imaging Head CT 01/29/18 10:38 CONCLUSION: 1. No focal or acute intracranial hemorrhage. 2. Stable bilateral cortical atrophy. Tiny old lacunar infarct in the right basal ganglia. 3. Otherwise, no other new or significant changes are demonstrated compared to the prior study. . Ribs X-Ray 01/29/18 10:42 CONCLUSION: 1. There appears to be a nondisplaced fracture involving the lateral aspect of the right seventh rib. 2. Stable multiple old healed right-sided rib fractures are again demonstrated not significant changed compared to the prior chest x-ray. Cervical Spine CT 01/29/18 10:47 CONCLUSION: 1. No acute bony fracture. 2. Mild primary bony degenerative changes, disc degeneration and disc space narrowing at C4-5 and C5-6. 3. Broad-based bulging with disc osteophyte complex at C4-5 and C5-6. 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 Pt reports that he has had issues with vertigo and occasionally uses Antivert. - Pt presented to the ED at [facility] [place] on 01/28/18 after a suspected syncopal episode. He started having some lightheadedness and dizziness last night and after he sat down on the commode to urinate, he does not recall what happened after that but woke up on the bathroom floor and was unable to get up off the floor under his own power. He was able to notify his family who found him around 9AM. - Etiology for the suspected syncopal episode is unclear. Possibly related to orthostatic hypotension secondary to dehydration vs. dysrhythmia vs. TIA vs. seizure vs. other - Head CT (01/29/18) --> no focal or acute intracranial hemorrhage, stable bilateral cortical atrophy, tiny old lacunar infarct in the right basal ganglia , otherwise, no other new or significant changes are demonstrated compared to the prior study. - Neck CT (01/29/18) --> No acute bony fracture, mild primary bony degenerative changes, disc degeneration and disc space narrowing at C4-5 and C5-6, and broad- based bulging with disc osteophyte complex at C4-5 and C5-6. - Orthostatic vital signs were checked on 01/30 --> Supine: 158/79, HR 105; Sittin/84, HR 104, standin/78, HR 96 - IVF were given on 01/30 - Telemetry without any significant abnormality - PT recommending rehab - Pt planned for discharge to SNF today. He will need to followup in 1 week with his PCP, after discharge from the SNF. Acute on chronic kidney disease Dehydration Dysphagia Poor oral intake Thrush - Pts labs in the ED notes some degree of dehydration, previous Cr was 0.99. Labs at admission with Cr 1.40. - Pt has not been eating or drinking well. He has had issues with dysphagia which has been a long standing issue but seems to be worse over the last few months. - GI was consulted at admission regarding the dysphagia - Pt underwent EGD with dilation on 01/29/18 --> benign distal esophageal stricture moderate causing resistance to scope passage the rest of the esophagus was unremarkable a guidewire was passed and a 15 mm savory dilator was used to dilate the esophagus subsequently a small esophageal rent was noted - Pt has been tolerating full liquids without any dysphagia today, increase diet to soft diet today - Cont. Nystatin S/S x 4 more days. - Cr improved to 1.28 on 01/31 - PPI Close rib fracture - Rib Xray (01/29/18) --> There appears to be a nondisplaced fracture involving the lateral aspect of the right seventh rib. Stable multiple old healed right- sided rib fractures are again demonstrated not significant changed compared to the prior chest x-ray. - IS - Pain control PRN CAD HTN Hyperlipidemia - Resume home meds - Monitor vitals, checkin orthostatics Hx of seizure as late effect from CVA Hx of CVA - Cont. home meds The exam, history, and the medical decision-making described in the above note were completed with the assistance of the mid-level provider. I reviewed and agree with the findings presented. I attest that I had a [id number] encounter with the patient on the same day, and personally performed and documented my assessment and findings in the medical record. stable. dc to snf. family out of town this week per pt. (2) Closed rib fracture Code(s): S22.39XA - Fracture of one rib, unspecified side, initial encounter for closed fracture Status: Acute (3) Dysphagia Code(s): R13.10 - Dysphagia, unspecified Status: Chronic (4) Acute on chronic renal insufficiency Code(s): N28.9 - Disorder of kidney and ureter, unspecified; N18.9 - Chronic kidney disease, unspecified Status: Acute (5) History of seizures Code(s): Z87.898 - Personal history of other specified conditions Status: Chronic (6) CAD (coronary artery disease) Code(s): I25.10 - Atherosclerotic heart disease of [place] coronary artery without angina pectoris Status: Chronic (7) HTN (hypertension) Code(s): I10 - Essential (primary) hypertension Status: Chronic (8) Hyperlipidemia Code(s): E78.5 - Hyperlipidemia, unspecified Status: Chronic (9) History of CVA (cerebrovascular accident) Code(s): Z86.73 - Personal history of transient ischemic attack (TIA), and cerebral infarction without residual deficits Status: Chronic
--- NOTE | 2018-01-31 17:46 | ECG ---
Date Performed: 01/29/2018 Time Performed: 10:20:10 PTAGE: 82 years EKG: Sinus rhythm NORMAL ECG PREVIOUS TRACING : 11/22/2016 14.10 DOCTOR: Flora Roque Interpretating Date/Time 01/31/2018 17:39:38
[2018-01-31] MEDS: Latanoprost 0.005% Opth Drops 2.5 ML Bottle EACH EYE SCH (21:37)
[2018-02-01] MEDS: Sod Chloride 0.9% Inj 1,000 ML IV.CONT SCH ×2 (02:29→14:11)
[2018-02-01] MEDS: Acetaminophen 325 MG Tablet PO PRN ×3 (05:33→17:16)
[2018-02-01] MEDS: Nystatin Liq 500,000 UNIT/5 ML UDC SWISH-SWAL SCH ×5 (09:22→20:29)
[2018-02-01] MEDS: Senna/Docusate Sodium 8.6/50 MG Tablet PO SCH ×2 (09:22→20:29)
[2018-02-01] MEDS: Metoprolol Tartrate 50 MG Tablet PO SCH ×2 (09:22→20:30)
[2018-02-01] MEDS: Timolol 0.5% Drops 5 ML Bottle EACH EYE SCH ×2 (09:23→20:40)
[2018-02-01] MEDS: Primidone 250 MG Tablet PO SCH ×4 (09:23→17:17)
[2018-02-01] MEDS: levETIRAcetam 500 MG Tablet PO SCH ×2 (09:23→20:29)
[2018-02-01] MEDS: Isosorbide Mononitrate 30 MG ER 24HR Tablet (Imdur) PO SCH ×2 (09:23→20:29)
--- NOTE | 2018-02-01 09:59 | P.PNIM ---
Subjective Interval history: pt eating breakfast. in chair dc held up yesterday.I'm told no bed at [facility] Physical Exam Vital signs: Vital Signs 01/31/18 11:54 01/31/18 16:00 01/31/18 19:19 Temperature 97.8 F 98.3 F 98.3 F Pulse Rate 84 88 95 H Respiratory Rate 17 18 18 Blood Pressure 150/79 H 137/67 154/89 H Pulse Oximetry 98 97 96 01/31/18 20:00 01/31/18 23:08 02/01/18 00:00 Temperature 97.9 F Pulse Rate 91 H 78 64 Respiratory Rate 18 Blood Pressure 136/71 Pulse Oximetry 98 02/01/18 03:25 02/01/18 07:18 02/01/18 08:00 Temperature 97.7 F 98.0 F Pulse Rate 68 69 82 Respiratory Rate 18 18 Blood Pressure 150/72 H 115/64 Pulse Oximetry 94 L 98 02/01/18 09:00 Temperature Pulse Rate 67 Respiratory Rate Blood Pressure Pulse Oximetry Intake & Output 01/31/18 02/01/18 02/01/18 18:59 06:59 18:59 Intake Total 1000 / 1000 480 / 480 Balance 1000 / 1000 480 / 480 Weight 82 kg Intake: Oral 1000 / 1000 480 / 480 Other: # Voids 3 2 Date of Last Bowel Movement 01/31/18 01/31/18 # Bowel Movements 0 heart reg lung cta abd s/nt ext no edema Results - Labs CBC & Chem 7: 01/30/18 04:32 01/31/18 04:49 Assessment and Plan - Assessment (1) Syncope Code(s): R55 - Syncope and collapse Status: Acute Plan: Syncopal episode - Pt is an 82 y/o WM with hx of CVA, 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 Pt reports that he has had issues with vertigo and occasionally uses Antivert. - [place] [facility] [place] after a suspected syncopal episode. He started having some lightheadedness and dizziness last night and after he sat down on the commode to urinate, he does not recall what happened after that but woke up on the bathroom floor and was unable to get up off the floor under his own power. He was able to notify his family who found him around 9AM. - Etiology for the suspected syncopal episode is unclear. Possibly related to orthostatic hypotension secondary to dehydration vs. dysrhythmia vs. TIA vs. seizure vs. other - Head CT (01/29/18) --> no focal or acute intracranial hemorrhage, stable bilateral cortical atrophy, tiny old lacunar infarct in the right basal ganglia , otherwise, no other new or significant changes are demonstrated compared to the prior study. - Neck CT (01/29/18) --> No acute bony fracture, mild primary bony degenerative changes, disc degeneration and disc space narrowing at C4-5 and C5-6, and broad- based bulging with disc osteophyte complex at C4-5 and C5-6. - Orthostatic vital signs were checked on 01/30 --> Supine: 158/79, HR 105; Sittin/84, HR 104, standin/78, HR 96 - IVF were given on 01/30 - Telemetry without any significant abnormality - PT recommending rehab - Pt planned for discharge to SNF 01/31...Still awaiting a bed to open at snf. discussed with CM. He will need to followup in 1 week with his PCP, after discharge from the SNF. Acute on chronic kidney disease Dehydration Dysphagia Poor oral intake Thrush - Pts labs in the ED notes some degree of dehydration, previous Cr was 0.99. Labs at admission with Cr 1.40. - Pt has not been eating or drinking well. He has had issues with dysphagia which has been a long standing issue but seems to be worse over the last few months. - GI was consulted at admission regarding the dysphagia - Pt underwent EGD with dilation on 01/29/18 --> benign distal esophageal stricture moderate causing resistance to scope passage the rest of the esophagus was unremarkable a guidewire was passed and a 15 mm savory dilator was used to dilate the esophagus subsequently a small esophageal rent was noted - Pt has been tolerating full liquids without any dysphagia today, increase diet to soft diet today - Cont. Nystatin S/S x 4 more days. - Cr improved to 1.28 on 01/31 - PPI Close rib fracture - Rib Xray (01/29/18) --> There appears to be a nondisplaced fracture involving the lateral aspect of the right seventh rib. Stable multiple old healed right- sided rib fractures are again demonstrated not significant changed compared to the prior chest x-ray. - IS - Pain control PRN CAD HTN Hyperlipidemia - Resume home meds - Monitor vitals, checkin orthostatics Hx of seizure as late effect from CVA Hx of CVA - Cont. home meds (2) Closed rib fracture Code(s): S22.39XA - Fracture of one rib, unspecified side, initial encounter for closed fracture Status: Acute (3) Dysphagia Code(s): R13.10 - Dysphagia, unspecified Status: Chronic (4) Acute on chronic renal insufficiency Code(s): N28.9 - Disorder of kidney and ureter, unspecified; N18.9 - Chronic kidney disease, unspecified Status: Acute (5) History of seizures Code(s): Z87.898 - Personal history of other specified conditions Status: Chronic (6) CAD (coronary artery disease) Code(s): I25.10 - Atherosclerotic heart disease of [place] coronary artery without angina pectoris Status: Chronic (7) HTN (hypertension) Code(s): I10 - Essential (primary) hypertension Status: Chronic (8) Hyperlipidemia Code(s): E78.5 - Hyperlipidemia, unspecified Status: Chronic (9) History of CVA (cerebrovascular accident) Code(s): Z86.73 - Personal history of transient ischemic attack (TIA), and cerebral infarction without residual deficits Status: Chronic
[2018-02-01] MEDS: Latanoprost 0.005% Opth Drops 2.5 ML Bottle EACH EYE SCH (20:35)
[2018-02-02] MEDS: Sod Chloride 0.9% Inj 1,000 ML IV.CONT SCH (02:31)
[2018-02-02 05:04] LABS: Bilirubin,Urine Negative (Negative); Clarity,Urine Clear (Clear); Color,Urine Straw (Yellw/Straw); Glucose,Urine (UA) Negative (Negative); Leukocyte Esterase,Urine Negative (Negative); Nitrite,Urine Negative (Negative); Specific Gravity,Urine 1.006 (1.002-1.035)
[2018-02-02 09:14] VITALS: O2SAT 99
[2018-02-02] MEDS: Senna/Docusate Sodium 8.6/50 MG Tablet PO SCH (09:32)
[2018-02-02] MEDS: Isosorbide Mononitrate 30 MG ER 24HR Tablet (Imdur) PO SCH (09:32)
[2018-02-02] MEDS: Metoprolol Tartrate 50 MG Tablet PO SCH (09:32)
[2018-02-02] MEDS: Timolol 0.5% Drops 5 ML Bottle EACH EYE SCH (09:32)
[2018-02-02] MEDS: Nystatin Liq 500,000 UNIT/5 ML UDC SWISH-SWAL SCH ×2 (09:32→12:37)
[2018-02-02] MEDS: levETIRAcetam 500 MG Tablet PO SCH (09:32)
[2018-02-02] MEDS: Primidone 250 MG Tablet PO SCH ×2 (09:32→12:37)
[2018-02-02] MEDS: Acetaminophen 325 MG Tablet PO PRN ×2 (12:37)
[2018-02-02 13:23] VITALS: BP 146/71; PULSE 65; RESP 18; TEMP 98.2
--- NOTE | 2018-02-15 13:46 | P.DS ---
Date of admission: 01/29/18 11:47 Primary care physician: Cayden Tavarez MD Attending physician on discharge: Alvin Valente Anticipated date of discharge: 02/01/18 Brief History from admission: Mr. 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 Pt reports that he has had issues with vertigo and occasionally uses Antivert but has not used this in the last month. Pt reports that he lives alone but uses a wheeled walker for assistance in mobilization. [place] [facility] [place] after a suspected syncopal episode. Pts daughter is at bedside and assists with the history. Apparently last night around 3AM he started having some lightheadedness and dizziness while he was sitting down watching TV. He was using his walker to get to the bathroom and sat down on the commode to urinate. He does not recall what happened after that but woke up on the bathroom floor and was unable to get up off the floor under his own power. Around 9Am he used his Ericka device to call his son-in-law and his daughter and son-in-law came to the house and found him on the floor in the bathroom. There was no noted loss of bowel or bladder function. No reported tongue biting. No obvious extremity injuries but complains of right sided rib pain. He had a Head CT in the ED which showed no focal or acute intracranial hemorrhage, stable bilateral cortical atrophy, tiny old lacunar infarct in the right basal ganglia , otherwise, no other new or significant changes are demonstrated compared to the prior study. Pts labs in the ED notes some degree of dehydration. Pt has not been eating or drinking well. He has had issues with dysphagia which has been a long standing issue but seems to be worse over the last few months. He had an EGD with dilation on 11/28/[address] Palafox which noted two esophageal strictures, one at the proximal esophagus and one at the distal esophagus, both dilated to 14mm, mild gastritis, and GERD. 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 Palafox --> two esophageal strictures, one at the proximal esophagus and one at the distal esophagus, both dilated to 14mm, mild gastritis, GERD Coronary artery bypass graft 3 vessels in 1995 Multiple stents Appendectomy Right cataract surgery Left humerus fracture repair Family Hx: Noncontributory Social Hx: Denies any alcohol, tobacco or illicit drug use Uses a wheeled walker. Occasionally goes grocery shopping with assisted devices DS: Diagnosis - Discharge Diagnosis (1) Syncope Status: Acute (2) Closed rib fracture Status: Acute (3) Dysphagia Status: Chronic (4) Acute on chronic renal insufficiency Status: Acute (5) History of seizures Status: Chronic (6) CAD (coronary artery disease) Status: Chronic (7) HTN (hypertension) Status: Chronic (8) Hyperlipidemia Status: Chronic (9) History of CVA (cerebrovascular accident) Status: Chronic DS: Medications - Discharge Medications Prescriptions: alprazolam 0.5 mg PO TID PRN #10 tab PRN Reason: Anxiety DS: Summary Hospital Course: Syncopal episode - Pt is an 82 y/o WM with hx of CVA, 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 Pt reports that he has had issues with vertigo and occasionally uses Antivert. Pt [place] [facility] [place] after a suspected syncopal episode. He started having some lightheadedness and dizziness last night and after he sat down on the commode to urinate, he does not recall what happened after that but woke up on the bathroom floor and was unable to get up off the floor under his own power. He was able to notify his family who found him around 9AM. Head CT ( 01/29/18) --> no focal or acute intracranial hemorrhage, stable bilateral cortical atrophy, tiny old lacunar infarct in the right basal ganglia, otherwise , no other new or significant changes are demonstrated compared to the prior study. Neck CT (01/29/18) --> No acute bony fracture, mild primary bony degenerative changes, disc degeneration and disc space narrowing at C4-5 and C5- 6, and broad-based bulging with disc osteophyte complex at C4-5 and C5-6. Orthostatic vital signs were checked on 01/30 --> Supine: 158/79, HR 105; Sitting : 144/84, HR 104, standin/78, HR 96. Pt was given IVF on 01/30. Telemetry without any significant abnormality. PT recommended rehab. Pt was planned for discharge to SNF 01/31 but was delayed awaiting a bed to open at SNF. He will need to followup in 1 week with his PCP, after discharge from the SNF. Acute on chronic kidney disease Dehydration Dysphagia Poor oral intake Thrush - Pts labs in the ED notes some degree of dehydration, previous Cr was 0.99. Labs at admission with Cr 1.40. Pt had not been eating or drinking well. He has had issues with dysphagia which has been a long standing issue but seems to be worse over the last few months. GI was consulted at admission regarding the dysphagia. Pt underwent EGD with dilation on 01/29/18 --> benign distal esophageal stricture moderate causing resistance to scope passage the rest of the esophagus was unremarkable a guidewire was passed and a 15 mm savory dilator was used to dilate the esophagus subsequently a small esophageal rent was noted. Pt tolerated full liquids without any dysphagia following the procedure and diet was increased to soft diet. His Cr improved to 1.28 on 01/31. Cont. Nystatin S/S x 4 more days following discharge. Close rib fracture - Rib Xray (01/29/18) --> There appears to be a nondisplaced fracture involving the lateral aspect of the right seventh rib. Stable multiple old healed right- sided rib fractures are again demonstrated not significant changed compared to the prior chest x-ray. Cont use of IS and pain control PRN CAD HTN Hyperlipidemia - Cont. home meds Hx of seizure as late effect from CVA Hx of CVA - Cont. home meds - Time Spent with Patient Total time spent providing and/or coordinating discharge services: Greater than 30 minutes - Quality: VTE Deep Vein Thrombosis/Pulmonary Embolism Present on Admission: No Results Procedures completed during hospitalization: See summary above - Impressions ITS Impressions Head CT 01/29/18 10:38 CONCLUSION: 1. No focal or acute intracranial hemorrhage. 2. Stable bilateral cortical atrophy. Tiny old lacunar infarct in the right basal ganglia. 3. Otherwise, no other new or significant changes are demonstrated compared to the prior study. . Ribs X-Ray 01/29/18 10:42 CONCLUSION: 1. There appears to be a nondisplaced fracture involving the lateral aspect of the right seventh rib. 2. Stable multiple old healed right-sided rib fractures are again demonstrated not significant changed compared to the prior chest x-ray. Cervical Spine CT 01/29/18 10:47 CONCLUSION: 1. No acute bony fracture. 2. Mild primary bony degenerative changes, disc degeneration and disc space narrowing at C4-5 and C5-6. 3. Broad-based bulging with disc osteophyte complex at C4-5 and C5-6. Discharge Plan - Discharge Disposition Patient Disposition: 03 Discharge to SNF - Discharge Condition Condition: Stable - Discharge Order Discharge Orders: Discharge Order (Routine); Ordered 01/31/18 Ordered By: Cynthia Uribe - Discharge Details Anticipated Discharge Date: 02/01/18 - Physicians Team Primary Care Provider: Cayden Tavarez Attending Provider: Alvin Valnete Other Providers: Nick Lyman MD ; [facility]
== END 2018-02-02 16:29 ==
LOC: NEDA 10:08 → NEPC 10:08 → NEDA 14:35 → N06 17:14
PROVIDERS: ADMIT Hospitalist; ATTEND Hospitalist